=== PATIENT | male | born 1980 | race Caucasian/White ===

== ENCOUNTER 2018-05-24 16:10 | Outpatient (REF) | payer BC, SELFPAY ==
[2018-05-24 18:43] LABS: COMMENT (LAB VIEW ONLY) 47.69 mg/dL; Microalb ug/mg Crea 7.1 ug/mg Cr
== END 2018-05-24 16:30 ==
LOC: NCHCN 16:10
PROVIDERS: PCP Family Medicine; Visit Provider Family Medicine
DX: E11.9 Type 2 diabetes mellitus without complications (principal)
CPT/HCPCS: 82043; 82570

== ENCOUNTER 2018-08-13 08:01 | Outpatient (CLI) | payer BC, SELFPAY ==
--- NOTE | 2018-08-13 | PFT_ITS ---
PULMONARY FUNCTION TEST REPORT DATE OF DICTATION August 23, 2018 Patient identification - Sarabjit Valdez DATE OF - 80 DATE OF SERVICE - August 13, 2018 REQUESTING PROVIDER - Temo Narvaez M.D. INTERPRETATION OF STUDY Spirometry shows no evidence of obstructive airways disease, No bronchodilator response. LUNG VOLUMES - Lung volumes no evidence of restriction. DIFFUSION CAPACITY- Normal. AIRWAY RESISTANCE - Normal. IMPRESSION Overall normal pulmonary function study. Clinical correlation recommended. When this study was compared to previous once from 01/01/15, the patient had an overall 190 cc improvement in FVC. FEV1 has improved by 80 cc. Clinical correlation recommended. Bess Suazo M.D. ROSEMARY/karina T - 08/23/2018
[2018-08-13] MEDS: Albuterol HFA 18 GM 200 PUFF INH IH (08:54)
[2018-08-13] MEDS: Inhaler, Assist Device 1 EACH MC (08:54)
== END 2018-08-13 08:21 ==
PROVIDERS: PCP Family Medicine; Visit Provider Family Medicine
DX: J45.40 Moderate persistent asthma, uncomplicated (principal); F17.200 Nicotine dependence, unspecified, uncomplicated
CPT/HCPCS: 94060; 94150; 94726; 94729

== ENCOUNTER 2018-08-30 17:30 | Emergency (ER) | payer BC, SELFPAY ==
[2018-08-30 17:36] VITALS: BP 120/86; PULSE 103; RESP 18; O2SAT 99
--- NOTE | 2018-08-30 17:41 | W.ED.GENAD ---
Discharge Plan Disposition Patient Disposition: HOME Condition: Good Discharge Details Chief Complaint: Abd Prob Clinical Impression: Eosinophilia, Abdominal pain Primary Care Provider: Temo Narvaez ED Provider: Sherman Stapleton Home Meds and New Rx's Prescriptions: New acetaminophen [Mapap Extra Strength] 500 MG tablet 1,000 mg PO Q6H 5 Days Qty: 60 RF: 0 ibuprofen [Motrin IB] 200 MG tablet 600 mg PO Q6H 5 Days Qty: 60 RF: 0 ondansetron HCl [Zofran] 4 mg tablet 4 mg PO TID PRN (Reason: nausea and vomiting) Qty: 10 RF: 0 hydrocodone-acetaminophen [[place]] 7.5-325 mg tablet 1 tab PO Q6H Qty: 4 RF: 0 No Action metformin 500 MG tablet 1,000 mg PO DAILY RF: 0 chlorthalidone 25 MG tablet 12.5 mg PO DAILY RF: 0 azelastine 137 MCG/0.137 ML aerosol,spray 2 spry NS QID RF: 0 Nicotine [Nicoderm Cq] 1 EACH PATCH.TD24 1 ea Transdermal DAILY RF: 0 PROVENTIL HFA 18 GM HFA.AER.AD 2 puff Inhalation Q4H PRN RF: 0 lisinopril 20 MG tablet 20 mg PO DAILY RF: 0 mometasone [Nasonex] 17 GM spray,non-aerosol 2 spry NS DAILY RF: 0 Ponaris 30 ML solution 30 ml NS QID PRNRF: 0 Advair Diskus 1 EACH blister with device 1 ea Inhalation BID RF: 0 montelukast 10 MG tablet 10 mg PO DAILY RF: 0 Prilosec OTC 20 MG tablet,delayed release (DR/EC) 20 mg PO DAILY RF: 0 loratadine 10 MG tablet 1 tab PO DAILY RF: 0 ibuprofen 800 MG tablet 800 mg PO TID PRNQty: 20 RF: 0 Flovent HFA 120 PUFF HFA aerosol inhaler 1 puff Inhalation BID RF: 0 Discharge Instructions Instructions: Abdominal Pain (ED) Additional Instructions: Please stick with an easy diet for the next few days. As soon as you have a bowel movement please bring it in for further evaluation. Please avoid these following foods: Soy, wheat, egg, milk, peanut/tree nuts, and fish/shellfish . Please follow-up at your scheduled appointment with Dr. Williamson. The clinic will contact you when this is. If you do not hear back within 3-4 days please contact the hospital for this appointment. Please have a low threshold for return. If you notice any worsening of your symptoms, or any new symptoms such as vomiting, diarrhea, fever, chills, shortness of breath, chest pain, numbness, weakness, or fainting , please return immediately to the emergency department for reevaluation. Please follow up with your primary care provider as soon as possible for reassessment and reevaluation. As always, it was a pleasure participating in your medical care today. Referrals: Temo Narvaez [Primary Care Provider] - Medical Decision Making This is a 37-year-old male with a past medical history of diabetes, hypertension, high cholesterol and asthma who presents for abdominal pain with nausea and vomiting. Pain began last night and is gradually worsened. He describes it as a burning sensation. He has never had symptoms like this before. No evidence of testicular torsion clinically on exam. Differential is very concerning for appendicitis, colitis, or diverticulitis. We will get a CT scan to rule this out, control his pain, hydrate him, and assess for other laboratory abnormalities. 9:24 PM Patient's laboratory workup has returned and demonstrates an elevated WBC count at 21 as well as a left shift but surprisingly there is also notable eosinophilia which is certainly atypical of the patient's presentation. Electrolytes, renal function, lipase are all normal. Urinalysis is negative. The patient's CT scan was ordered and showed no evidence of significant acute process. No evidence of appendicitis, small foci of air in the subcutaneous tissues, however on exam there is no clinical findings of necrotizing fasciitis. Continued lack of testicular tenderness. Foci of air seem to be in conjunction with where he has been injecting himself with insulin. Patient's symptoms were notably improved with Tylenol Motrin and Dilaudid. He actually did not do well with the Dilaudid but improved more so with Tylenol and Motrin. Zofran also significantly helped his symptoms. In spite of the negative CT scan, because of the patient's elevated white count and abdominal pain I did contact the surgeon Dr. Williamson. He graciously came and reviewed the case, images, and the patient. We spent an extended period discussing the patient's case, as well as the atypical nature of the laboratory findings and CT. We thoroughly interrogated the patient regarding other potential sources of eosinophilia including foreign travel, recent steroid use, eating of atypical foods, other sick contacts, or occupation. No focal source could be identified. No recent foreign travel. Patient does eat a significant amount of medicine but this is all well cooked. He denies any other significant diet changes except for recently increasing Splenda and decreasing his sugar. At this point Dr. Williamson does not feel that there is any acute surgical abnormality. We are unsure as to the exact reasons for his symptoms. I had a long discussion with the patient, Dr. Williamson, and the patient's family discussing the next step. We did do a p.o. trial patient tolerated crackers and juice well. He had no subsequent vomiting. Pain is controlled. With the patient's current clinical picture, his ability to currently tolerate p.o., his nausea and pain being controlled, we did discuss admission versus discharge, after thorough discussion of the risks and benefits both ways the patient and family have elected to go home. I do feel it is reasonable to respect the patient's wishes at this time. I had an extremely long and thorough discussion with him regarding red flags which to return, the importance of a low threshold for return, as well as close follow-up with Dr. Williamson for surgery on an outpatient basis. We will order outpatient stool studies for ova and parasites as well as Giardia. I have extensively reviewed the treatment plan and discharge instructions with the patient and their family. I have addressed all patient concerns at this time. The patient and family was made aware of what symptoms to monitor for that would warrant a return to the emergency department. Discussed the plan with the patient and family, they demonstrate verbal understanding and agreement with our assessment and plan at this time. ABDOMEN: Liver: Mildly fatty liver. No hepatic masses. Gallbladder and bile ducts: No calcified stones. No ductal dilation. Pancreas: No ductal dilation. No masses. Spleen: No splenomegaly or focal lesions. Adrenals: 9 mm intermediate density, indeterminate left adrenal nodule. Statistically most likely an adenoma. Follow-up as per institutional protocol. Normal morphology the right adrenal gland. Kidneys and ureters: No hydronephrosis. No renal masses. Stomach and bowel: Descending and sigmoid diverticulosis. No focal pathology in the remainder of the colon. Appendix: Normal morphology of the appendix. PELVIS: Bladder: Unremarkable as visualized. Reproductive: Unremarkable as visualized. ABDOMEN and PELVIS: Intraperitoneal space: No free air. No significant fluid collection. Bones/joints: No acute fracture. No dislocation. Soft tissues: Very small foci of inflammatory changes in the subcutaneous fat, right lower quadrant into the pubic region, with minimal skin thickening. Vasculature: No abdominal aortic aneurysm. Lymph nodes: No significantly enlarged lymph nodes. IMPRESSION: 1. No acute findings within the abdomen or pelvis. No evidence of appendicitis. 2. Very small foci of inflammatory changes in the subcutaneous fat, right lower quadrant into the pubic region, with minimal skin thickening. Appear very minimal and benign, question cellulitis or contusion, however described given location of pain in right lower quadrant. 3. Incidental findings as described. Dictated and Authenticated by: Tootie Buenrostro MD. HPI General Date/Time Provider Initiated Documentation: 08/30/18 17:31. HPI Narrative: This is a 37-year-old male with past medical history of diabetes, hypertension, high cholesterol, and asthma who presents today for abdominal pain. Patient states that starting last night he had some mild infraumbilical abdominal pain, with decreased appetite. He ate a small amount of fluid last night but that was all. Since this morning he has had severe lower abdominal pain which she describes as burning. It is present on the left and the right but slightly worse on the right. Does have associated chills. He has regular soft bowels at all times and this is been unchanged. He does admit to nausea and some vomiting. He denies any hematemesis, melena, acholic stool. He denies any dysuria, hematuria or testicular pain. He denies any other modifying factors. He has been taking his diabetes medications as directed. No other complaints at this time. He denies any previous abdominal surgeries. Related Data Home Medications Medication Instructions Recorded Confirmed fluticasone-salmeterol [Advair 1 ea INHALATION BID 11/25/12 08/30/18 250-50 Diskus] montelukast 10 mg PO DAILY 11/25/12 08/30/18 omeprazole magnesium [PriLOSEC Otc] 20 mg PO DAILY 11/25/12 08/30/18 loratadine 1 tab PO DAILY 12/04/13 08/30/18 ibuprofen 800 mg PO TID PRN #20 tablet 07/17/14 08/30/18 fluticasone [Flovent 220MCG] 1 puff INHALATION BID 11/24/16 08/30/18 Nicotine [Nicoderm Cq] 1 ea TRANSDERMAL DAILY script 01/16/18 Proventil Hfa 2 puff INHALATION Q4H PRN inhaler 01/16/18 azelastine 2 spry NS QID spray 01/16/18 08/30/18 chlorthalidone 12.5 mg PO DAILY 01/16/18 08/30/18 metformin 1,000 mg PO DAILY tab-cap 01/16/18 08/30/18 eucalyptus-peppermint oil [Ponaris 30 ml NS QID PRN 01/30/18 08/30/18 Nasal Emollient] lisinopril 20 mg PO DAILY tab-cap 01/30/18 08/30/18 mometasone [Nasonex] 2 spry NS DAILY spray 01/30/18 08/30/18 acetaminophen [Mapap Extra 1,000 mg PO Q6H 5 Days #60 tab 08/30/18 Strength] hydrocodone-acetaminophen [[place]] 1 tab PO Q6H #4 tab 08/30/18 ibuprofen [Motrin Ib] 600 mg PO Q6H 5 Days #60 tab 08/30/18 ondansetron HCl [Zofran] 4 mg PO TID PRN #10 tab 08/30/18 Previous Rx's Medication Instructions Recorded ibuprofen 800 mg PO TID PRN #20 tablet 07/17/14 acetaminophen [Mapap Extra 1,000 mg PO Q6H 5 Days #60 tab 08/30/18 Strength] hydrocodone-acetaminophen [[place]] 1 tab PO Q6H #4 tab 08/30/18 ibuprofen [Motrin Ib] 600 mg PO Q6H 5 Days #60 tab 08/30/18 ondansetron HCl [Zofran] 4 mg PO TID PRN #10 tab 08/30/18 Allergies Allergy/AdvReac Type Severity Reaction Status Date / Time morphine AdvReac severe Unverified 08/30/18 17:39 vomiting General Stated Complaint: Abd Prob TERRI: 3 Review of Systems Review of Systems All systems reviewed & are unremarkable except as noted in HPI and below PFSH Medical History Leukocytosis (leucocytosis) (Acute) Eosinophilia (Acute) Abdominal pain (Acute) Allergic rhinitis Asthma, moderate persistent Cervical spine disease Diabetes mellitus type II, non insulin dependent Fatty liver disease, nonalcoholic Hyperlipidemia Hypertension Obstructive sleep apnea Tobacco abuse Surgical History Excision, Pilonidal Cyst Social History Smoking/Tobacco Use Status: Current every day Exam Narrative Exam Narrative: 1.Const: Well-nourished, Well-developed, appearing stated age 2.Eyes: PERRL, no conjunctival injection, and symmetrical lids. 3.ENT: Atraumatic external nose and ears. Moist MM. Neck: Symmetric, trachea midline, No thyromegaly. 4.CVS: +S1/S2, No murmurs or gallops. Peripheral pulses 2+ and equal in all extremities. Brisk capillary refill in all extremities. 5.RESP: Unlabored respiratory effort. Clear to auscultation bilaterally. No wheezes rales or rhonchi 6.GI: Soft, nondistended, patient does have notable tenderness in the right lower and left lower and infraumbilical region. Pain is made worse with palpation. Positive pain at McBurney's point, negative Lezama sign. Negative obturator and psoas sign. Notable right CVA tenderness with minimal left CVA tenderness. Positive Rovsing sign. Testicular exam was performed with nurse at bedside, bilaterally descended testicles, normal cremasteric reflex bilaterally. 7.MSK: Normocephalic/Atraumatic, Extremities w/o deformity or ttp No cyanosis or clubbing, Normal movement of all extremities 8.Skin: Warm, Dry. No rashes or lesions. 9.Neuro: telephone service adviser II-XII grossly intact. Sensation grossly intact, no focal neurologic deficits. 10.Psych: (AAO) x3. Appropriate mood and affect Course Vital Signs Pulse 103 H 08/30/18 17:36 Respiratory Rate 18 08/30/18 17:36 Blood Pressure 120/86 08/30/18 17:36 Pulse Oximetry 99 08/30/18 17:36 Pulse 103 H 08/30/18 17:36 Respiratory Rate 18 08/30/18 17:36 Blood Pressure 120/86 08/30/18 17:36 Blood Pressure Position Sitting 08/30/18 17:36 Pulse Oximetry 99 08/30/18 17:36 Oxygen Delivery Method Room Air 08/30/18 17:36 Oxygen Flow Rate 0 08/30/18 17:36 Pain Level 10 08/30/18 17:36
[2018-08-30] MEDS: HYDROmorphone 2 MG/ML VIAL 1 MG IVP (17:44)
[2018-08-30 17:51] VITALS: PULSE 91; RESP 10; O2SAT 92
[2018-08-30 17:55] VITALS: BP 133/79; PULSE 86; PULSE 90; O2SAT 96
[2018-08-30 17:55] LABS: Abs Immature Grans 0.06 k/cumm (0.0-0.09); Absolute Basophil Count 0.08 k/cumm (0.0-0.2); Absolute Neutrophil Count 14.69 k/cumm (1.2-6.7); Basophils % 0.4; Eosinophils % 11.1; Immature Grans % 0.3; Lymphocytes % 12.9; Mean Corpuscular Hemoglobin 28.9 pg (27.0-33.0); Mean Corpuscular Volume 84.8 fL (80-95); Mean Platelet Volume 10.1 fL (8.0-11.0); Monocytes % 5.9; Neutrophils % 69.4; Platelet Count 331 x1000/uL (130-400); RBC 5.54 m/cumm (4.50-6.00); RBC Distribution Width 13.6 % (11.8-14.1); White Blood Cell Count 21.17 k/cumm (4.4-10.8)
--- NOTE | 2018-08-30 17:55 | NUR.NOTE ---
Nursing Note: Pt. became very flushed and dizzy while this RN administered IVP dilaudid. About 0.5 mg pushed, pt. became light-headed, felt flushed and dizzy. VS remained stable, HOB lowered, pt. did state pain was much improved and above s/s improved as well. MD Stapleton aware.
[2018-08-30 17:56] LABS: Absolute Eosinophil Count 2.35 k/cumm (0.0-0.7); Absolute Lymphocyte Count 2.73 k/cumm (1.2-3.4); Absolute Monocyte Count 1.25 k/cumm (0.11-0.7)
[2018-08-30] MEDS: Lactated Ringers 1,000 ML 1000 ML IV (17:56)
[2018-08-30 18:00] VITALS: PULSE 91
[2018-08-30 18:07] LABS: ALT 29 U/L (12-78); AST 10 U/L (15-37); Alkaline Phosphatase 96 U/L (46-116); Anion Gap 7.4 mmol/L (3-11); BUN 13 mg/dL (7-18); Bilirubin, Total 0.3 mg/dL (0.2-1.0); CO2 30.6 mmol/L (21.0-32.0); CREATININE 0.97 mg/dL (0.70-1.30); Calcium 9.5 mg/dL (8.5-10.1); Chloride 101 mmol/L (98-107); Glucose 93 mg/dL (70-100); Lipase 182 U/L (73-393); Potassium 4.5 mmol/L (3.5-5.1); Sodium 139 mmol/L (136-145)
[2018-08-30 18:22] LABS: Diff Comment Agrees w/ Instrument; RBC Morphology Normal
[2018-08-30] MEDS: ACETAMINOPHEN 1,000 MG/100 ML BTL 400 MG IVPB (18:36)
[2018-08-30] MEDS: Ketorolac 30 MG/ML VIAL IVP (18:37)
--- NOTE | 2018-08-30 18:40 | DI.CT_ITS ---
SYMPTOM/DIAGNOSIS: SEVERE RLQ PAIN ABDOMEN AND PELVIC CT: Images were performed from the lung bases through the ischial tuberosities after IV and without oral contrast. The appendix appears normal. There is no bowel dilatation or inflammatory change. A few diverticula are seen in the sigmoid region. There is no free air, free fluid or adenopathy. The liver, gallbladder, spleen, pancreas, kidneys and adrenals are unremarkable. The aorta is normal in diameter. The bladder and prostate are unremarkable. No significant bony abnormalities are seen. There is minimal increased density in the subcutaneous fat of the right lower quadrant. The findings could be secondary to injections. Clinical correlation is recommended. There is no evidence of a drainable fluid collection or abscess. IMPRESSION: Areas of nodular increased density in the subcutaneous fat of the right lower anterior abdominal wall may be secondary to injections. Clinical correlation is recommended.
[2018-08-30] MEDS: Omnipaque 350 MG/ML 100 ML BTL IJ (18:46)
[2018-08-30] MEDS: Normal Saline Flush 10 ML SYR IVP (18:47)
--- NOTE | 2018-08-30 19:32 | DI.VRAD_ITS ---
EXAM: CT Abdomen and Pelvis With Contrast EXAM DATE/TIME: 08/30/2018 5:40 PM CLINICAL HISTORY: 37 years old, male; Pain; Abdominal pain; Localized; Right lower quadrant (rlq); Patient HX: Rlq pain, severe TECHNIQUE: Axial computed tomography images of the abdomen and pelvis with intravenous contrast. Coronal and sagittal reformatted images were created and reviewed. COMPARISON: CR PELVIS AP 03/24/2015 2:22 PM FINDINGS: Lower thorax: Minimal dependent subsegmental atelectasis. ABDOMEN: Liver: Mildly fatty liver. No hepatic masses. Gallbladder and bile ducts: No calcified stones. No ductal dilation. Pancreas: No ductal dilation. No masses. Spleen: No splenomegaly or focal lesions. Adrenals: 9 mm intermediate density, indeterminate left adrenal nodule. Statistically most likely an adenoma. Follow-up as per institutional protocol. Normal morphology the right adrenal gland. Kidneys and ureters: No hydronephrosis. No renal masses. Stomach and bowel: Descending and sigmoid diverticulosis. No focal pathology in the remainder of the colon. Appendix: Normal morphology of the appendix. PELVIS: Bladder: Unremarkable as visualized. Reproductive: Unremarkable as visualized. ABDOMEN and PELVIS: Intraperitoneal space: No free air. No significant fluid collection. Bones/joints: No acute fracture. No dislocation. Soft tissues: Very small foci of inflammatory changes in the subcutaneous fat, right lower quadrant into the pubic region, with minimal skin thickening. Vasculature: No abdominal aortic aneurysm. Lymph nodes: No significantly enlarged lymph nodes. IMPRESSION: 1. No acute findings within the abdomen or pelvis. No evidence of appendicitis. 2. Very small foci of inflammatory changes in the subcutaneous fat, right lower quadrant into the pubic region, with minimal skin thickening. Appear very minimal and benign, question cellulitis or contusion, however described given location of pain in right lower quadrant. 3. Incidental findings as described. Dictated and Authenticated by: Tootie Buenrostro MD. Ordering:FILIPE Whitaker MD
[2018-08-30 19:59] VITALS: BP 99/50; PULSE 89; RESP 24; TEMP 37.2; O2SAT 95
[2018-08-30 20:06] LABS: Bilirubin Negative (Negative); Blood Negative (Negative); Clarity Clear; Glucose Negative (Negative); Ketones Negative (Negative); Leukocyte Esterase Negative (Negative); Nitrite Negative (Negative); Urobilinogen 0.2 EU/dL (Up TO 0.2)
--- NOTE | 2018-08-30 20:21 | W.SURGCON ---
Date of service: 08/30/18 Time of Service: 20:21 Assessment and Plan (1) Abdominal pain: Start date: 08/30/18 Start time: 20:27 Current visit: Yes Status: Acute ct shows unremarkable scan there is a focal area of ileus pt having lower abd pain hes hungry and having his normal BM dont see a surgical reason for this finding and may be related to his newly diagnosed DM or the elevated eosinophils (2) Eosinophilia: Start date: 08/30/18 Start time: 20:27 Current visit: Yes Status: Acute unsure but extremely high- may need workup as cause (3) Leukocytosis (leucocytosis): Start date: 08/30/18 Start time: 20:27 Current visit: Yes Status: Acute poss related to the ileus poss new onset IBD History of Present Illness Chief Complaint: abddominal pain Review of Systems Constitutional Reports as per HPI Gastrointestinal Reports as per HPI and Reports abdominal pain (lower abdomen) PFSH Medical History Allergic rhinitis Asthma, moderate persistent Cervical spine disease Diabetes mellitus type II, non insulin dependent Fatty liver disease, nonalcoholic Hyperlipidemia Hypertension Obstructive sleep apnea Tobacco abuse Surgical History Excision, Pilonidal Cyst Social History Smoking/Tobacco Use Status: Current every day Exam Narrative Exam Narrative: pt has had odd BM for years Const General: cooperative Orientation: alert, awake and oriented x3 GI Inspection: normal to inspection Palpation: tender in the LLQ and in the RLQ Percussion: tympanic to percussion Auscultation: normal bowel sounds Other: focal ileus of small bowel, pain eosinophilia unknown cause Results Last Vital Signs Temp 37.2 C 08/30/18 19:59 Pulse 89 08/30/18 19:59 Resp 24 08/30/18 19:59 BP 99/50 L 08/30/18 19:59 Pulse Ox 95 08/30/18 19:59 Labs : 08/30/18 17:42 08/30/18 17:42 Laboratory Results - last 24 hr 08/30/18 08/30/18 08/30/18 17:42 17:42 17:42 WBC 21.17 H RBC 5.54 Hgb 16.0 Hct 47.0 MCV 84.8 MCH 28.9 MCHC 34.0 RDW 13.6 Plt Count 331 MPV 10.1 Immature Gran % 0.3 Neutrophils % 69.4 Lymphocytes % 12.9 Monocytes % 5.9 Eosinophils % 11.1 Basophils % 0.4 Absolute Neutrophils 14.69 H Absolute Lymphocytes 2.73 Absolute Monocytes 1.25 H Absolute Eosinophils 2.35 H Absolute Basophils 0.08 Differential Comment Agrees w/ instrument RBC Morphology Normal Sodium 139 Potassium 4.5 Chloride 101 Carbon Dioxide 30.6 Anion Gap 7.4 BUN 13 Creatinine 0.97 Estimated GFR/1.73 m2 >= 60.00 Glucose 93 Calcium 9.5 Total Bilirubin 0.3 AST 10 L ALT 29 Alkaline Phosphatase 96 Total Protein 8.0 Albumin 4.0 Lipase 182 Urine Color Urine Clarity Urine pH Ur Specific [place] Urine Protein Urine Ketones Urine Blood Urine Nitrite Urine Bilirubin Urine Urobilinogen Ur Leukocyte Esterase Urine Glucose Patient ABO/Rh O Positive Antibody Screen Negative 08/30/18 19:55 WBC RBC Hgb Hct MCV MCH MCHC RDW Plt Count MPV Immature Gran % Neutrophils % Lymphocytes % Monocytes % Eosinophils % Basophils % Absolute Neutrophils Absolute Lymphocytes Absolute Monocytes Absolute Eosinophils Absolute Basophils Differential Comment RBC Morphology Sodium Potassium Chloride Carbon Dioxide Anion Gap BUN Creatinine Estimated GFR/1.73 m2 Glucose Calcium Total Bilirubin AST ALT Alkaline Phosphatase Total Protein Albumin Lipase Urine Color Yellow Urine Clarity Clear Urine pH 7.0 Ur Specific [place] 1.010 Urine Protein Negative Urine Ketones Negative Urine Blood Negative Urine Nitrite Negative Urine Bilirubin Negative Urine Urobilinogen 0.2 Ur Leukocyte Esterase Negative Urine Glucose Negative Patient ABO/Rh Antibody Screen
[2018-08-30] MEDS: Ondansetron 4 MG/2 ML VIAL IVP (21:24)
[2018-08-30] MEDS: Ondansetron O.D.T. 4 MG TABEF (21:45)
[2018-08-30] MEDS: HYDROcodone 5/Acetaminophen 325 TAB (21:50)
[2018-08-30] MEDS: Prochlorperazine 10 MG TAB PO (22:00)
[2018-08-30 22:05] VITALS: BP 99/50; PULSE 89; RESP 24; TEMP 37.2; O2SAT 95
--- NOTE | 2018-08-31 08:30 | PDOC.ERCMPRO ---
Care Management Progress Note 08/30-Dr. Stapleton requested internet marketing assistant with a surgical f/u within one week for abdominal pain, eosinophilia. Referral faxed to [facility] this am.
--- NOTE | 2018-08-31 08:32 | CMPROGNOTE_ITS ---
Care Management Progress Note 08/30-Dr. Stapleton requested ophthalmic assistant with a surgical f/u within one week for abdominal pain, eosinophilia. Referral faxed to [facility] this am.
== END 2018-08-30 22:06 | disposition home or self-care (01) ==
PROVIDERS: Emergency Provider Student in an Organized Health Care Education/Training Program; PCP Family Medicine
DX: D72.1 Eosinophilia (principal); R10.9 Unspecified abdominal pain; I10 Essential (primary) hypertension; E11.9 Type 2 diabetes mellitus without complications
CPT/HCPCS: 80053; 83690; 86850; 86900; 86901; 96361; 96374; 96375; 99252; 99285; 74177; 81003; 85025; 87177; 99284; J0131; J1885; J2405; J3490

== ENCOUNTER 2018-08-31 08:21 | Emergency (ER) | payer BC, SELFPAY ==
[2018-08-31 08:37] VITALS: BP 138/91; PULSE 100; RESP 18; TEMP 36.7; O2SAT 97
--- NOTE | 2018-08-31 08:49 | W.ED.GENAD ---
Discharge Plan Disposition Patient Disposition: HOME Condition: Stable Discharge Details Chief Complaint: Abd Prob Clinical Impression: Abdominal pain, Eosinophilia, Leukocytosis (leucocytosis), Eosinophilic gastroenteritis Primary Care Provider: Temo Narvaez ED Provider: Kye Acharya Home Meds and New Rx's Prescriptions: New albendazole 200 mg tablet 400 mg PO BID 5 Days Qty: 20 RF: 0 prednisone 20 mg tablet 60 mg PO DAILY 5 Days Qty: 15 RF: 0 No Action metformin 500 MG tablet 1,000 mg PO DAILY RF: 0 lisinopril 20 MG tablet 20 mg PO DAILY RF: 0 mometasone [Nasonex] 17 GM spray,non-aerosol 2 spry NS DAILY RF: 0 montelukast 10 MG tablet 10 mg PO DAILY RF: 0 Prilosec OTC 20 MG tablet,delayed release (DR/EC) 20 mg PO DAILY RF: 0 loratadine 10 MG tablet 1 tab PO DAILY RF: 0 acetaminophen [Mapap Extra Strength] 500 MG tablet 1,000 mg PO Q6H 5 Days Qty: 60 RF: 0 ibuprofen [Motrin IB] 200 MG tablet 600 mg PO Q6H 5 Days Qty: 60 RF: 0 ondansetron HCl [Zofran] 4 mg tablet 4 mg PO TID PRN (Reason: nausea and vomiting) Qty: 10 RF: 0 Bydureon 2 mg/0.65 mL Pen Injector See Rx Instructions .ROUTE .COMPLEX RF: 0 Discharge Instructions Additional Instructions: You are being started on a parasite medicine while your stool studies are being done You are also being started on steroids for 5 days. When you follow up with your primary care provider you should discuss if you should continue on a longer course of steroids return to the emergency department for persistent vomit, severe pain not controlled with oral medications or high fevers Medical Decision Making 37 yo male comes in with abodminal pain and n/v since this morning. He was seen in the ED yesterday for similar complaints and had labs showing leukocytosis and eosinophilia and had a CT that did not show any acute abnormalities of significance, and had a surgical consult that felt he had a nonsurgical abdomen. He states he felt better last night but symptoms returned this morning. He has pain in the lower abomen without guarding or rebound. Denies chest pain or sob. Denies new meds or foods and no other person in the house has similar symptoms. No testicle pain or swelling to suggest torsion. Will give IVF, repeat labs and monitor at this time, unclear etiology of his pain, given it is similar to yesterday not sure if CT indicated. Has no weakness, skin color changes or other symptoms to suggest adrenal crisis. Will check stool studies for parasites as cause of his eosinophilia Pt remains stable, pain is much improved and is tolerating PO. Labs show continued leukocytosis and eosinophilia. He has no tenderness on abdominal exam so do not feel repeat imaging indicated. I suspect he has some gi parasitic infection vs eosinophilic gastroenteritis. Per uptodate recs steroids can be of benefit so will start this and have him f/u with pcp to see if taper should be started, and also would start on albendazole for 5 days while stool studies are pending. He feels well enough to be d/c'd and understands to return if anything worsens Differential Diagnosis appendicitis, diverticulitis, food related illness ECG Data Attestation: I personally reviewed and interpreted this ECG (s) as follows: Prior ECG tracings: not available for review Interpretation: sinus rhythm, rate of 89, pr 150, no acute st t wave ischemic changes HPI General Mode of arrival: ambulatory. Date/Time Provider Initiated Documentation: 08/31/18 08:40. Limitations to Documentation: no limitations. Information obtained by: patient. History of Present Illness 37 year old M presents to the emergency department with the chief complaint of abdominal pain, described as severe, with intensity rated at 10. Quality is described as stabbing, and is localized to the abdomen. Patient reports no radiation. Patient started experiencing this hour(s) (3) and it has been constant. No relieving factors improve symptom(s), No exacerbating factors reported . Patient notes nausea/vomiting. Patient did receive the following treatments prior to arrival, none Related Data Home Medications Medication Instructions Recorded Confirmed montelukast 10 mg PO DAILY 11/25/12 08/31/18 omeprazole magnesium [PriLOSEC Otc] 20 mg PO DAILY 11/25/12 08/31/18 loratadine 1 tab PO DAILY 12/04/13 08/31/18 metformin 1,000 mg PO DAILY tab-cap 01/16/18 08/31/18 lisinopril 20 mg PO DAILY tab-cap 01/30/18 08/31/18 mometasone [Nasonex] 2 spry NS DAILY spray 01/30/18 08/31/18 acetaminophen [Mapap Extra 1,000 mg PO Q6H 5 Days #60 tab 08/30/18 08/31/18 Strength] ibuprofen [Motrin Ib] 600 mg PO Q6H 5 Days #60 tab 08/30/18 08/31/18 ondansetron HCl [Zofran] 4 mg PO TID PRN #10 tab 08/30/18 08/31/18 albendazole 400 mg PO BID 5 Days #20 tab 08/31/18 exenatide microspheres [Bydureon] See Rx Instructions .ROUTE .COMPLEX 08/31/18 08/31/18 prednisone 60 mg PO DAILY 5 Days #15 tab 08/31/18 Previous Rx's Medication Instructions Recorded acetaminophen [Mapap Extra 1,000 mg PO Q6H 5 Days #60 tab 08/30/18 Strength] ibuprofen [Motrin Ib] 600 mg PO Q6H 5 Days #60 tab 08/30/18 ondansetron HCl [Zofran] 4 mg PO TID PRN #10 tab 08/30/18 albendazole 400 mg PO BID 5 Days #20 tab 08/31/18 prednisone 60 mg PO DAILY 5 Days #15 tab 08/31/18 Allergies Allergy/AdvReac Type Severity Reaction Status Date / Time hydromorphone [From Dilaudid] AdvReac Other (See Unverified 08/31/18 09:12 Comment) morphine AdvReac severe Unverified 08/30/18 17:39 vomiting General Stated Complaint: Abd Prob TERRI: 2 Review of Systems Review of Systems All systems reviewed & are unremarkable except as noted in HPI and below Constitutional Denies chills and Denies fever(s) Cardiovascular Denies chest pain and Denies dyspnea Respiratory Denies dyspnea Gastrointestinal Reports vomiting Genitourinary Denies dysuria Musculoskeletal Denies joint swelling Integumentary/Breasts Denies rash [facility] Medical History Leukocytosis (leucocytosis) (Acute) Eosinophilia (Acute) Abdominal pain (Acute) Allergic rhinitis Asthma, moderate persistent Cervical spine disease Diabetes mellitus type II, non insulin dependent Fatty liver disease, nonalcoholic Hyperlipidemia Hypertension Obstructive sleep apnea Tobacco abuse Surgical History Excision, Pilonidal Cyst Social History Smoking/Tobacco Use Status: Current every day Exam Const General: well developed Orientation: alert HENMT Head: normal to inspection Ears: external ears normal General nose exam: external nose normal Mouth: moist mucous membranes Eyes General: appearance normal, both eyes and all related structures Neck Neck: normal visual inspection Resp Effort & Inspection: normal respiratory effort and able to speak in complete sentences Cardio Rate: regular rate GI Inspection: normal to inspection and no abdominal wall ecchymosis Skin General skin exam: no rashes or lesions noted Neuro General: alert and oriented x3 Extrem General: normal to inspection Psych Mental Status: mental status grossly normal Course Vital Signs Temperature 36.7 C 08/31/18 08:37 Pulse 100 H 08/31/18 08:37 Respiratory Rate 18 08/31/18 08:37 Blood Pressure 138/91 H 08/31/18 08:37 Pulse Oximetry 97 08/31/18 08:37 Temperature 36.7 C 08/31/18 08:37 Temperature Source Temporal Artery Scan 08/31/18 08:37 Pulse 100 H 08/31/18 08:37 Respiratory Rate 18 08/31/18 08:37 Blood Pressure 138/91 H 08/31/18 08:37 Blood Pressure Position Supine 08/31/18 08:37 Pulse Oximetry 97 08/31/18 08:37 Oxygen Delivery Method Room Air 08/31/18 08:37 Oxygen Flow Rate 0 08/31/18 08:37 Pain Level 10 08/31/18 08:37
[2018-08-31] MEDS: Normal Saline Flush 10 ML SYR IVP (09:01)
[2018-08-31] MEDS: Normal Saline 1,000 ML 1000 ML IV (09:05)
[2018-08-31 09:06] LABS: Abs Immature Grans 0.09 k/cumm (0.0-0.09); Basophils % 0.2; HCT 47.2 % (40.0-50.0); HGB 16.2 g/dL (13.5-17.5); Immature Grans % 0.4; Lymphocytes % 9.5; Mean Corp. HGB Concentration 34.3 g/dL (32.0-36.0); Mean Corpuscular Hemoglobin 29.2 pg (27.0-33.0); Mean Platelet Volume 10.2 fL (8.0-11.0); Monocytes % 6.2; Neutrophils % 75.7; Platelet Count 307 x1000/uL (130-400); RBC 5.55 m/cumm (4.50-6.00); RBC Distribution Width 13.6 % (11.8-14.1); White Blood Cell Count 22.53 k/cumm (4.4-10.8)
[2018-08-31] MEDS: Ketorolac 15 MG/ML VIAL IVP (09:06)
[2018-08-31] MEDS: Ondansetron 4 MG/2 ML VIAL IVP (09:06)
[2018-08-31 09:22] LABS: ALT 26 U/L (12-78); AST 10 U/L (15-37); Albumin 3.7 g/dL (3.4-5.0); Alkaline Phosphatase 103 U/L (46-116); Bilirubin, Direct 0.09 mg/dL (0.00-0.20); Bilirubin, Total 0.4 mg/dL (0.2-1.0); Total Protein 7.6 g/dL (6.4-8.2)
[2018-08-31 09:25] LABS: Absolute Basophil Count 0.05 k/cumm (0.0-0.2); Absolute Lymphocyte Count 2.14 k/cumm (1.2-3.4); Absolute Neutrophil Count 17.06 k/cumm (1.2-6.7)
[2018-08-31 09:26] LABS: ALT 27 U/L (12-78); AST 9 U/L (15-37); Albumin 3.7 g/dL (3.4-5.0); Alkaline Phosphatase 101 U/L (46-116); Anion Gap 12.1 mmol/L (3-11); BUN 17 mg/dL (7-18); Bilirubin, Total 0.4 mg/dL (0.2-1.0); CO2 26.9 mmol/L (21.0-32.0); CREATININE 0.99 mg/dL (0.70-1.30); Calcium 9.3 mg/dL (8.5-10.1); Chloride 102 mmol/L (98-107); Glucose 100 mg/dL (70-100); Lipase 135 U/L (73-393); Magnesium 1.7 mg/dL (1.8-2.4); Potassium 4.2 mmol/L (3.5-5.1); Sodium 141 mmol/L (136-145); Total Protein 7.6 g/dL (6.4-8.2)
[2018-08-31 09:28] LABS: Troponin I < 0.02 ng/mL (0.00-0.06)
[2018-08-31 09:29] LABS: Diff Comment Manual Differential; RBC Morphology Normal
[2018-08-31 09:31] LABS: INR 1.1 (0.9-1.1); PTT Activated 22.6 sec (21.0-31.4); Prothrombin Time 10.6 sec (9.3-11.0)
[2018-08-31 09:45] LABS: Bilirubin Negative (Negative); Blood Negative (Negative); Clarity Clear; Glucose Negative (Negative); Ketones Trace mg/dL (Negative); Leukocyte Esterase Negative (Negative); Nitrite Negative (Negative); Urobilinogen 0.2 EU/dL (Up TO 0.2)
[2018-08-31 09:55] VITALS: BP 104/62; PULSE 88; RESP 14; TEMP 37.1; O2SAT 95
[2018-08-31] MEDS: fentaNYL 100 MCG/2 ML VIAL IVP (09:56)
[2018-08-31 10:21] VITALS: BP 114/56; PULSE 94; O2SAT 96
[2018-08-31] MEDS: predniSONE 20 MG TAB 60 MG PO (10:22)
--- NOTE | 2018-08-31 10:32 | NUR.NOTE ---
patient eating crackers, drinking water Nursing Note:
--- NOTE | 2018-08-31 10:37 | NUR.NOTE ---
Nursing Note: Yani Sneed [facility] stated medication needs prior authorization. Called [facility], spoke with Ya to have them do prior authorization on albendazole. They are aware that the patient is being discharged and will need this medication. Appointment made for patient September 03Thursday at 10am with Dr. Narvaez. Vanesa Huertas.
[2018-08-31] MEDS: fentaNYL 100 MCG/2 ML VIAL 25 MCG IVP (13:35)
--- NOTE | 2018-09-01 06:44 | PDOC.ERCMPRO ---
Care Management Progress Note 08/31-Met with Sarabjit and his . He has been given a PCP appt for Thursday. Sarabjit and his had some questions about what the f/u would look like. Sarabjit states, I just want to work. Sarabjit and his had the opportunity to ask this CM questions. Sarabjit has this CM's contact information if further assistance is needed.
[2018-09-02 11:55] LABS: Campylobacter PCR SEE COMMENTS; Salmonella PCR SEE COMMENTS; Shiga Toxin PCR SEE COMMENTS; Shigella/Enteroinvasive Ecoli SEE COMMENTS
== END 2018-08-31 10:59 | disposition home or self-care (01) ==
PROVIDERS: Internal Medicine; Emergency Provider Emergency Medicine; PCP Family Medicine
DX: R10.9 Unspecified abdominal pain (principal); D72.1 Eosinophilia; D72.829 Elevated white blood cell count, unspecified; K52.81 Eosinophilic gastritis or gastroenteritis
CPT/HCPCS: 36415; 80053; 80076; 83690; 87329; 87505; 93005; 96361; 96374; 96375; 96376; 99284; 81003; 83735; 84484; 85025; 85610; 85730; 87177; 87324; 93010; J1885; J2405; J3010; J3490; J7512

== ENCOUNTER 2018-09-01 02:37 | Inpatient (IN) | payer BC, SELFPAY ==
[2018-09-01 02:41] VITALS: BP 157/105; PULSE 120; RESP 24; TEMP 36.8; O2SAT 96
--- NOTE | 2018-09-01 03:01 | W.ED.GENAD ---
Discharge Plan Disposition Patient Disposition: [facility] INPATIENT Condition: Fair Discharge Details Chief Complaint: Abd Prob Clinical Impression: Abdominal pain, Eosinophilia, Leukocytosis (leucocytosis) Primary Care Provider: Temo Narvaez ED Provider: Brent Schreiber [facility] and New Rx's Prescriptions: No Action metformin 500 MG tablet 1,000 mg PO DAILY RF: 0 lisinopril 20 MG tablet 20 mg PO DAILY RF: 0 mometasone [Nasonex] 17 GM spray,non-aerosol 2 spry NS DAILY RF: 0 montelukast 10 MG tablet 10 mg PO DAILY RF: 0 Prilosec OTC 20 MG tablet,delayed release (DR/EC) 20 mg PO DAILY RF: 0 loratadine 10 MG tablet 1 tab PO DAILY RF: 0 acetaminophen [Mapap Extra Strength] 500 MG tablet 1,000 mg PO Q6H 5 Days Qty: 60 RF: 0 ibuprofen [Motrin IB] 200 MG tablet 600 mg PO Q6H 5 Days Qty: 60 RF: 0 ondansetron HCl [Zofran] 4 mg tablet 4 mg PO TID PRN (Reason: nausea and vomiting) Qty: 10 RF: 0 Bydureon 2 mg/0.65 mL Pen Injector See Rx Instructions .ROUTE .COMPLEX RF: 0 albendazole 200 mg tablet 400 mg PO BID 5 Days Qty: 20 RF: 0 prednisone 20 mg tablet 60 mg PO DAILY 5 Days Qty: 15 RF: 0 Medical Decision Making Patient presents for the third time with severe abdominal pain. Pain appears to be out of proportion to his exam which shows essentially a soft abdomen with some mild tenderness. However he is diaphoretic, tachycardic and extremely uncomfortable. Previous workup has essentially been negative other than for leukocytosis and eosinophilia. IV is established and fluids started. Medications for nausea as well as pain given. Repeat laboratory studies ordered. CTA of the abdomen pelvis to evaluate for possible mesenteric ischemia ordered. Laboratory studies continue to show an elevated white count with eosinophilia. White count continues to go up. Other laboratory studies remain unremarkable including a lactic acid. CT pelvis negative. There is no pathology noted. Case discussed with surgery, Dr. Mixon. No surgical issue identified. Suggested speaking to GI at [facility]. Sent CT scans to [facility] for review. Spoke to GI fellow. Discussed laboratory findings. He did not think endoscopy or GI workup was necessarily going to find the issue. He thinks it is more related to the eosinophils and some systemic type reaction. Patient still uncomfortable and states that this episode was the worst it had been. Is not comfortable going home at this point because of recurrent pain and vomiting. Will discuss with hospitalist for observation admission for fluids and pain control as needed. They could consult infectious disease and hematology oncology at [facility] for further discussion. Dr. Mckeon here to see patient. Medical Records Medical records reviewed: Yes I reviewed the patient's medical records. Lab Data Lab results reviewed: Yes I reviewed the patient's lab results. HPI General Mode of arrival: ambulatory. Date/Time Provider Initiated Documentation: 09/01/18 02:46. Limitations to Documentation: no limitations. Information obtained by: patient. HPI Narrative: Patient presents for the third time since the for severe lower abdominal pain. Pain is described as sharp and cramping. He has associated watery diarrhea as well as nausea and vomiting. In between bouts he is relatively okay and able to take some p.o. He has been evaluated with laboratory studies, CT scan, surgical consultation. Stool studies are pending. C. difficile is negative. He has been noted to have a leukocytosis as well as eosinophilia. No definite etiology has been identified. Presents again tonight with severe pain that has him doubled over. Related Data Home Medications Medication Instructions Recorded Confirmed montelukast 10 mg PO DAILY 11/25/12 09/01/18 omeprazole magnesium [PriLOSEC Otc] 20 mg PO DAILY 11/25/12 09/01/18 loratadine 1 tab PO DAILY 12/04/13 09/01/18 metformin 1,000 mg PO DAILY tab-cap 01/16/18 09/01/18 lisinopril 20 mg PO DAILY tab-cap 01/30/18 09/01/18 mometasone [Nasonex] 2 spry NS DAILY spray 01/30/18 09/01/18 acetaminophen [Mapap Extra 1,000 mg PO Q6H 5 Days #60 tab 08/30/18 09/01/18 Strength] ibuprofen [Motrin Ib] 600 mg PO Q6H 5 Days #60 tab 08/30/18 09/01/18 ondansetron HCl [Zofran] 4 mg PO TID PRN #10 tab 08/30/18 09/01/18 albendazole 400 mg PO BID 5 Days #20 tab 08/31/18 09/01/18 exenatide microspheres [Bydureon] See Rx Instructions .ROUTE .COMPLEX 08/31/18 09/01/18 prednisone 60 mg PO DAILY 5 Days #15 tab 08/31/18 09/01/18 Previous Rx's Medication Instructions Recorded acetaminophen [Mapap Extra 1,000 mg PO Q6H 5 Days #60 tab 08/30/18 Strength] ibuprofen [Motrin Ib] 600 mg PO Q6H 5 Days #60 tab 08/30/18 ondansetron HCl [Zofran] 4 mg PO TID PRN #10 tab 08/30/18 albendazole 400 mg PO BID 5 Days #20 tab 08/31/18 prednisone 60 mg PO DAILY 5 Days #15 tab 08/31/18 Allergies Allergy/AdvReac Type Severity Reaction Status Date / Time hydromorphone [From Dilaudid] AdvReac Other (See Unverified 08/31/18 09:12 Comment) morphine AdvReac severe Unverified 08/30/18 17:39 vomiting General Stated Complaint: Abd Prob TERRI: 3 Review of Systems Constitutional Denies chills, Reports fatigue, Denies fever(s), Denies headache(s) and Denies weakness Eyes Denies change in vision and Denies eye pain ENT Denies otalgia, Denies facial pain, Denies headache(s), Denies neck pain and Denies sinus pain Cardiovascular Denies chest pain, Denies syncope, Denies pedal edema, Denies irregular heart rhythm and Denies dyspnea Respiratory Denies chest congestion, Denies cough and Denies dyspnea Gastrointestinal Reports abdominal pain, Denies hematochezia, Reports cramping, Reports diarrhea, Reports nausea, Reports vomiting and Denies hematemesis Genitourinary Denies hematuria, Denies difficulty urinating, Denies genital pain, Denies dysuria, Denies flank pain, Denies scrotal swelling and Denies testicular pain Musculoskeletal Denies back pain, Denies neck pain and Denies numbness Integumentary/Breasts Denies rash Neurologic Denies syncope, Denies headache(s), Denies numbness and Denies weakness Endocrine Reports fatigue PFSH Medical History Leukocytosis (leucocytosis) (Acute) Eosinophilia (Acute) Abdominal pain (Acute) Allergic rhinitis Asthma, moderate persistent Cervical spine disease Diabetes mellitus type II, non insulin dependent Fatty liver disease, nonalcoholic Hyperlipidemia Hypertension Obstructive sleep apnea Tobacco abuse Surgical History Excision, Pilonidal Cyst Social History Smoking/Tobacco Use Status: Current every day Exam Const General: acute distress and diaphoretic Orientation: alert and oriented x3 HENNC Head: normocephalic and atraumatic Mouth: moist mucous membranes Eyes Sclera: sclerae normal Neck Neck: normal visual inspection, trachea midline and supple Resp Effort & Inspection: normal respiratory effort Auscultation: clear to auscultation bilaterally Cardio Rate: tachycardic Rhythm: regular rhythm Heart Sounds: S1 normal and S2 normal GI Inspection: normal to inspection and non-distended Palpation: soft, not firm, no guarding and tender (mildly tender in the lower abdomen) Male General Exam: Yes normal external exam and No hernia Skin General skin exam: no rashes or lesions noted Neuro General: alert, oriented x3, no focal motor deficits and CN's II-XI intact bilaterally Extrem General: normal to inspection and no clubbing, cyanosis or edema Course Vital Signs Temperature 98.2 F 09/01/18 02:41 Pulse 120 H 09/01/18 02:41 Respiratory Rate 24 09/01/18 02:41 Blood Pressure 157/105 H 09/01/18 02:41 Pulse Oximetry 96 09/01/18 02:41 Temperature 98.2 F 09/01/18 02:41 Temperature Source Temporal Artery Scan 09/01/18 02:41 Pulse 120 H 09/01/18 02:41 Respiratory Rate 24 09/01/18 02:41 Respiratory Effort 09/01/18 02:41 Blood Pressure 157/105 H 09/01/18 02:41 Blood Pressure Position Sitting 09/01/18 02:41 Pulse Oximetry 96 09/01/18 02:41 Oxygen Delivery Method Room Air 09/01/18 02:41 Oxygen Flow Rate 0 09/01/18 02:41 Pain Level 10 09/01/18 02:58
[2018-09-01] MEDS: Normal Saline Flush 10 ML SYR IVP ×5 (03:05→23:38)
[2018-09-01] MEDS: fentaNYL 100 MCG/2 ML VIAL 50 MCG IVP ×8 (03:05→23:37)
[2018-09-01] MEDS: Ondansetron 4 MG/2 ML VIAL IVP ×4 (03:05→23:37)
[2018-09-01 03:06] LABS: Lactate 1.2 mmol/L (0.6-1.4)
[2018-09-01] MEDS: Lactated Ringers 1,000 ML 125 ML IV (03:06)
[2018-09-01 03:16] LABS: Abs Immature Grans 0.14 k/cumm (0.0-0.09); Absolute Basophil Count 0.03 k/cumm (0.0-0.2); Absolute Lymphocyte Count 2.71 k/cumm (1.2-3.4); Absolute Monocyte Count 1.68 k/cumm (0.11-0.7); Absolute Neutrophil Count 21.31 k/cumm (1.2-6.7); Basophils % 0.1; Eosinophils % 7.5; HCT 45.9 % (40.0-50.0); HGB 15.8 g/dL (13.5-17.5); Immature Grans % 0.5; Lymphocytes % 9.7; Mean Corp. HGB Concentration 34.4 g/dL (32.0-36.0); Mean Corpuscular Hemoglobin 29.2 pg (27.0-33.0); Mean Corpuscular Volume 84.7 fL (80-95); Mean Platelet Volume 10.3 fL (8.0-11.0); Neutrophils % 76.2; Platelet Count 359 x1000/uL (130-400); RBC 5.42 m/cumm (4.50-6.00); RBC Distribution Width 13.2 % (11.8-14.1)
[2018-09-01 03:18] LABS: White Blood Cell Count 27.96 k/cumm (4.4-10.8)
[2018-09-01 03:21] LABS: Lipase 110 U/L (73-393)
[2018-09-01 03:24] LABS: ALT 23 U/L (12-78); AST 6 U/L (15-37); Albumin 3.6 g/dL (3.4-5.0); Alkaline Phosphatase 101 U/L (46-116); Anion Gap 10.5 mmol/L (3-11); BUN 10 mg/dL (7-18); Bilirubin, Total 0.3 mg/dL (0.2-1.0); CO2 26.5 mmol/L (21.0-32.0); CREATININE 0.81 mg/dL (0.70-1.30); Calcium 9.2 mg/dL (8.5-10.1); Chloride 104 mmol/L (98-107); Glucose 127 mg/dL (70-100); Magnesium 1.8 mg/dL (1.8-2.4); Potassium 4.3 mmol/L (3.5-5.1); Sodium 141 mmol/L (136-145); Total Protein 7.6 g/dL (6.4-8.2)
[2018-09-01 03:29] LABS: RBC Morphology Normal
[2018-09-01] MEDS: Dicyclomine 20 MG TAB PO (03:31)
--- NOTE | 2018-09-01 04:00 | DI.CT_ITS ---
SYMPTOM/DIAGNOSIS: ABD PAIN, DIARRHEA ABDOMEN AND PELVIC CTA: CT angiography was performed with multi slice acquisition and multi planar and 3D reconstruction. Comparison is made with 08/30/18. The aorta and branch vessels appear intact. There is no evidence of significant atherosclerotic change. No ischemic findings are seen in the bowel. Numerous small mesenteric lymph nodes are again noted. The liver, gallbladder, spleen, pancreas, kidneys and adrenals are unremarkable. No free air or free fluid is seen. Increased density is again noted in the anterior abdominal wall, presumably related to injections. IMPRESSION: No acute abnormality. No evidence of vascular disease.
[2018-09-01] MEDS: Omnipaque 350 MG/ML 100 ML BTL IJ (04:04)
--- NOTE | 2018-09-01 04:29 | DI.VRAD_ITS ---
EXAM: CT Angiography Abdomen and Pelvis With Contrast EXAM DATE/TIME: 09/01/2018 3:01 AM CLINICAL HISTORY: 37 years old, male; Pain; Abdominal pain; Generalized; Patient HX: Severe abdominal pain out of proportion exam with neg CT 08/30. Mesenteric ischemia protocol requested by ; Additional info: Severe abdominal pain for days, liquid stools TECHNIQUE: Axial computed tomographic angiography images of the abdomen and pelvis with intravenous contrast material, including non-contrast images if performed. MIP and/or 3D reconstructed images were created and reviewed. All CT scans at this facility use at least one of these dose optimization techniques: automated exposure control; mA and/or kV adjustment per patient size (includes targeted exams where dose is matched to clinical indication); or iterative reconstruction. MIP reconstructed images were created and reviewed. CONTRAST: 76 ml of Omnipaque 350 administered intravenously. COMPARISON: CT Private^ROUTINE ABDOMEN PELVIS WITH CONTRAST (Adult) 08/30/2018 6:29 PM FINDINGS: VASCULATURE: Aorta: No aortic aneurysm. No aortic dissection. Celiac trunk and mesenteric arteries: No occlusion or significant stenosis. Renal arteries: No occlusion or significant stenosis. Right iliac arteries: No occlusion or significant stenosis. Right femoral/popliteal arteries: No occlusion or significant stenosis of the imaged proximal femoral artery. The popliteal artery was not imaged. Left iliac arteries: No occlusion or significant stenosis. Left femoral/popliteal arteries: No occlusion or significant stenosis of the imaged proximal femoral artery. The popliteal artery was not imaged. ABDOMEN: Liver: Hepatic steatosis. Gallbladder and bile ducts: Unremarkable. No calcified stones. No ductal dilation. Pancreas: Unremarkable. No mass. No ductal dilation. Spleen: Unremarkable. No splenomegaly. Adrenals: Unremarkable. No mass. Kidneys and ureters: Unremarkable. No solid mass. No hydronephrosis. Stomach and bowel: Unremarkable. No obstruction. No mucosal thickening. Appendix: No evidence of appendicitis. PELVIS: Bladder: Unremarkable. No mass. Reproductive: Unremarkable as visualized. ABDOMEN and PELVIS: Intraperitoneal space: Unremarkable. No free air. No significant fluid collection. Bones/joints: No acute fracture. No dislocation. Soft tissues: Unremarkable. Lymph nodes: Unremarkable. No enlarged lymph nodes. IMPRESSION: No acute finding. Dictated and Authenticated by: Kye Darby MD. Ordering:STAN Kennedy MD
--- NOTE | 2018-09-01 06:13 | W.PM.HP.N ---
Date of service: 09/01/18 Time of Service: 06:13 Assessment and Plan (1) Enterocolitis: Current visit: Yes Status: Acute Acute enterocolitis with substantial leukocytosis and mild eosinophilia. Main differential is infectious versus inflammatory. Pending results of stool studies will provide general supportive measures, IV fluids and prn analgesics and antiemetics. If diagnosis remains unclear will probably need colonoscopy. History of Present Illness Chief Complaint: diarrhea Narrative: Patient is a 37-year-old male with diabetes who is here with 3 days of voluminous watery diarrhea associated with crampy lower abdominal pain. There has also been some nausea and vomiting but this seems to have abated. He was seen 1 day prior to admission evaluation at that time of note for leukocytosis and negative CT scan. C. difficile screen is negative, remainder of stool studies are pending. Patient was prescribed empiric dose of albendazole but has not taken. There have been no new medications recently, no travel and no change in water source, which in any case is from a drilled well. Patient was also started on Prednisone, again without effect. Review of Systems Review of Systems All systems reviewed & are unremarkable except as noted in HPI and below PFSH Medical History Leukocytosis (leucocytosis) (Acute) Eosinophilia (Acute) Abdominal pain (Acute) Allergic rhinitis Asthma, moderate persistent Cervical spine disease Diabetes mellitus type II, non insulin dependent Fatty liver disease, nonalcoholic Hyperlipidemia Hypertension Obstructive sleep apnea Tobacco abuse Surgical History Excision, Pilonidal Cyst Social History Smoking/Tobacco Use Status: Current every day Meds Home Medications Medication Instructions Recorded Confirmed Type montelukast 10 mg PO DAILY 11/25/12 09/01/18 History omeprazole magnesium [PriLOSEC Otc] 20 mg PO DAILY 11/25/12 09/01/18 History loratadine 1 tab PO DAILY 12/04/13 09/01/18 History metformin 1,000 mg PO DAILY tab-cap 01/16/18 09/01/18 History lisinopril 20 mg PO DAILY tab-cap 01/30/18 09/01/18 History mometasone [Nasonex] 2 spry NS DAILY spray 01/30/18 09/01/18 History acetaminophen [Mapap Extra 1,000 mg PO Q6H 5 Days #60 tab 08/30/18 09/01/18 Rx Strength] ibuprofen [Motrin Ib] 600 mg PO Q6H 5 Days #60 tab 08/30/18 09/01/18 Rx ondansetron HCl [Zofran] 4 mg PO TID PRN #10 tab 08/30/18 09/01/18 Rx albendazole 400 mg PO BID 5 Days #20 tab 08/31/18 09/01/18 Rx exenatide microspheres [Bydureon] See Rx Instructions .ROUTE .COMPLEX 08/31/18 09/01/18 History prednisone 60 mg PO DAILY 5 Days #15 tab 08/31/18 09/01/18 Rx Allergies Allergy/AdvReac Type Severity Reaction Status Date / Time hydromorphone [From Dilaudid] AdvReac Other (See Unverified 08/31/18 09:12 Comment) morphine AdvReac severe Unverified 08/30/18 17:39 vomiting Exam Narrative Exam Narrative: Blood pressure 157/105 pulse 120 respirations 24 O2 sat 96% temp 36.8. HEENT unremarkable, neck supple, lungs clear heart tachycardic and regular, abdomen positive bowel sounds soft mild bilateral lower quadrant tenderness with, without rebound. and rectal exams deferred. Extremities without edema. Neurological patient alert and oriented exam is nonfocal Results Labs : 09/01/18 02:55 09/01/18 02:55 Laboratory Results - last 24 hr 09/01/18 09/01/18 09/01/18 02:55 02:55 02:55 WBC 27.96 H* RBC 5.42 Hgb 15.8 Hct 45.9 MCV 84.7 MCH 29.2 MCHC 34.4 RDW 13.2 Plt Count 359 MPV 10.3 Immature Gran % 0.5 Neutrophils % 76.2 Lymphocytes % 9.7 Monocytes % 6.0 Eosinophils % 7.5 Basophils % 0.1 Absolute Neutrophils 21.31 H Absolute Lymphocytes 2.71 Absolute Monocytes 1.68 H Absolute Eosinophils 2.10 H Absolute Basophils 0.03 Differential Comment RBC Morphology Normal Sodium 141 Potassium 4.3 Chloride 104 Carbon Dioxide 26.5 Anion Gap 10.5 BUN 10 D Creatinine 0.81 Estimated GFR/1.73 m2 >= 60.00 Glucose 127 H Lactate 1.2 Calcium 9.2 Magnesium 1.8 Total Bilirubin 0.3 AST 6 L ALT 23 Alkaline Phosphatase 101 Total Protein 7.6 Albumin 3.6 Lipase 110 Last Vital Signs Temp 36.8 C 09/01/18 02:41 Pulse 120 H 09/01/18 02:41 Resp 24 09/01/18 02:41 BP 157/105 H 09/01/18 02:41 Pulse Ox 96 09/01/18 02:41
[2018-09-01] MEDS: Lisinopril 20 MG TAB PO (07:52)
[2018-09-01] MEDS: Loratidine 10 MG TAB PO (07:52)
[2018-09-01] MEDS: Montelukast 10 MG TAB PO (07:52)
[2018-09-01] MEDS: Lactated Ringers 1,000 ML 150 ML IV ×3 (07:54→23:36)
[2018-09-01 12:00] VITALS: BP 115/65; PULSE 86; RESP 18; TEMP 36.8; O2SAT 96
--- NOTE | 2018-09-01 14:12 | DSU.FORM ---
Sarabjit was in bed when I visited. He was still feeling uncomfortable. He was in the ED three times in the past few days and said he is wiped out from being nauseated, having diarrhea and feeling uncomfortable all over. His was with him, but left to help get kids to school and get some rest herself. I'll check in with Sarabjit again.
--- NOTE | 2018-09-01 14:37 | PDOC.CMIN ---
- If Service Date Differs Date of service: 09/01/18 Time of Service: 14:37 Care Management Initial Assess REASON FOR HOSPITALIZATION:: Abdominal pain PAST MEDICAL HISTORY/PAST SURGICAL HISTORY:: Allergic rhinitis, asthma, cervical spine disease, type 2 diabetes, fatty liver disease, hyperlipidemia, hypertension, leukocytosis, obstructive sleep apnea, tobacco abuse PREVIOUS FUNCTIONAL STATUS/SOCIAL/FAMILY SUPPORTS:: Sarabjit lives in [facility] with his and 2 children. 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 He is independent with ADLs and transportation he identifies his Carolyn as his main support. CURRENT FUNCTIONAL STATUS:: Sarabjit is lying in bed he is complaining of intense nausea and abdominal pain. He has a follow-up scheduled with surgical on Thursday anticipate he will have a surgical consult while inpatient. Sarabjit reports that he is been having abdominal pain and nausea since Thursday. Sarabjit has had 3 ED visits this week all related to severe abdominal pain and nausea. ADVANCE DIRECTIVES:: None on file declines to complete at this time. Has patient been provided with information about the portal?: Yes Did the patient sign up for the portal?: Yes CODE STATUS:: Full Code INSURANCE COVERAGE / FINANCIAL ISSUES:: [facility] CURRENT HOME/COMMUNITY SERVICES/EQUIPMENT:: None at this time. PRIMARY CARE PHYSICIAN:: POTENTIAL DISCHARGE NEEDS:: Follow-up appointment with primary care provider scheduled prior to discharge. PATIENT/FAMILY EDUCATION NEEDS:: Discharge education, limitations, follow-up plan of care, medications and ask me 3. ANTICIPATED BARRIERS TO DISCHARGE:: None identified at this time TRANSPORTATION:: Via private car with spouse at time of discharge. PLAN:: Sarabjit is currently receiving IV fluids, IV pain control, and antiemetics. He continues to have abdominal pain and nausea, he has been unable to tolerate solid food per his report. Anticipate no services at time of discharge. CM to continue to provide support discharge planning.
--- NOTE | 2018-09-01 14:48 | INITIAL_ITS ---
- If Service Date Differs Date of service: 09/01/18 Time of Service: 14:37 Care Management Initial Assess REASON FOR HOSPITALIZATION:: Abdominal pain PAST MEDICAL HISTORY/PAST SURGICAL HISTORY:: Allergic rhinitis, asthma, cervical spine disease, type 2 diabetes, fatty liver disease, hyperlipidemia, hypertension, leukocytosis, obstructive sleep apnea, tobacco abuse PREVIOUS FUNCTIONAL STATUS/SOCIAL/FAMILY SUPPORTS:: Sarabjit lives in [facility] with his and 2 children. 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 He is independent with ADLs and transportation he identifies his Carolyn as his main support. CURRENT FUNCTIONAL STATUS:: Sarabjit is lying in bed he is complaining of intense nausea and abdominal pain. He has a follow-up scheduled with surgical on Thursday anticipate he will have a surgical consult while inpatient. Sarabjit reports that he is been having abdominal pain and nausea since Thursday. Sarabjit has had 3 ED visits this week all related to severe abdominal pain and nausea. ADVANCE DIRECTIVES:: None on file declines to complete at this time. Has patient been provided with information about the portal?: Yes Did the patient sign up for the portal?: Yes CODE STATUS:: Full Code INSURANCE COVERAGE / FINANCIAL ISSUES:: [facility] CURRENT HOME/COMMUNITY SERVICES/EQUIPMENT:: None at this time. PRIMARY CARE PHYSICIAN:: POTENTIAL DISCHARGE NEEDS:: Follow-up appointment with primary care provider scheduled prior to discharge. PATIENT/FAMILY EDUCATION NEEDS:: Discharge education, limitations, follow-up plan of care, medications and ask me 3. ANTICIPATED BARRIERS TO DISCHARGE:: None identified at this time TRANSPORTATION:: Via private car with spouse at time of discharge. PLAN:: Sarabjit is currently receiving IV fluids, IV pain control, and antiemetics. He continues to have abdominal pain and nausea, he has been unable to tolerate solid food per his report. Anticipate no services at time of discharge. CM to continue to provide support discharge planning.
[2018-09-01 21:17] VITALS: BP 115/68; PULSE 82; RESP 18; TEMP 36.3; O2SAT 95
[2018-09-02 00:43] VITALS: BP 104/61; PULSE 75; RESP 16; TEMP 36.4; O2SAT 96
[2018-09-02] MEDS: fentaNYL 100 MCG/2 ML VIAL 50 MCG IVP ×8 (01:43→23:54)
[2018-09-02] MEDS: Normal Saline Flush 10 ML SYR IVP ×6 (01:44→19:44)
[2018-09-02] MEDS: Ondansetron 4 MG/2 ML VIAL IVP ×2 (05:32→21:36)
[2018-09-02] MEDS: Lactated Ringers 1,000 ML 150 ML IV ×3 (06:08→19:47)
[2018-09-02 07:01] LABS: Abs Immature Grans 0.07 k/cumm (0.0-0.09); Absolute Basophil Count 0.03 k/cumm (0.0-0.2); Absolute Eosinophil Count 1.83 k/cumm (0.0-0.7); Absolute Lymphocyte Count 2.77 k/cumm (1.2-3.4); Absolute Monocyte Count 1.13 k/cumm (0.11-0.7); Absolute Neutrophil Count 7.64 k/cumm (1.2-6.7); Basophils % 0.2; Eosinophils % 13.6; HCT 42.1 % (40.0-50.0); HGB 14.2 g/dL (13.5-17.5); Immature Grans % 0.5; Lymphocytes % 20.6; Mean Corp. HGB Concentration 33.7 g/dL (32.0-36.0); Mean Corpuscular Hemoglobin 29.3 pg (27.0-33.0); Mean Corpuscular Volume 86.8 fL (80-95); Monocytes % 8.4; Neutrophils % 56.7; Platelet Count 265 x1000/uL (130-400); RBC 4.85 m/cumm (4.50-6.00); RBC Distribution Width 13.7 % (11.8-14.1); White Blood Cell Count 13.47 k/cumm (4.4-10.8)
[2018-09-02 07:14] LABS: Magnesium 1.7 mg/dL (1.8-2.4)
[2018-09-02 07:18] LABS: ALT 22 U/L (12-78); AST 7 U/L (15-37); Alkaline Phosphatase 81 U/L (46-116); Anion Gap 9.1 mmol/L (3-11); BUN 11 mg/dL (7-18); Bilirubin, Total 0.3 mg/dL (0.2-1.0); CO2 25.9 mmol/L (21.0-32.0); CREATININE 1.03 mg/dL (0.70-1.30); Calcium 8.6 mg/dL (8.5-10.1); Chloride 106 mmol/L (98-107); Glucose 86 mg/dL (70-100); Potassium 3.7 mmol/L (3.5-5.1); Sodium 141 mmol/L (136-145); Total Protein 6.2 g/dL (6.4-8.2)
[2018-09-02 07:58] VITALS: BP 123/69; PULSE 70; RESP 20; TEMP 37.1; O2SAT 97
[2018-09-02] MEDS: Loratidine 10 MG TAB PO (08:34)
[2018-09-02] MEDS: Lisinopril 20 MG TAB PO (08:34)
[2018-09-02] MEDS: Montelukast 10 MG TAB PO (08:34)
[2018-09-02 09:00] VITALS: O2SAT 97
--- NOTE | 2018-09-02 10:30 | PHARADMIT ---
Admission Pharmacy Clinical Review DIARRHEA Code Status Full Code Current Weight Wgt-90.2 kg Renally Cleared and Narrow Therapeutic Index Meds CrCl~ 91 mL/min Meds-OK QTc Value / Action Taken QTc-414 NA BP Control, Fever BP-123/69 Tmax- 37.1C Electrolytes reviewed Na- 141 K+3.7 Mag-1.7 DVT Prophylaxis Lovenox Opiate Usage / Scheduled Bowel Regimen Ordered Yes No Plt/SCr for Heparin / Enoxaparin Plts-265 SCr-1.03 INR for Warfarin na H/H stable, WBC/Bands H&H- 14.2/42.1 WBC- 13.47 Antibiotic appropriateness none Cultures and Sensitivities Lactoferin, Surgical ABX d/c within 24 hr NA DM control / Insulin Dosing BG- 86, Aspart Heart Failure (Check EF%) (DONNY's, B-Block, Diuretics) Lisinopril, IV to PO Switch No Home Meds Reviewed Yes Home Meds Not Ordered Bydureon, Ibuprofen, Metformin, Nasonex, Prednisone, Comments
[2018-09-02] MEDS: Magnesium Oxide 400 MG TAB 800 MG PO (10:32)
[2018-09-02] MEDS: POTASSIUM CHLORIDE 20 MEQ, POTASSIUM CHLORIDE 10 MEQ 30 MEQ PO (10:32)
--- NOTE | 2018-09-02 13:40 | PDOC.CMPRO ---
- If Service Date Differs Date of service: 09/02/18 Time of Service: 13:40 Care Management Progress Note S/O: Sarabjit continues to receive supportive care including pain management and IV fluids. His WBC is trending down. His spouse is here and supportive. Sarabjit remains observation at this time anticipate no change in status. A: Sarabjit is a 37 year old male admitted with abdominal pain and elevated WBC P:Sarabjit is currently receiving IV fluids, IV pain control, and antiemetic's for abdominal pain and nausea. Anticipate no services at time of discharge. CM to continue to provide support discharge planning.
[2018-09-02] MEDS: Enoxaparin 40 MG/0.4 ML SYR SC (14:00)
--- NOTE | 2018-09-02 16:18 | PGE_ITS ---
Date of Service Date of service: 09/02/18 Time of Service: 16:12 Assessment and Plan (1) Diarrhea: Current visit: Yes Status: Acute Evidence of profuse watery diarrhea, with concurrent nausea and vomiting - unremitting and persistent. Patient with normal imaging via CT and benign exam. He is also hungry and requesting food. Currently with C.Diff and stool cultures negative. Fecal Leukocytes are still pending. Also with mildly elevated eosinophils. Initially held Metformin, Exanatide, and PPI, while providing supportive care with IVFs, anti-emetics, and pain control. Leukocytosis vastly improved this morning, but with continued symptoms. Will await results of fecal WBCs prior to contacting GI - consider IBD, Celiac as part of the differential, along with potential Rheumatologic process, neoplastic, endocrinologic, or fungal infectious process. Fecal O&P also ordered and pending at this time. Maintain on Gluten Free Diet. (2) Eosinophilia: Current visit: No Status: Acute As above. (3) GERD (gastroesophageal reflux disease): Current visit: Yes Status: Chronic Holding PPI. Initiate Ranitidine. (4) Hypertension: Current visit: Yes Status: Chronic Continue DONNY-I (5) Diabetes mellitus: Current visit: Yes Status: Chronic Holding metformin and Exanatide. Maintain on ISS. (6) PREM (obstructive sleep apnea): Current visit: Yes Status: Chronic (7) Dyslipidemia: Current visit: Yes Status: Chronic (8) Fatty liver: Current visit: Yes Status: Chronic (9) DVT prophylaxis: Current visit: Yes Status: Acute SC Lovenox. Subjective Interval history since last seen: 37 year old man with prior history of DM admi tted from [facility] Emergency Department on 09/01 with Abdominal Pain, diarrhea, leukocytosis with Eosinophilia. Mr. Valdez has a prior history of DM, on Metformin and Exanatide. He also suffers from obesity, fatty liver, HTN, Dyslipidemia, and PREM. Mr. Mccullough presented to the ED with a 3 day history of profuse watery diarrhea, abdominal cramping, nausea, and vomiting. He was seen for 3 consecutive days in the emergency department, noted to have a benign abdominal exam but with worsening leukocytosis, negative C.Diff, and stool cultures that came back today negative for Shiga, Salmonella, and Campylobacter. He has been tried on Prednisone without effect. A repeat CT was obtained showing no acute abnormality. Blood work was significant for a WBC that had risen from 21 to 27.96, with 2.1 Absolut e Eosinophils (normal 0-0.7). The patient was referred for admission. This morning the patient reports no improvement in his symptoms. His white count has improved significantly to 13.47, with 1.83 absolute Eos. No overnight events reported. He remains afebrile. Exam Narrative Exam Narrative: General: Patient appears comfortable, AAOX3, NAD Neck: Supple CV: Regular, nontachycardic, S1S2, No rubs, murmurs, or gallops. Pulmonary: Clear to auscultation bilaterally, no crackles, wheezing, or rhonchi Abdomen: + Bowel Sounds, soft, Minimally diffusely tender, nondistended Vascular: No lower extremity edema Psych: Normal mood and affect. Objective Objective Clinical Data: Abnormal lab results 09/02/18 09/02/18 09/02/18 Range/Units 06:37 06:37 06:37 WBC 13.47 H D (4.4-10.8) k/cumm Absolute Neutrophils 7.64 H (1.2-6.7) k/cumm Absolute Monocytes 1.13 H (0.11-0.7) k/cumm Absolute Eosinophils 1.83 H (0.0-0.7) k/cumm Magnesium 1.7 L (1.8-2.4) mg/dL AST 7 L (15-37) U/L Total Protein 6.2 L (6.4-8.2) g/dL Albumin 3.0 L (3.4-5.0) g/dL Vital Signs Temperature 37.1 C 09/02/18 07:58 Temperature Source Tympanic 09/02/18 07:58 Pulse 70 09/02/18 07:58 Pulse Rhythm Regular 09/02/18 15:12 Respiratory Rate 20 09/02/18 07:58 Respiratory Effort Non-Labored 09/02/18 15:12 Respiratory Depth Normal 09/02/18 15:12 Respiratory Pattern Normal 09/02/18 15:12 Blood Pressure 123/69 09/02/18 07:58 Blood Pressure Position Sitting 09/01/18 02:41 Pulse Oximetry 97 09/02/18 09:00 Oxygen Delivery Method Room Air 09/02/18 09:00 Oxygen Flow Rate 0 09/02/18 09:00 Pain Level 7 09/02/18 12:14 Intake & Output 09/01/18 09/02/18 09/02/18 23:59 11:59 23:59 Intake Total 4571 / 4621.5 1031 / 2532 1501 / 2532 Output Total 500 / 500 2200 / 2200 Balance 4071 / 4121.5 -1169 / 332 1501 / 332 Weight 90.265 kg Intake: IV 3011 / 3061.5 1031 / 2082 1051 / 2082 Oral 1560 / 1560 450 / 450 Output: Urine 400 / 400 Stool 500 / 500 1200 / 1200 Emesis 600 / 600 Other: Urine Color Yellow Urine Appearance Clear Urine Odor Normal Comment pt voiding independently in the bathroom Stool Size Large Large Stool Characteristics Soft Liquid Liquid Brown Black Emesis Description Retching Undigested Food Voiding Methods Toilet Toilet Laboratory Results WBC 13.47 k/cumm (4.4-10.8) H D 09/02/18 06:37 RBC 4.85 m/cumm (4.50-6.00) 09/02/18 06:37 Hgb 14.2 g/dL (13.5-17.5) 09/02/18 06:37 Hct 42.1 % (40.0-50.0) 09/02/18 06:37 MCV 86.8 fL (80-95) 09/02/18 06:37 MCH 29.3 pg (27.0-33.0) 09/02/18 06:37 MCHC 33.7 g/dL (32.0-36.0) 09/02/18 06:37 RDW 13.7 % (11.8-14.1) 09/02/18 06:37 Plt Count 265 x1000/uL (130-400) 09/02/18 06:37 MPV 10.0 fL (8.0-11.0) 09/02/18 06:37 Immature Gran % 0.5 09/02/18 06:37 Neutrophils % 56.7 09/02/18 06:37 Lymphocytes % 20.6 09/02/18 06:37 Monocytes % 8.4 09/02/18 06:37 Eosinophils % 13.6 09/02/18 06:37 Basophils % 0.2 09/02/18 06:37 Absolute Neutrophils 7.64 k/cumm (1.2-6.7) H 09/02/18 06:37 Absolute Lymphocytes 2.77 k/cumm (1.2-3.4) 09/02/18 06:37 Absolute Monocytes 1.13 k/cumm (0.11-0.7) H 09/02/18 06:37 Absolute Eosinophils 1.83 k/cumm (0.0-0.7) H 09/02/18 06:37 Absolute Basophils 0.03 k/cumm (0.0-0.2) 09/02/18 06:37 Differential Comment 09/01/18 02:55 RBC Morphology Normal 09/01/18 02:55 Sodium 141 mmol/L (136-145) 09/02/18 06:37 Potassium 3.7 mmol/L (3.5-5.1) 09/02/18 06:37 Chloride 106 mmol/L (98-107) 09/02/18 06:37 Carbon Dioxide 25.9 mmol/L (21.0-32.0) 09/02/18 06:37 Anion Gap 9.1 mmol/L (3-11) 09/02/18 06:37 BUN 11 mg/dL (7-18) 09/02/18 06:37 Creatinine 1.03 mg/dL (0.70-1.30) 09/02/18 06:37 Estimated GFR/1.73 m2 >= 60.00 (mL/min/1.73m2) 09/02/18 06:37 Glucose 86 mg/dL (70-100) 09/02/18 06:37 Lactate 1.2 mmol/L (0.6-1.4) 09/01/18 02:55 Calcium 8.6 mg/dL (8.5-10.1) 09/02/18 06:37 Magnesium 1.7 mg/dL (1.8-2.4) L 09/02/18 06:37 Total Bilirubin 0.3 mg/dL (0.2-1.0) 09/02/18 06:37 AST 7 U/L (15-37) L 09/02/18 06:37 ALT 22 U/L (12-78) 09/02/18 06:37 Alkaline Phosphatase 81 U/L (46-116) 09/02/18 06:37 Total Protein 6.2 g/dL (6.4-8.2) L 09/02/18 06:37 Albumin 3.0 g/dL (3.4-5.0) L 09/02/18 06:37 Lipase 110 U/L (73-393) 09/01/18 02:55
[2018-09-02 17:03] VITALS: BP 117/77; PULSE 86; RESP 19; TEMP 36.6; O2SAT 92
[2018-09-02 23:57] VITALS: BP 127/86; PULSE 80; RESP 20; TEMP 36.7; O2SAT 98
[2018-09-03] MEDS: Acetaminophen 325 MG TAB 650 MG PO ×3 (01:10→15:15)
[2018-09-03] MEDS: ACETAMINOPHEN 1,000 MG/100 ML BTL 400 MG IVPB (01:10)
--- NOTE | 2018-09-03 02:14 | PGE_ITS ---
Date of Service Date of service: 09/03/18 Time of Service: 02:10 Assessment and Plan (1) Abdominal pain: Current visit: No Status: Acute Exacerbation of abdominal pain?reassuring exam with absence of tachycardia, change in blood pressure, fever and minimal tenderness in the lower quadrants. I do not think this represents perforation or an acute surgical abdomen and I do not think imaging studies are necessary at this time. Etiology of his pain exacerbation this evening suspected to be related to food intake given the timing of exacerbation of pain and now improvement after bowel movements and parenteral analgesics/opiates. Etiology for his diarrhea has yet to be identified. Infectious etiology is becoming less likely as the test results are returning negative. At this point I am not initiating any additional diagnostic studies. He has CBC and CMP ordered for the morning. Therapeutically can continue fentanyl at current dose and frequency and I am adding oral acetaminophen given that he is not vomiting. 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 I am putting his diet back to full liquids. Subjective Interval history since last seen: Called to see patient because of 10/10 crampy to burning mainly lower abdominal pain. Inpatient and outpatient medical records reviewed. Patient reports that throughout the day, on full liquid diet, pain control adequate with episodic dosing of fentanyl (MAR review indicates getting 50 mcg doses of fentanyl about every 4 hours to the daytime). Had a regular meal for dinner and about 3 hours later began having increasing abdominal gurgling and sense of distention which over the past 3 days has been prelude to nausea and vomiting. He did not develop nausea and vomiting but did have increasing lower abdominal pain not responsive to fentanyl IV. At that point I was called, ordered thousand milligrams of acetaminophen IV pending my arrival for evaluation. In the interval from when he had acetaminophen he had another bowel movement?watery, green, heme-negative. Since then his pain has been decreasing and at the time of my evaluation he reported at 7/10. Again denies nausea. No chest pain, no trouble breathing. Exam Narrative Exam Narrative: He remains afebrile, is not tachycardic and there is been no increase or decrease in his blood pressure. Blood sugars have been consistently in the 80s. He does not appear to be in any distress at the present time lying in bed. Sclera nonicteric. Regular heart rhythm with no murmur S3 or S4. Abdomen with increased bowel sounds diffusely. He has no tenderness in the upper quadrants, some mild tenderness to firm palpation in the right lower quadrant without rebound, minimal tenderness left lower quadrant without guarding or rebound. Extremities well perfused normal pulses. Objective Objective Clinical Data: Abnormal lab results 09/02/18 09/02/18 09/02/18 Range/Units 06:37 06:37 06:37 WBC 13.47 H D (4.4-10.8) k/cumm Absolute Neutrophils 7.64 H (1.2-6.7) k/cumm Absolute Monocytes 1.13 H (0.11-0.7) k/cumm Absolute Eosinophils 1.83 H (0.0-0.7) k/cumm Magnesium 1.7 L (1.8-2.4) mg/dL AST 7 L (15-37) U/L Total Protein 6.2 L (6.4-8.2) g/dL Albumin 3.0 L (3.4-5.0) g/dL Vital Signs Temperature 36.7 C 09/02/18 23:57 Temperature Source Tympanic 09/02/18 23:57 Pulse 80 09/02/18 23:57 Pulse Rhythm Regular 09/02/18 19:50 Respiratory Rate 20 09/02/18 23:57 Respiratory Effort Non-Labored 09/02/18 19:50 Respiratory Depth Normal 09/02/18 19:50 Respiratory Pattern Normal 09/02/18 19:50 Blood Pressure 127/86 09/02/18 23:57 Blood Pressure Position Sitting 09/01/18 02:41 Pulse Oximetry 98 09/02/18 23:57 Oxygen Delivery Method Room Air 09/02/18 23:57 Oxygen Flow Rate 0 09/02/18 23:57 Pain Level 10 09/03/18 00:54 Intake & Output 09/02/18 09/02/18 09/03/18 11:59 23:59 11:59 Intake Total 1031 / 4262 3231 / 4262 Output Total 220 / 2200 Balance -1168 / 2061 Intake: IV 1031 / 3122 1 / 3122 Oral 1140 / 1140 Output: Urine 400 / 400 Stool 1200 / 1200 Emesis 600 / 600 Other: Urine Color Yellow Yellow Urine Appearance Clear Clear Urine Odor Normal Normal Comment No hat. Pt voiding independently. Denies sx. Stool Size Large Small Stool Characteristics Liquid Liquid Brown Brown Black Emesis Description Retching Undigested Food Voiding Methods Toilet Toilet Laboratory Results WBC 13.47 k/cumm (4.4-10.8) H D 09/02/18 06:37 RBC 4.85 m/cumm (4.50-6.00) 09/02/18 06:37 Hgb 14.2 g/dL (13.5-17.5) 09/02/18 06:37 Hct 42.1 % (40.0-50.0) 09/02/18 06:37 MCV 86.8 fL (80-95) 09/02/18 06:37 MCH 29.3 pg (27.0-33.0) 09/02/18 06:37 MCHC 33.7 g/dL (32.0-36.0) 09/02/18 06:37 RDW 13.7 % (11.8-14.1) 09/02/18 06:37 Plt Count 265 x1000/uL (130-400) 09/02/18 06:37 MPV 10.0 fL (8.0-11.0) 09/02/18 06:37 Immature Gran % 0.5 09/02/18 06:37 Neutrophils % 56.7 09/02/18 06:37 Lymphocytes % 20.6 09/02/18 06:37 Monocytes % 8.4 09/02/18 06:37 Eosinophils % 13.6 09/02/18 06:37 Basophils % 0.2 09/02/18 06:37 Absolute Neutrophils 7.64 k/cumm (1.2-6.7) H 09/02/18 06:37 Absolute Lymphocytes 2.77 k/cumm (1.2-3.4) 09/02/18 06:37 Absolute Monocytes 1.13 k/cumm (0.11-0.7) H 09/02/18 06:37 Absolute Eosinophils 1.83 k/cumm (0.0-0.7) H 09/02/18 06:37 Absolute Basophils 0.03 k/cumm (0.0-0.2) 09/02/18 06:37 Differential Comment 09/01/18 02:55 RBC Morphology Normal 09/01/18 02:55 Sodium 141 mmol/L (136-145) 09/02/18 06:37 Potassium 3.7 mmol/L (3.5-5.1) 09/02/18 06:37 Chloride 106 mmol/L (98-107) 09/02/18 06:37 Carbon Dioxide 25.9 mmol/L (21.0-32.0) 09/02/18 06:37 Anion Gap 9.1 mmol/L (3-11) 09/02/18 06:37 BUN 11 mg/dL (7-18) 09/02/18 06:37 Creatinine 1.03 mg/dL (0.70-1.30) 09/02/18 06:37 Estimated GFR/1.73 m2 >= 60.00 (mL/min/1.73m2) 09/02/18 06:37 Glucose 86 mg/dL (70-100) 09/02/18 06:37 Lactate 1.2 mmol/L (0.6-1.4) 09/01/18 02:55 Calcium 8.6 mg/dL (8.5-10.1) 09/02/18 06:37 Magnesium 1.7 mg/dL (1.8-2.4) L 09/02/18 06:37 Total Bilirubin 0.3 mg/dL (0.2-1.0) 09/02/18 06:37 AST 7 U/L (15-37) L 09/02/18 06:37 ALT 22 U/L (12-78) 09/02/18 06:37 Alkaline Phosphatase 81 U/L (46-116) 09/02/18 06:37 Total Protein 6.2 g/dL (6.4-8.2) L 09/02/18 06:37 Albumin 3.0 g/dL (3.4-5.0) L 09/02/18 06:37 Lipase 110 U/L (73-393) 09/01/18 02:55 Reports from the imaging studies from ER visits (CT scans) reviewed
[2018-09-03] MEDS: fentaNYL 100 MCG/2 ML VIAL 50 MCG IVP ×5 (02:51→19:42)
[2018-09-03] MEDS: Lactated Ringers 1,000 ML 150 ML IV ×3 (02:52→18:49)
[2018-09-03] MEDS: Ondansetron 4 MG/2 ML VIAL IVP ×4 (04:53→22:58)
--- NOTE | 2018-09-03 05:00 | NUR.NOTE ---
Nursing Note: Pt called to alert staff that he has had an accident in the bathroom and reports that he does not feel right and something is really wrong. I found brown waterlike diarrhea covering half of his bathroom floor, and diarrhea in toilet. I can audibly hear pt's bowel sounds constantly standing next to him. He states the same pain is still in lower abdomen but now he has a severe unmanageable burning pain in his entire abdomen. He is nauseous and dry heaving sitting at side of his bed. He does not feel comfortable in any position. I administered another dose of Zofran, see mar for meds this shift. BG checked and 73. Housekeeping called to clean bathroom. Pt's pajama bottoms soaked in diarrhea have been put in trashbag in room, pt made aware. Charge nurse notified.
--- NOTE | 2018-09-03 07:03 | NUR.NOTE ---
Nursing Note: pt received IV tylenol (T.O. administered before order put into computer) at 0110 as per order and charting. There is an erroneously charted po tylenol administration for the same time that was not given; wrong order chosen to chart after orders were put in when MD arrived. Unable to undo po administration in OCT.
[2018-09-03 07:30] LABS: Abs Immature Grans 0.17 k/cumm (0.0-0.09); Absolute Basophil Count 0.03 k/cumm (0.0-0.2); Absolute Lymphocyte Count 2.82 k/cumm (1.2-3.4); Absolute Monocyte Count 1.11 k/cumm (0.11-0.7); Basophils % 0.2; Eosinophils % 13.8; HCT 43.1 % (40.0-50.0); HGB 14.5 g/dL (13.5-17.5); Lymphocytes % 16.8; Mean Corp. HGB Concentration 33.6 g/dL (32.0-36.0); Mean Corpuscular Hemoglobin 28.8 pg (27.0-33.0); Mean Corpuscular Volume 85.7 fL (80-95); Mean Platelet Volume 10.3 fL (8.0-11.0); Monocytes % 6.6; Neutrophils % 61.6; Platelet Count 263 x1000/uL (130-400); RBC 5.03 m/cumm (4.50-6.00); RBC Distribution Width 13.4 % (11.8-14.1)
[2018-09-03 07:35] VITALS: BP 114/75; PULSE 85; RESP 18; TEMP 37.1; O2SAT 97
[2018-09-03 07:38] LABS: Absolute Eosinophil Count 2.32 k/cumm (0.0-0.7); Absolute Neutrophil Count 10.35 k/cumm (1.2-6.7)
[2018-09-03 07:46] LABS: ALT 23 U/L (12-78); AST 9 U/L (15-37); Alkaline Phosphatase 81 U/L (46-116); Anion Gap 7.5 mmol/L (3-11); BUN 9 mg/dL (7-18); Bilirubin, Total 0.3 mg/dL (0.2-1.0); CO2 29.5 mmol/L (21.0-32.0); CREATININE 0.96 mg/dL (0.70-1.30); Calcium 8.9 mg/dL (8.5-10.1); Chloride 104 mmol/L (98-107); Glucose 82 mg/dL (70-100); Potassium 3.5 mmol/L (3.5-5.1); Sodium 141 mmol/L (136-145); Total Protein 6.2 g/dL (6.4-8.2)
[2018-09-03 07:56] LABS: Magnesium 1.8 mg/dL (1.8-2.4)
[2018-09-03 08:21] LABS: ESR 9 MM/HR (0-15)
[2018-09-03] MEDS: Normal Saline Flush 10 ML SYR IVP ×6 (08:54→19:42)
[2018-09-03] MEDS: Lisinopril 20 MG TAB PO (08:57)
[2018-09-03] MEDS: Montelukast 10 MG TAB PO (08:57)
[2018-09-03] MEDS: Loratidine 10 MG TAB PO (08:57)
[2018-09-03] MEDS: Magnesium Oxide 400 MG TAB PO (10:14)
[2018-09-03] MEDS: CIPROFLOXACIN 400 MG/200 ML BAG 200 MG IVPB ×2 (10:14→21:20)
[2018-09-03] MEDS: Pantoprazole 40 MG VIAL IVP (10:15)
[2018-09-03] MEDS: Potassium Chloride 20 MEQ TABCR 40 MEQ PO (10:15)
--- NOTE | 2018-09-03 11:18 | PDOC.CMPRO ---
- If Service Date Differs Date of service: 09/03/18 Time of Service: 11:18 Care Management Progress Note S/O: Sarabjit continues to receive supportive care, pain management and fluids. He will be started on IV antibiotics today his WBC is trending up. Sarabjit and his spouse are present during assessment. Sarabjit and his spouse describe concerns about patient having medication on his list that he has an allergy to. CM listen to patient and spouse concerns and validated their feelings. CM followed up with CCRN and she will follow up with pharmacy and provider to resolve discrepancy. A: Sarabjit is a 37 year old male admitted with abdominal pain and elevated WBC P:Sarabjit is currently receiving IV fluids, IV pain control, and antiemetic's for abdominal pain and nausea. He is now on IV antibiotics. Anticipate no services at time of discharge. CM to continue to provide support discharge planning.
[2018-09-03] MEDS: MetroNIDAZOLE 500 MG/100 ML BAG 100 MG IVPB ×2 (11:52→19:44)
[2018-09-03 12:00] VITALS: BP 109/67; PULSE 75; RESP 16; TEMP 36.5; O2SAT 95
--- NOTE | 2018-09-03 14:12 | PGE_ITS ---
Date of Service Date of service: 09/03/18 Time of Service: 14:09 Assessment and Plan (1) Diarrhea: Current visit: Yes Status: Acute Evidence of profuse watery diarrhea, with concurrent nausea and vomiting - unremitting and persistent. Patient with normal imaging via CT and benign exam. He is also hungry and requesting food. Currently with C.Diff and stool cultures negative. Fecal Leukocytes are positive. Also with mildly elevated eosinophils. Initially held Metformin, Exanatide, and PPI, while providing supportive care with IVFs, anti-emetics, and pain control. Consider IBD, but CT without any significant abnormality and no blood in stool. Celiac is also part of the differential, albeit symptoms were very acute in onset, atypical, and without significant anemia to represent any lengthy course of malabsorption. Also with potential Rheumatologic process, neoplastic, endocrinologic, and fungal infectious process still in the differential. Fecal O&P also ordered and pending at this time. Being maintained on Gluten Free Diet with Tissue Transglutaminase panel pending. Discussed with GI who still favors potential infectious process. No EGD/Colonoscopy recommended at this time - rather continued supportive care. Will give attempt to antibiotic therapy and monitor symptoms. (2) Eosinophilia: Current visit: No Status: Acute As above. (3) GERD (gastroesophageal reflux disease): Current visit: Yes Status: Chronic IV PPI. (4) Hypertension: Current visit: Yes Status: Chronic Continue DONNY-I (5) Diabetes mellitus: Current visit: Yes Status: Chronic Holding metformin and Exanatide. Maintain on ISS. (6) PREM (obstructive sleep apnea): Current visit: Yes Status: Chronic Prior history, but with significant recent purposeful weight loss. May need eventual outpatient sleep study. (7) Dyslipidemia: Current visit: Yes Status: Chronic (8) Fatty liver: Current visit: Yes Status: Chronic Noted. (9) DVT prophylaxis: Current visit: Yes Status: Acute SC Lovenox. Subjective Interval history since last seen: 37 year old man with prior history of DM admitted from [facility] Emergency Department on 09/01 with Abdominal Pain, diarrhea, leukocytosis with Eosinophilia. Mr. Valdez has a prior history of DM, on Metformin and Exanatide. He also suffers from obesity, fatty liver, HTN, Dyslipidemia, and PREM. Mr. Mcclulough presented to the ED with a 3 day history of profuse watery diarrhea, abdominal cramping, nausea, and vomiting. He was seen for 3 consecutive days in the emergency department, noted to have a benign abdominal exam but with worsening leukocytosis, negative C.Diff, and stool cultures that returned negative for Shiga, Salmonella, and Campylobacter. He has been tried on Prednisone without effect as an outpatient. A repeat CT was obtained showing no acute abnormality. Blood work was significant for a WBC that had risen from 21 to 27.96, with 2.1 Absolute Eosinophils (normal 0-0.7). The patient was referred for admission. This morning the patient reports no improvement in his symptoms. His white count remains elevated with continued eosinophilia. Attempt at advancing diet per patient's wishes unsuccessful due to worsening pain. No overnight events reported. He remains afebrile. Exam Narrative Exam Narrative: General: Patient appears comfortable, AAOX3, NAD Neck: Supple CV: Regular, nontachycardic, S1S2, No rubs, murmurs, or gallops. Pulmonary: Clear to auscultation bilaterally, no crackles, wheezing, or rhonchi Abdomen: + Bowel Sounds, soft, Minimally diffusely tender, nondistended Vascular: No lower extremity edema Psych: Normal mood and affect. Objective Objective Clinical Data: Abnormal lab results 09/03/18 09/03/18 Range/Units 06:35 06:35 WBC 16.80 H (4.4-10.8) k/cumm Absolute Neutrophils 10.35 H (1.2-6.7) k/cumm Absolute Monocytes 1.11 H (0.11-0.7) k/cumm Absolute Eosinophils 2.32 H (0.0-0.7) k/cumm AST 9 L (15-37) U/L Total Protein 6.2 L (6.4-8.2) g/dL Albumin 3.0 L (3.4-5.0) g/dL Vital Signs Temperature 36.5 C 09/03/18 12:00 Temperature Source Tympanic 09/03/18 12:00 Pulse 75 09/03/18 12:00 Pulse Rhythm Regular 09/02/18 19:50 Respiratory Rate 16 09/03/18 12:00 Respiratory Effort Non-Labored 09/02/18 19:50 Respiratory Depth Normal 09/02/18 19:50 Respiratory Pattern Normal 09/02/18 19:50 Blood Pressure 109/67 09/03/18 12:00 Blood Pressure Position Sitting 09/01/18 02:41 Pulse Oximetry 95 09/03/18 12:00 Oxygen Delivery Method Room Air 09/03/18 12:00 Oxygen Flow Rate 0 09/03/18 12:00 Pain Level 7 09/03/18 11:50 Intake & Output 09/02/18 09/03/18 09/03/18 23:59 11:59 23:59 Intake Total 3231 / 4262 2118.5 / 2848.5 730 / 2848.5 Balance 3231 / 2062 2118.5 / 2848.5 730 / 2848.5 Intake: IV 2091 / 3122 2118.5 / 2118.5 Oral 1140 / 1140 730 / 730 Other: Urine Color Yellow Urine Appearance Clear Urine Odor Normal Comment No hat. Pt voiding independently. Denies sx. Stool Occult Blood Negative Stool Size Small Stool Characteristics Liquid Brown Voiding Methods Toilet Laboratory Results WBC 16.80 k/cumm (4.4-10.8) H 09/03/18 06:35 RBC 5.03 m/cumm (4.50-6.00) 09/03/18 06:35 Hgb 14.5 g/dL (13.5-17.5) 09/03/18 06:35 Hct 43.1 % (40.0-50.0) 09/03/18 06:35 MCV 85.7 fL (80-95) 09/03/18 06:35 MCH 28.8 pg (27.0-33.0) 09/03/18 06:35 MCHC 33.6 g/dL (32.0-36.0) 09/03/18 06:35 RDW 13.4 % (11.8-14.1) 09/03/18 06:35 Plt Count 263 x1000/uL (130-400) 09/03/18 06:35 MPV 10.3 fL (8.0-11.0) 09/03/18 06:35 Immature Gran % 1.0 09/03/18 06:35 Neutrophils % 61.6 09/03/18 06:35 Lymphocytes % 16.8 09/03/18 06:35 Monocytes % 6.6 09/03/18 06:35 Eosinophils % 13.8 09/03/18 06:35 Basophils % 0.2 09/03/18 06:35 Absolute Neutrophils 10.35 k/cumm (1.2-6.7) H 09/03/18 06:35 Absolute Lymphocytes 2.82 k/cumm (1.2-3.4) 09/03/18 06:35 Absolute Monocytes 1.11 k/cumm (0.11-0.7) H 09/03/18 06:35 Absolute Eosinophils 2.32 k/cumm (0.0-0.7) H 09/03/18 06:35 Absolute Basophils 0.03 k/cumm (0.0-0.2) 09/03/18 06:35 Differential Comment 09/01/18 02:55 RBC Morphology Normal 09/01/18 02:55 ESR 9 MM/HR (0-15) 09/03/18 06:35 Sodium 141 mmol/L (136-145) 09/03/18 06:35 Potassium 3.5 mmol/L (3.5-5.1) 09/03/18 06:35 Chloride 104 mmol/L (98-107) 09/03/18 06:35 Carbon Dioxide 29.5 mmol/L (21.0-32.0) 09/03/18 06:35 Anion Gap 7.5 mmol/L (3-11) 09/03/18 06:35 BUN 9 mg/dL (7-18) 09/03/18 06:35 Creatinine 0.96 mg/dL (0.70-1.30) 09/03/18 06:35 Estimated GFR/1.73 m2 >= 60.00 (mL/min/1.73m2) 09/03/18 06:35 Glucose 82 mg/dL (70-100) 09/03/18 06:35 Lactate 1.2 mmol/L (0.6-1.4) 09/01/18 02:55 Calcium 8.9 mg/dL (8.5-10.1) 09/03/18 06:35 Magnesium 1.8 mg/dL (1.8-2.4) 09/03/18 06:35 Total Bilirubin 0.3 mg/dL (0.2-1.0) 09/03/18 06:35 AST 9 U/L (15-37) L 09/03/18 06:35 ALT 23 U/L (12-78) 09/03/18 06:35 Alkaline Phosphatase 81 U/L (46-116) 09/03/18 06:35 Total Protein 6.2 g/dL (6.4-8.2) L 09/03/18 06:35 Albumin 3.0 g/dL (3.4-5.0) L 09/03/18 06:35 Lipase 110 U/L (73-393) 09/01/18 02:55 Stool O & P Source (see note) 09/01/18 12:00 Stool O & P Status (see note) 09/01/18 12:00 Ova & Parasite (see note) 09/01/18 12:00
[2018-09-03] MEDS: Enoxaparin 40 MG/0.4 ML SYR SC (15:13)
[2018-09-03 16:48] LABS: CRP, High Sensitivity 5.99 mg/L
[2018-09-03 16:53] VITALS: BP 125/65; PULSE 79; RESP 20; TEMP 36; O2SAT 99
[2018-09-04 00:26] VITALS: BP 136/75; PULSE 67; RESP 16; TEMP 36.2; O2SAT 99
[2018-09-04] MEDS: fentaNYL 100 MCG/2 ML VIAL 50 MCG IVP ×6 (02:53→23:02)
[2018-09-04] MEDS: Lactated Ringers 1,000 ML 150 ML IV ×3 (02:56→20:03)
[2018-09-04] MEDS: MetroNIDAZOLE 500 MG/100 ML BAG 100 MG IVPB ×3 (04:08→20:05)
[2018-09-04 07:35] LABS: Abs Immature Grans 0.19 k/cumm (0.0-0.09); Absolute Eosinophil Count 3.48 k/cumm (0.0-0.7); Absolute Monocyte Count 1.05 k/cumm (0.11-0.7); Basophils % 0.2; Eosinophils % 19.5; HCT 41.1 % (40.0-50.0); HGB 13.8 g/dL (13.5-17.5); Immature Grans % 1.1; Lymphocytes % 15.7; Mean Corp. HGB Concentration 33.6 g/dL (32.0-36.0); Mean Corpuscular Hemoglobin 28.7 pg (27.0-33.0); Mean Corpuscular Volume 85.4 fL (80-95); Monocytes % 5.9; Neutrophils % 57.6; Platelet Count 242 x1000/uL (130-400); RBC 4.81 m/cumm (4.50-6.00); RBC Distribution Width 13.3 % (11.8-14.1); White Blood Cell Count 17.85 k/cumm (4.4-10.8)
[2018-09-04 07:39] LABS: Absolute Basophil Count 0.04 k/cumm (0.0-0.2); Absolute Neutrophil Count 10.28 k/cumm (1.2-6.7)
[2018-09-04 07:51] LABS: Magnesium 1.9 mg/dL (1.8-2.4)
[2018-09-04 07:54] LABS: ALT 21 U/L (12-78); AST 12 U/L (15-37); Albumin 2.8 g/dL (3.4-5.0); Alkaline Phosphatase 74 U/L (46-116); Anion Gap 6.9 mmol/L (3-11); BUN 7 mg/dL (7-18); Bilirubin, Total 0.3 mg/dL (0.2-1.0); CO2 29.1 mmol/L (21.0-32.0); CREATININE 1.04 mg/dL (0.70-1.30); Calcium 8.8 mg/dL (8.5-10.1); Chloride 106 mmol/L (98-107); Glucose 91 mg/dL (70-100); Potassium 3.8 mmol/L (3.5-5.1); Sodium 142 mmol/L (136-145); Total Protein 5.8 g/dL (6.4-8.2)
[2018-09-04 08:06] LABS: Diff Comment Agrees w/ Instrument; RBC Morphology Normal
[2018-09-04] MEDS: Lisinopril 20 MG TAB PO (09:03)
[2018-09-04] MEDS: Loratidine 10 MG TAB PO (09:03)
[2018-09-04] MEDS: Montelukast 10 MG TAB PO (09:03)
[2018-09-04] MEDS: CIPROFLOXACIN 400 MG/200 ML BAG 200 MG IVPB ×2 (09:04→22:06)
[2018-09-04] MEDS: Normal Saline Flush 10 ML SYR IVP ×6 (09:04→20:02)
[2018-09-04 09:29] VITALS: BP 128/82; PULSE 73; RESP 16; TEMP 36.5; O2SAT 97
[2018-09-04] MEDS: Pantoprazole 40 MG VIAL IVP (10:07)
--- NOTE | 2018-09-04 11:02 | PGE_ITS ---
Documented by User: Rolanda Liao NP 09/04/18 11:20 Date of Service Date of service: 09/04/18 Time of Service: 11:10 Assessment and Plan (1) Abdominal pain: Start date: 09/04/18 Start time: 10:53 Current visit: No Status: Acute Still c/o cramping to lower abdomen, with Diarrhea, will start on bland diet no vomiting but having nausea, promethizine ordered if patient needs for nausea. (2) Diarrhea: Start date: 09/04/18 Start time: 10:55 Current visit: Yes Status: Acute Having 4-5 liquid stools today. Will continue with antibiotics while r/o infectious vs autoimmune vs neoplastic, endocrinological or fungal process. Afebrile last 24 hours. WBC has increased despite starting antbx, will continue to monitor (3) Hypertension: Start date: 09/04/18 Start time: 10:58 Current visit: Yes Status: Chronic Continue with DONNY (4) GERD (gastroesophageal reflux disease): Start date: 09/04/18 Start time: 10:58 Current visit: Yes Status: Chronic Continue with PPI and zantac (5) Diabetes mellitus: Start date: 09/04/18 Start time: 10:58 Current visit: Yes Status: Chronic Continue to monitor bgl. with holding metformin and exanatide, bgl has been in 80's (6) Leukocytosis (leucocytosis): Start date: 09/04/18 Start time: 10:59 Current visit: No Status: Acute Increased WBC from 16 yesterday to 17.85 today despite being on Cipro and flagyl, will continue to monitor WBC and will change antibiotics if WBC does not seem to improve. (7) Eosinophilia: Start date: 09/04/18 Start time: 11:00 Current visit: No Status: Acute Increased WBC with eosinophilia level higher today at 3.48 up from 2.32 yesterday, will continue to monitor. and r/o possible causes (8) DVT prophylaxis: Start date: 09/04/18 Start time: 11:10 Current visit: Yes Status: Acute Pt on enoxaprin Subjective Patient reports: no new complaints, still having pain and afebrile Interval history since last seen: 37 year old man with prior history of DM admitted from [facility] Emergency Department on 09/01 with Abdominal Pain, diarrhea, leukocytosis with Eosinophilia. Mr. Valdez has a prior history of DM, on Metformin and Exanatide. He also suffers from obesity in which he has had a recent intentional weight loss of 40 lbs., fatty liver, HTN, Dyslipidemia, and PREM. Mr. Mccullough presented to the ED with a 3 day history of profuse watery diarrhea, abdominal cramping, nausea, and vomiting. He was seen for 3 consecutive days in the emergency department, noted to have a benign abdominal exam but with worsening leukocytosis, negative C.Diff, and stool cultures that returned negative for Shiga, Salmonella, and Campylobacter. He has been tried on Prednisone without effect as an outpatient. A repeat CT was obtained showing no acute abnormality. Blood work was significant for a WBC that had risen from 21 to 27.96, with 2.1 Absolute Eosinophils (normal 0-0.7). The patient was referred for admission. Today he states feeling slightly better, still having diarrhea with approx 5 liquid stools since this am. Continues to have abdominal cramping to lower quads bilaterally. No vomiting, but c/o nausea with eating. Asking for food, I explained we will start on a bland GF diet but if pain worsens or he starts to vomit we will have to change it back to clears liquids, pt was clear and on plan and agreed. Explained about white count going up despite antibiotics and we wanted to continue to monitor, pt agreed with plan. Afebrile at this time. Exam Const General: cooperative, healthy appearing and no acute distress Nutritional Appearance: overweight Orientation: alert, awake and oriented x3 HENMT Head: normal to inspection Face and sinus: normal facial exam Eyes General: appearance normal, both eyes and all related structures Eyelids: eyelids normal Sclera: sclerae normal Cornea: corneas normal Pupils: PERRL Neck Neck: normal visual inspection and trachea midline Lymphatic: no lymphadenopathy noted and no lymphedema noted Chest Chest: normal inspection of the chest Resp Effort & Inspection: normal respiratory effort and able to speak in complete sentences Auscultation: clear to auscultation bilaterally Percussion: percussion normal Cardio Jugular venous pressure: no JVD Palpation: normal PMI Rate: regular rate Rhythm: regular rhythm Heart Sounds: S1 normal and S2 normal GI Inspection: normal to inspection Palpation: soft Auscultation: normoactive bowel sounds Other: pain with palapation Back/Spine/Pelvis Back: no CVA tenderness Skin General skin exam: no rashes or lesions noted Wounds: no wounds Neuro General: alert, awake and oriented x3 Extrem General: normal to inspection Right lower extremity: normal to inspection Left lower extremity: normal to inspection Psych Appearance: grossly normal Objective Objective Clinical Data: Abnormal lab results 09/04/18 09/04/18 Range/Units 07:00 07:00 WBC 17.85 H (4.4-10.8) k/cumm Absolute Neutrophils 10.28 H (1.2-6.7) k/cumm Absolute Monocytes 1.05 H (0.11-0.7) k/cumm Absolute Eosinophils 3.48 H (0.0-0.7) k/cumm AST 12 L (15-37) U/L Total Protein 5.8 L (6.4-8.2) g/dL Albumin 2.8 L (3.4-5.0) g/dL Vital Signs Temperature 36.5 C 09/04/18 09:29 Temperature Source Tympanic 09/04/18 09:29 Pulse 73 09/04/18 09:29 Pulse Rhythm Regular 09/03/18 23:16 Respiratory Rate 16 09/04/18 09:29 Respiratory Effort Non-Labored 09/03/18 23:16 Respiratory Depth Normal 09/03/18 23:16 Respiratory Pattern Normal 09/03/18 23:16 Blood Pressure 128/82 09/04/18 09:29 Blood Pressure Position Sitting 09/01/18 02:41 Pulse Oximetry 97 09/04/18 09:29 Oxygen Delivery Method Room Air 09/04/18 09:29 Oxygen Flow Rate 0 09/04/18 09:29 Pain Level 8 09/04/18 09:03 Intake & Output 09/03/18 09/03/18 09/04/18 11:59 23:59 11:59 Intake Total 2318.5 / 4628.5 2310 / 4628.5 1251 / 1251 Balance 2318.5 / 4628.5 2310 / 4628.5 1251 / 1251 Intake: IV 2318.5 / 3418.5 1100 / 3418.5 1251 / 1251 Oral 1210 / 1210 Other: Comment Ind w UOP Stool Occult Blood Negative Stool Size Moderate Voiding Methods Toilet Laboratory Results WBC 17.85 k/cumm (4.4-10.8) H 09/04/18 07:00 RBC 4.81 m/cumm (4.50-6.00) 09/04/18 07:00 Hgb 13.8 g/dL (13.5-17.5) 09/04/18 07:00 Hct 41.1 % (40.0-50.0) 09/04/18 07:00 MCV 85.4 fL (80-95) 09/04/18 07:00 MCH 28.7 pg (27.0-33.0) 09/04/18 07:00 MCHC 33.6 g/dL (32.0-36.0) 09/04/18 07:00 RDW 13.3 % (11.8-14.1) 09/04/18 07:00 Plt Count 242 x1000/uL (130-400) 09/04/18 07:00 MPV 10.0 fL (8.0-11.0) 09/04/18 07:00 Immature Gran % 1.1 09/04/18 07:00 Neutrophils % 57.6 09/04/18 07:00 Lymphocytes % 15.7 09/04/18 07:00 Monocytes % 5.9 09/04/18 07:00 Eosinophils % 19.5 09/04/18 07:00 Basophils % 0.2 09/04/18 07:00 Absolute Neutrophils 10.28 k/cumm (1.2-6.7) H 09/04/18 07:00 Absolute Lymphocytes 2.80 k/cumm (1.2-3.4) 09/04/18 07:00 Absolute Monocytes 1.05 k/cumm (0.11-0.7) H 09/04/18 07:00 Absolute Eosinophils 3.48 k/cumm (0.0-0.7) H 09/04/18 07:00 Absolute Basophils 0.04 k/cumm (0.0-0.2) 09/04/18 07:00 Differential Comment Agrees w/ instrument 09/04/18 07:00 RBC Morphology Normal 09/04/18 07:00 ESR 9 MM/HR (0-15) 09/03/18 06:35 Sodium 142 mmol/L (136-145) 09/04/18 07:00 Potassium 3.8 mmol/L (3.5-5.1) 09/04/18 07:00 Chloride 106 mmol/L (98-107) 09/04/18 07:00 Carbon Dioxide 29.1 mmol/L (21.0-32.0) 09/04/18 07:00 Anion Gap 6.9 mmol/L (3-11) 09/04/18 07:00 BUN 7 mg/dL (7-18) 09/04/18 07:00 Creatinine 1.04 mg/dL (0.70-1.30) 09/04/18 07:00 Estimated GFR/1.73 m2 >= 60.00 (mL/min/1.73m2) 09/04/18 07:00 Glucose 91 mg/dL (70-100) 09/04/18 07:00 Lactate 1.2 mmol/L (0.6-1.4) 09/01/18 02:55 Calcium 8.8 mg/dL (8.5-10.1) 09/04/18 07:00 Magnesium 1.9 mg/dL (1.8-2.4) 09/04/18 07:00 Total Bilirubin 0.3 mg/dL (0.2-1.0) 09/04/18 07:00 AST 12 U/L (15-37) L 09/04/18 07:00 ALT 21 U/L (12-78) 09/04/18 07:00 Alkaline Phosphatase 74 U/L (46-116) 09/04/18 07:00 Total Protein 5.8 g/dL (6.4-8.2) L 09/04/18 07:00 Albumin 2.8 g/dL (3.4-5.0) L 09/04/18 07:00 Lipase 110 U/L (73-393) 09/01/18 02:55 Stool O & P Source (see note) 09/01/18 12:00 Stool O & P Status (see note) 09/01/18 12:00 Ova & Parasite (see note) 09/01/18 12:00 Documented by User: Raven Leone MD 09/04/18 18:55
[2018-09-04] MEDS: Enoxaparin 40 MG/0.4 ML SYR SC (13:48)
--- NOTE | 2018-09-04 14:27 | PDOC.CMPRO ---
Care Management Progress Note S/O: Sitting up in bed stated he would like to have more food. A: 37 yo male admitted for diarrhea. P: Return home with no services needed when medically cleared for discharge.
[2018-09-04 16:18] VITALS: BP 143/84; PULSE 79; RESP 18; TEMP 37.1; O2SAT 98
[2018-09-04 19:01] LABS: Tissue Transglutaminase Ab IgA <1.2 U/mL; Tissue Transglutaminase Ab IgG <1.2 U/mL
[2018-09-04] MEDS: Ondansetron 4 MG/2 ML VIAL IVP (20:02)
[2018-09-04 23:58] VITALS: BP 143/82; PULSE 74; RESP 19; TEMP 37.1; O2SAT 96
[2018-09-05] MEDS: MetroNIDAZOLE 500 MG/100 ML BAG 100 MG IVPB ×3 (04:00→19:19)
[2018-09-05 07:19] LABS: HCT 41.2 % (40.0-50.0); HGB 14.1 g/dL (13.5-17.5); Mean Corp. HGB Concentration 34.2 g/dL (32.0-36.0); Mean Corpuscular Hemoglobin 28.8 pg (27.0-33.0); Mean Corpuscular Volume 84.3 fL (80-95); Mean Platelet Volume 9.9 fL (8.0-11.0); Platelet Count 236 x1000/uL (130-400); RBC 4.89 m/cumm (4.50-6.00)
[2018-09-05] MEDS: Ondansetron 4 MG/2 ML VIAL IVP ×3 (07:40→19:19)
[2018-09-05 07:42] LABS: ALT 21 U/L (12-78); AST 9 U/L (15-37); Alkaline Phosphatase 83 U/L (46-116); BUN 8 mg/dL (7-18); Bilirubin, Total 0.3 mg/dL (0.2-1.0); CREATININE 0.99 mg/dL (0.70-1.30); Calcium 8.7 mg/dL (8.5-10.1); Chloride 105 mmol/L (98-107); Glucose 97 mg/dL (70-100); Magnesium 1.8 mg/dL (1.8-2.4); Potassium 3.8 mmol/L (3.5-5.1); Sodium 142 mmol/L (136-145); Total Protein 6.2 g/dL (6.4-8.2)
[2018-09-05] MEDS: Lisinopril 20 MG TAB PO (07:45)
[2018-09-05] MEDS: Loratidine 10 MG TAB PO (07:45)
[2018-09-05] MEDS: CIPROFLOXACIN 400 MG/200 ML BAG 200 MG IVPB ×2 (07:45→20:37)
[2018-09-05] MEDS: fentaNYL 100 MCG/2 ML VIAL 50 MCG IVP ×6 (07:46→23:29)
[2018-09-05] MEDS: Montelukast 10 MG TAB PO (07:46)
[2018-09-05] MEDS: Normal Saline Flush 10 ML SYR IVP ×5 (07:46→17:04)
[2018-09-05 08:10] VITALS: BP 134/87; PULSE 79; RESP 20; TEMP 37.6; O2SAT 96
[2018-09-05] MEDS: Lactated Ringers 1,000 ML 150 ML IV ×2 (10:00→17:20)
[2018-09-05] MEDS: Pantoprazole 40 MG VIAL IVP (10:06)
[2018-09-05 11:39] LABS: Abs Immature Grans 0.27 k/cumm (0.0-0.09)
[2018-09-05 12:12] LABS: Absolute Eosinophil Count 3.51 k/cumm (0.0-0.7); Absolute Lymphocyte Count 3.17 k/cumm (1.2-3.4); Absolute Monocyte Count 0.84 k/cumm (0.11-0.7); Absolute Neutrophil Count 8.68 k/cumm (1.2-6.7); Atypical Lymphocytes % 3
[2018-09-05 12:14] LABS: Diff Comment Manual Differential; RBC Morphology Normal
[2018-09-05] MEDS: Preparation H 28 GM TUBE PR (12:39)
[2018-09-05] MEDS: Breeza Beverage 473 ML BTL PO ×2 (13:34→13:35)
[2018-09-05] MEDS: Omnipaque 350 MG/ML 50 ML BTL PO (13:35)
[2018-09-05] MEDS: Omnipaque 350 MG/ML 100 ML BTL IJ (14:33)
--- NOTE | 2018-09-05 14:35 | DI.COMBO_ITS ---
SYMPTOM/DIAGNOSIS: HYPEREOSINOPHILIA, SWETA, PERSISTENT DIARRHEA PA AND LATERAL CHEST: Comparison is made with 03/24/15. The heart is normal in size. The lungs are clear. The mediastinal structures and pleura appear intact. CONCLUSION: Normal chest. ABDOMEN AND PELVIC CT: CT scan of the abdomen and pelvis was performed following the uneventful administration of intravenous and oral contrast material. Comparison is made with 09/01/18. Dependent atelectatic changes are seen in the lung bases. The liver is unremarkable. The portal and superior mesenteric veins and splenic veins are all patent. The gallbladder is negative. No biliary ductal dilatation is seen. The pancreas, spleen and adrenal glands are unremarkable. The kidneys show normal and symmetric enhancement. No evidence of a solid renal mass or obstruction. The urinary bladder is intact. The reproductive organs are unremarkable. The abdominal aorta is of normal caliber. No aneurysmal dilatation is seen. No significant abdominal or pelvic adenopathy, ascites or pneumoperitoneum is present. The bowel shows no evidence of obstruction or inflammation. There is fluid seen throughout the colon. There is a normal appendix present. The bones are intact. IMPRESSION: Fluid seen throughout the colon which may be seen in a diarrheal illness.
--- NOTE | 2018-09-05 15:00 | DI.VRAD_ITS ---
EXAM: XR Chest, 2 Views EXAM DATE/TIME: 09/05/2018 2:38 PM CLINICAL HISTORY: 37 years old, male; Signs and symptoms; Other: Hypereosinophilia TECHNIQUE: XR of the chest, 2 views. COMPARISON: CR CHEST 2 VIEWS PA,LAT 03/24/2015 1:32 PM FINDINGS: No airspace consolidation, pleural effusion or pneumothorax. The cardiomediastinal silhouette is unremarkable. IMPRESSION: No acute findings. Dictated and Authenticated by: Krystian Ruffin MD. Ordering:YARELI Carbajal MD
--- NOTE | 2018-09-05 15:03 | DI.VRAD_ITS ---
EXAM: CT Abdomen and Pelvis With Contrast EXAM DATE/TIME: 09/05/2018 1:21 PM CLINICAL HISTORY: 37 years old, male; Signs and symptoms; Other: Sirs, diarrhea TECHNIQUE: Axial computed tomography images of the abdomen and pelvis with intravenous contrast. Coronal and sagittal reformatted images were created and reviewed. CONTRAST: 100 ml of [id number] administered intravenously. COMPARISON: CT Private^ROUTINE ABDOMEN PELVIS WITH CONTRAST (Adult) 08/30/2018 6:29 PM FINDINGS: Lower thorax: Bibasilar dependent atelectasis/infiltrates. ABDOMEN: Liver: Normal. No mass. Gallbladder and bile ducts: Normal. No calcified stones. No ductal dilation. Pancreas: Normal. No ductal dilation. Spleen: Normal. No splenomegaly. Adrenals: Normal. No mass. Kidneys and ureters: Normal. No hydronephrosis. Stomach and bowel: No evidence of bowel obstruction. There is fluid throughout the colon. No mucosal thickening. There are scattered colonic diverticula without diverticulitis. Appendix: Normal appendix. PELVIS: Bladder: Unremarkable as visualized. Reproductive: Unremarkable as visualized. ABDOMEN and PELVIS: Intraperitoneal space: Normal. No free air. No significant fluid collection. Bones/joints: Dysplastic right hip. No acute fracture. No dislocation. Soft tissues: Unremarkable. Vasculature: Normal. No abdominal aortic aneurysm. Lymph nodes: Normal. No enlarged lymph nodes. IMPRESSION: Fluid throughout the colon which reflect a diarrheal illness. No mucosal thickening. Dictated and Authenticated by: Krystian Ruffin MD. Ordering:YARELI Carbajal MD
[2018-09-05 16:00] VITALS: BP 146/78; PULSE 76; RESP 18; TEMP 37.1; O2SAT 97
--- NOTE | 2018-09-05 18:49 | PDOC.CMPRO ---
Care Management Progress Note S/O: Sitting up in bed and said he really did not feel well today. Continues to have loose stool, abdominal pain and bloating. Pending results of diagnostic testing he may transfer to [facility] to receive services from gastroenterology. A: 37 yo male admitted for diarrhea. P: Transfer to [facility] for further care or return home with no services needed when medically cleared for discharge.
--- NOTE | 2018-09-05 18:59 | CMPROGNOTE_ITS ---
Care Management Progress Note S/O: Sitting up in bed and said he really did not feel well today. Continues to have loose stool, abdominal pain and bloating. Pending results of diagnostic testing he may transfer to [facility] to receive services from gastroenterology. A: 37 yo male admitted for diarrhea. P: Transfer to [facility] for further care or return home with no services needed when medically cleared for discharge.
--- NOTE | 2018-09-05 19:56 | PGE_ITS ---
Date of Service Date of service: 09/05/18 Time of Service: 12:00 Assessment and Plan (1) SIRS (systemic inflammatory response syndrome): Current visit: Yes Status: Acute With eosinophilic predominance in association with diarrhea. As above, case discussed with ID. Continue IVF, empiric antibiotics, await parasite serologies, O&P's. Continue to monitor WBC. (2) Enterocolitis: Current visit: Yes Status: Acute Read discussion above (3) Eosinophilia: Current visit: No Status: Acute Likely related to diarrhea, but will obtain flow cytometry and ASCA antibodies to r/o Crohn's. (4) GERD (gastroesophageal reflux disease): Current visit: Yes Status: Chronic Continue ranitidine (5) Diabetes mellitus: Current visit: Yes Status: Chronic (6) PREM (obstructive sleep apnea): Current visit: Yes Status: Chronic will bring in CPAP tomorrow (7) Dyslipidemia: Current visit: Yes Status: Chronic F/u as outpatient (8) Fatty liver: Current visit: Yes Status: Chronic F/u as outpatient (9) Hypertension: Current visit: Yes Status: Chronic Holding lisinopril as patient got a CT with contrast today (10) Discharge planning issues: Current visit: Yes Status: Acute Full code May require a transfer to a tertiary care facility (11) DVT prophylaxis: Current visit: Yes Status: Acute Not indicated in an ambulatory 37 year old male Subjective Interval history since last seen: The patient states his stools are maybe starting to thicken up. He is having more abdominal pain (BLQ). No nausea. Denies dizziness, chest pain, shortness of breath. I spoke with [facility] ID (Dr Alva) x 2 as well as with [facility] GI (Dr Fisher). Per ID, we were recommended to order the following serologies: strongyloides, toxocara, Trichenella, and Filaria. We were saked to do more O&P testing, flow cytometry. It was mentioned that rare cases of Crohn's disease can present with eosinophilia. We were recommended to obtain a CXR (in w/u of eosinophilia syndromes). Per GI, This is not a situation which would warrant an inpatient colonoscopy at this time, but per ID, there may still be a role for transfer of the patient to a facility with inpatient GI consultation available if the patient does not improve. Exam Narrative Exam Narrative: General: male, very pleasant, comfortable in bed HEENT: EOMI, MMM Heart: RRR, no m/r/g Lungs: CTAB GI: abdomen soft, no rebound tenderness, but is mildly tender in BLQ Extremities: no e/c/c BLE's Objective Objective Clinical Data: Abnormal lab results 09/05/18 09/05/18 Range/Units 06:55 06:55 WBC 16.70 H (4.4-10.8) k/cumm Absolute Neutrophils 8.68 H (1.2-6.7) k/cumm Absolute Monocytes 0.84 H (0.11-0.7) k/cumm Absolute Eosinophils 3.51 H (0.0-0.7) k/cumm AST 9 L (15-37) U/L Total Protein 6.2 L (6.4-8.2) g/dL Albumin 3.0 L (3.4-5.0) g/dL Vital Signs Temperature 37.1 C 09/05/18 16:00 Temperature Source Tympanic 09/05/18 16:00 Pulse 76 09/05/18 16:00 Pulse Rhythm Regular 09/05/18 19:21 Respiratory Rate 18 09/05/18 16:00 Respiratory Effort 09/05/18 19:21 Respiratory Depth Normal 09/05/18 19:21 Respiratory Pattern Normal 09/05/18 19:21 Blood Pressure 146/78 H 09/05/18 16:00 Blood Pressure Position Sitting 09/01/18 02:41 Pulse Oximetry 97 09/05/18 16:00 Oxygen Delivery Method Room Air 09/05/18 16:00 Oxygen Flow Rate 0 09/05/18 16:00 Pain Level 7 09/05/18 19:19 Intake & Output 09/04/18 09/05/18 09/05/18 23:59 11:59 23:59 Intake Total 2232 / 5313 2038.5 / 4059.5 2021.0 / 4059.5 Balance 2232 / 5313 2038.5 / 4059.5 2021.0 / 4059.5 Intake: IV 1512 / 4113 1558.5 / 2619.5 1061.0 / 2619.5 Oral 720 / 1200 480 / 1440 960 / 1440 Other: Urine Appearance Clear Clear Comment patient up ad jennyfer to the toilet Voiding ad jennyfer. Denies sx. Stool Size Moderate Small Stool Characteristics Liquid Liquid Brown Brown Voiding Methods Toilet Toilet Laboratory Results WBC 16.70 k/cumm (4.4-10.8) H 09/05/18 06:55 RBC 4.89 m/cumm (4.50-6.00) 09/05/18 06:55 Hgb 14.1 g/dL (13.5-17.5) 09/05/18 06:55 Hct 41.2 % (40.0-50.0) 09/05/18 06:55 MCV 84.3 fL (80-95) 09/05/18 06:55 MCH 28.8 pg (27.0-33.0) 09/05/18 06:55 MCHC 34.2 g/dL (32.0-36.0) 09/05/18 06:55 RDW 13.0 % (11.8-14.1) 09/05/18 06:55 Plt Count 236 x1000/uL (130-400) 09/05/18 06:55 MPV 9.9 fL (8.0-11.0) 09/05/18 06:55 Immature Gran % See Differential 09/05/18 06:55 Neutrophils % 48.0 09/05/18 06:55 Band Neutrophils % 4.0 % 09/05/18 06:55 Lymphocytes % 16.0 09/05/18 06:55 Atypical Lymphs % 3 09/05/18 06:55 Monocytes % 5.0 09/05/18 06:55 Eosinophils % 21.0 09/05/18 06:55 Basophils % 0.0 09/05/18 06:55 Absolute Neutrophils 8.68 k/cumm (1.2-6.7) H 09/05/18 06:55 Absolute Lymphocytes 3.17 k/cumm (1.2-3.4) 09/05/18 06:55 Absolute Monocytes 0.84 k/cumm (0.11-0.7) H 09/05/18 06:55 Absolute Eosinophils 3.51 k/cumm (0.0-0.7) H 09/05/18 06:55 Absolute Basophils 0.00 k/cumm (0.0-0.2) 09/05/18 06:55 Myelocytes 3.0 % 09/05/18 06:55 Differential Comment Manual differential 09/05/18 06:55 RBC Morphology Normal 09/05/18 06:55 ESR 9 MM/HR (0-15) 09/03/18 06:35 Sodium 142 mmol/L (136-145) 09/05/18 06:55 Potassium 3.8 mmol/L (3.5-5.1) 09/05/18 06:55 Chloride 105 mmol/L (98-107) 09/05/18 06:55 Carbon Dioxide 29.0 mmol/L (21.0-32.0) 09/05/18 06:55 Anion Gap 8.0 mmol/L (3-11) 09/05/18 06:55 BUN 8 mg/dL (7-18) 09/05/18 06:55 Creatinine 0.99 mg/dL (0.70-1.30) 09/05/18 06:55 Estimated GFR/1.73 m2 >= 60.00 (mL/min/1.73m2) 09/05/18 06:55 Glucose 97 mg/dL (70-100) 09/05/18 06:55 Lactate 1.2 mmol/L (0.6-1.4) 09/01/18 02:55 Calcium 8.7 mg/dL (8.5-10.1) 09/05/18 06:55 Magnesium 1.8 mg/dL (1.8-2.4) 09/05/18 06:55 Total Bilirubin 0.3 mg/dL (0.2-1.0) 09/05/18 06:55 AST 9 U/L (15-37) L 09/05/18 06:55 ALT 21 U/L (12-78) 09/05/18 06:55 Alkaline Phosphatase 83 U/L (46-116) 09/05/18 06:55 Total Protein 6.2 g/dL (6.4-8.2) L 09/05/18 06:55 Albumin 3.0 g/dL (3.4-5.0) L 09/05/18 06:55 Lipase 110 U/L (73-393) 09/01/18 02:55 Stool O & P Source (see note) 09/01/18 12:00 Stool O & P Status (see note) 09/01/18 12:00 Ova & Parasite (see note) 09/01/18 12:00
[2018-09-05 23:29] VITALS: BP 142/80; PULSE 66; RESP 18; TEMP 37; O2SAT 96
[2018-09-06] MEDS: MetroNIDAZOLE 500 MG/100 ML BAG 100 MG IVPB ×4 (00:23→18:06)
[2018-09-06] MEDS: Normal Saline Flush 10 ML SYR IVP ×6 (02:06→18:19)
[2018-09-06] MEDS: Ondansetron 4 MG/2 ML VIAL IVP ×4 (02:06→15:23)
[2018-09-06] MEDS: fentaNYL 100 MCG/2 ML VIAL 50 MCG IVP ×8 (02:06→22:54)
[2018-09-06] MEDS: Lactated Ringers 1,000 ML 150 ML IV ×3 (02:08→23:02)
[2018-09-06 07:28] LABS: Abs Immature Grans 0.22 k/cumm (0.0-0.09); Absolute Eosinophil Count 3.73 k/cumm (0.0-0.7); Basophils % 0.3; Eosinophils % 21.6; HCT 41.3 % (40.0-50.0); HGB 14.2 g/dL (13.5-17.5); Immature Grans % 1.3; Lymphocytes % 15.8; Mean Corp. HGB Concentration 34.4 g/dL (32.0-36.0); Mean Corpuscular Hemoglobin 29.1 pg (27.0-33.0); Mean Corpuscular Volume 84.6 fL (80-95); Mean Platelet Volume 10.1 fL (8.0-11.0); Monocytes % 6.4; Neutrophils % 54.6; Platelet Count 230 x1000/uL (130-400); RBC 4.88 m/cumm (4.50-6.00); RBC Distribution Width 13.1 % (11.8-14.1); White Blood Cell Count 17.25 k/cumm (4.4-10.8)
[2018-09-06] MEDS: Loratidine 10 MG TAB PO (07:37)
[2018-09-06] MEDS: Montelukast 10 MG TAB PO (07:37)
[2018-09-06] MEDS: CIPROFLOXACIN 400 MG/200 ML BAG 200 MG IVPB ×2 (07:37→21:10)
[2018-09-06 07:43] LABS: Absolute Basophil Count 0.05 k/cumm (0.0-0.2); Absolute Lymphocyte Count 2.73 k/cumm (1.2-3.4); Absolute Neutrophil Count 9.42 k/cumm (1.2-6.7)
[2018-09-06 08:07] LABS: ALT 30 U/L (12-78); AST 20 U/L (15-37); Albumin 2.9 g/dL (3.4-5.0); Alkaline Phosphatase 84 U/L (46-116); Anion Gap 6.6 mmol/L (3-11); BUN 7 mg/dL (7-18); Bilirubin, Total 0.3 mg/dL (0.2-1.0); CO2 30.4 mmol/L (21.0-32.0); CREATININE 1.11 mg/dL (0.70-1.30); Chloride 105 mmol/L (98-107); Glucose 97 mg/dL (70-100); Potassium 4.1 mmol/L (3.5-5.1); Sodium 142 mmol/L (136-145); Total Protein 6.4 g/dL (6.4-8.2)
[2018-09-06 08:48] VITALS: BP 132/80; PULSE 74; RESP 20; TEMP 36.5; O2SAT 95
[2018-09-06 12:00] VITALS: TEMP 36.6
--- NOTE | 2018-09-06 13:29 | W.PM.PROGNOT ---
Documented by User: Rolanda Liao NP 09/06/18 16:10 Date of Service Date of service: 09/06/18 Time of Service: 13:29 Assessment and Plan (1) SIRS (systemic inflammatory response syndrome): Start date: 09/06/18 Start time: 13:30 Current visit: Yes Status: Acute With eosinophilic predominance in association with diarrhea., discussed with ID CRP 5.99, Giardia/Crypto negative, TTP IgA, IgG negative. Continue IVF, empiric antibiotics, await parasite serologies, O&P's. Continue to monitor WBC. At this point feel it would be best to transfer patient to tertiary facility with ID. (2) Enterocolitis: Start date: 09/06/18 Start time: 13:32 Current visit: Yes Status: Acute Read discussion above (3) Eosinophilia: Start date: 09/06/18 Start time: 13:32 Current visit: No Status: Acute Likely related to diarrhea, but will obtain flow cytometry and ASCA antibodies to r/o Crohn's. (4) GERD (gastroesophageal reflux disease): Start date: 09/06/18 Start time: 13:33 Current visit: Yes Status: Chronic Continue ranitidine (5) Diabetes mellitus: Start date: 09/06/18 Start time: 13:33 Current visit: Yes Status: Chronic Continue to monitor bgl. with holding metformin and exanatide, bgl has been in 80's (6) PREM (obstructive sleep apnea): Start date: 09/06/18 Start time: 13:33 Current visit: Yes Status: Chronic on CPAP at (7) Dyslipidemia: Start date: 09/06/18 Start time: 13:33 Current visit: Yes Status: Chronic F/u as outpatient (8) Fatty liver: Start date: 09/06/18 Start time: 13:34 Current visit: Yes Status: Chronic F/u as outpatient (9) Hypertension: Start date: 09/06/18 Start time: 13:34 Current visit: Yes Status: Chronic Holding lisinopril as patient got a CT with contrast yesterday (10) Discharge planning issues: Current visit: Yes Status: Acute Full code transfer to a tertiary care facility (11) DVT prophylaxis: Current visit: Yes Status: Acute Not indicated in an ambulatory 37 year old male Subjective Patient reports: no new complaints, still having pain and afebrile Interval history since last seen: 37 year old man with prior history of DM admitted from [facility] Emergency Department on 09/01 with Abdominal Pain, diarrhea, leukocytosis with Eosinophilia. Mr. Valdez has a prior history of DM, on Metformin and Exanatide. He also suffers from obesity in which he has had a recent intentional weight loss of 40 lbs., fatty liver, HTN, Dyslipidemia, and PREM. Mr. Mccullough presented to the ED with a 3 day history of profuse watery diarrhea, abdominal cramping, nausea, and vomiting. He was seen for 3 consecutive days in the emergency department, noted to have a benign abdominal exam but with worsening leukocytosis, negative C.Diff, and stool cultures that returned negative for Shiga, Salmonella, and Campylobacter. He has been tried on Prednisone without effect as an outpatient. A repeat CT was obtained showing no acute abnormality. Blood work was significant for a WBC that had risen from 21 to 27.96, with 2.1 Absolute Eosinophils (normal 0-0.7). The patient was referred for admission. Today not feeling any better, has not had any liquid stool since last night, appears flushed and pale. Continues to have abdominal cramping to lower quads bilaterally. No vomiting, but c/o nausea with eating.I explained about a transfer to another facility with ID and GI, patient was agreeable to transfer. Explained about white count going up despite antibiotics and we wanted to continue to monitor, pt agreed with plan. Afebrile at this time. Patient has been accepted to [facility], for transfer tomorrow. Exam Const General: cooperative, no acute distress and ill appearing Nutritional Appearance: overweight Orientation: alert, awake and oriented x3 HENMT Head: normal to inspection Face and sinus: normal facial exam Eyes General: appearance normal, both eyes and all related structures Eyelids: eyelids normal Sclera: sclerae normal Cornea: corneas normal Pupils: PERRL Neck Neck: normal visual inspection and trachea midline Lymphatic: no lymphadenopathy noted and no lymphedema noted Chest Chest: normal inspection of the chest Resp Effort & Inspection: normal respiratory effort and able to speak in complete sentences Auscultation: clear to auscultation bilaterally Percussion: percussion normal Cardio Jugular venous pressure: no JVD Palpation: normal PMI Rate: regular rate Rhythm: regular rhythm Heart Sounds: S1 normal and S2 normal GI Inspection: normal to inspection Palpation: soft Auscultation: normoactive bowel sounds Other: severe pain to lower quads bilaterally upon palpitation Back/Spine/Pelvis Back: no CVA tenderness Skin General skin exam: no rashes or lesions noted Wounds: no wounds Neuro General: alert, awake and oriented x3 Extrem General: normal to inspection Right lower extremity: normal to inspection Left lower extremity: normal to inspection Psych Appearance: grossly normal Objective Objective Clinical Data: Abnormal lab results 09/06/18 09/06/18 Range/Units 07:00 07:00 WBC 17.25 H (4.4-10.8) k/cumm Absolute Neutrophils 9.42 H (1.2-6.7) k/cumm Absolute Monocytes 1.10 H (0.11-0.7) k/cumm Absolute Eosinophils 3.73 H (0.0-0.7) k/cumm Albumin 2.9 L (3.4-5.0) g/dL Vital Signs Temperature 36.6 C 09/06/18 12:00 Temperature Source Tympanic 09/06/18 12:00 Pulse 74 09/06/18 08:48 Pulse Rhythm Regular 09/06/18 07:33 Respiratory Rate 20 09/06/18 08:48 Respiratory Effort 09/06/18 07:33 Respiratory Depth Normal 09/06/18 07:33 Respiratory Pattern Normal 09/06/18 07:33 Blood Pressure 132/80 09/06/18 08:48 Blood Pressure Position Sitting 09/01/18 02:41 Pulse Oximetry 95 09/06/18 08:48 Oxygen Delivery Method Room Air 09/06/18 08:48 Oxygen Flow Rate 0 09/06/18 08:48 Pain Level 7 09/06/18 12:27 Intake & Output 09/05/18 09/06/18 09/06/18 23:59 11:59 23:59 Intake Total 2111.0 / 4957.0 3049.5 / 3049.5 Balance 2111.0 / 4957.0 3049.5 / 3049.5 Intake: IV 1061.0 / 3427.0 2509.5 / 2509.5 Oral 1050 / 1530 540 / 540 Other: Urine Appearance Clear Clear Comment UOP toilet x 1 Laboratory Results WBC 17.25 k/cumm (4.4-10.8) H 09/06/18 07:00 RBC 4.88 m/cumm (4.50-6.00) 09/06/18 07:00 Hgb 14.2 g/dL (13.5-17.5) 09/06/18 07:00 Hct 41.3 % (40.0-50.0) 09/06/18 07:00 MCV 84.6 fL (80-95) 09/06/18 07:00 MCH 29.1 pg (27.0-33.0) 09/06/18 07:00 MCHC 34.4 g/dL (32.0-36.0) 09/06/18 07:00 RDW 13.1 % (11.8-14.1) 09/06/18 07:00 Plt Count 230 x1000/uL (130-400) 09/06/18 07:00 MPV 10.1 fL (8.0-11.0) 09/06/18 07:00 Immature Gran % 1.3 09/06/18 07:00 Neutrophils % 54.6 09/06/18 07:00 Band Neutrophils % 4.0 % 09/05/18 06:55 Lymphocytes % 15.8 09/06/18 07:00 Atypical Lymphs % 3 09/05/18 06:55 Monocytes % 6.4 09/06/18 07:00 Eosinophils % 21.6 09/06/18 07:00 Basophils % 0.3 09/06/18 07:00 Absolute Neutrophils 9.42 k/cumm (1.2-6.7) H 09/06/18 07:00 Absolute Lymphocytes 2.73 k/cumm (1.2-3.4) 09/06/18 07:00 Absolute Monocytes 1.10 k/cumm (0.11-0.7) H 09/06/18 07:00 Absolute Eosinophils 3.73 k/cumm (0.0-0.7) H 09/06/18 07:00 Absolute Basophils 0.05 k/cumm (0.0-0.2) 09/06/18 07:00 Myelocytes 3.0 % 09/05/18 06:55 Differential Comment Manual differential 09/05/18 06:55 RBC Morphology Normal 09/05/18 06:55 ESR 9 MM/HR (0-15) 09/03/18 06:35 Sodium 142 mmol/L (136-145) 09/06/18 07:00 Potassium 4.1 mmol/L (3.5-5.1) 09/06/18 07:00 Chloride 105 mmol/L (98-107) 09/06/18 07:00 Carbon Dioxide 30.4 mmol/L (21.0-32.0) 09/06/18 07:00 Anion Gap 6.6 mmol/L (3-11) 09/06/18 07:00 BUN 7 mg/dL (7-18) 09/06/18 07:00 Creatinine 1.11 mg/dL (0.70-1.30) 09/06/18 07:00 Estimated GFR/1.73 m2 >= 60.00 (mL/min/1.73m2) 09/06/18 07:00 Glucose 97 mg/dL (70-100) 09/06/18 07:00 Lactate 1.2 mmol/L (0.6-1.4) 09/01/18 02:55 Calcium 9.0 mg/dL (8.5-10.1) 09/06/18 07:00 Magnesium 1.8 mg/dL (1.8-2.4) 09/05/18 06:55 Total Bilirubin 0.3 mg/dL (0.2-1.0) 09/06/18 07:00 AST 20 U/L (15-37) 09/06/18 07:00 ALT 30 U/L (12-78) 09/06/18 07:00 Alkaline Phosphatase 84 U/L (46-116) 09/06/18 07:00 C-React Prot High Sens 5.99 mg/L 09/03/18 06:35 Total Protein 6.4 g/dL (6.4-8.2) 09/06/18 07:00 Albumin 2.9 g/dL (3.4-5.0) L 09/06/18 07:00 Lipase 110 U/L (73-393) 09/01/18 02:55 Stool O & P Source (see note) 09/01/18 12:00 Stool O & P Status (see note) 09/01/18 12:00 Tiss Transglutamin IgG <1.2 U/mL 09/03/18 06:35 Tiss Transglutamin IgA <1.2 U/mL 09/03/18 06:35 Ova & Parasite (see note) 09/01/18 12:00 Path Cons Comment See comment 09/05/18 06:55 Documented by User: Raven Leone MD 09/06/18 19:50
--- NOTE | 2018-09-06 14:30 | CHAPLAIN ---
Sarabjit was resting in bed when I visited. He said he feels better at the moment, but did not feel well at all yesterday. He expects to be transferred as early as today. His and son will be in later to visit. Sarabjit is hopes to be able to figure what is making him feel so ill.
--- NOTE | 2018-09-06 15:53 | PDOC.CMPRO ---
Care Management Progress Note S/O: Julio Cesar remains inpatient at this time; he reports his pain is better managed and shared that if transferred, he would require anti-nausea medication prior to transport. He shared no other concerns at this time. A: 37 yo male admitted for diarrhea. P: [place] [facility] [place] home with no services needed when medically cleared for discharge.
[2018-09-06 16:10] VITALS: BP 126/78; PULSE 74; RESP 18; TEMP 37.1; O2SAT 94
--- NOTE | 2018-09-06 16:28 | CMPROGNOTE_ITS ---
Care Management Progress Note S/O: Julio Cesar remains inpatient at this time; he reports his pain is better managed and shared that if transferred, he would require anti-nausea medication prior to transport. He shared no other concerns at this time. A: 37 yo male admitted for diarrhea. P: [place] [facility] [place] home with no services needed when medically cleared for discharge.
[2018-09-06 23:50] VITALS: BP 124/82; PULSE 80; RESP 16; TEMP 36.6; O2SAT 96
[2018-09-07] MEDS: MetroNIDAZOLE 500 MG/100 ML BAG 100 MG IVPB ×4 (00:15→17:08)
[2018-09-07] MEDS: fentaNYL 100 MCG/2 ML VIAL 50 MCG IVP ×6 (01:12→22:30)
[2018-09-07] MEDS: Normal Saline Flush 10 ML SYR IVP ×5 (05:05→17:07)
[2018-09-07] MEDS: Lactated Ringers 1,000 ML 150 ML IV ×2 (05:09→16:11)
[2018-09-07 07:17] LABS: Abs Immature Grans 0.25 k/cumm (0.0-0.09); Absolute Monocyte Count 0.99 k/cumm (0.11-0.7); HGB 14.7 g/dL (13.5-17.5); Mean Corp. HGB Concentration 34.2 g/dL (32.0-36.0); Mean Corpuscular Hemoglobin 29.1 pg (27.0-33.0); Mean Platelet Volume 9.8 fL (8.0-11.0); Platelet Count 220 x1000/uL (130-400); RBC 5.06 m/cumm (4.50-6.00); RBC Distribution Width 13.1 % (11.8-14.1); White Blood Cell Count 14.11 k/cumm (4.4-10.8)
[2018-09-07 07:29] LABS: ALT 34 U/L (12-78); AST 16 U/L (15-37); Albumin 2.9 g/dL (3.4-5.0); Alkaline Phosphatase 83 U/L (46-116); Anion Gap 6.4 mmol/L (3-11); BUN 8 mg/dL (7-18); Bilirubin, Total 0.4 mg/dL (0.2-1.0); CO2 28.6 mmol/L (21.0-32.0); Calcium 8.7 mg/dL (8.5-10.1); Chloride 105 mmol/L (98-107); Glucose 99 mg/dL (70-100); Magnesium 1.9 mg/dL (1.8-2.4); Potassium 4.1 mmol/L (3.5-5.1); Sodium 140 mmol/L (136-145); Total Protein 6.4 g/dL (6.4-8.2)
[2018-09-07 07:40] VITALS: BP 144/86; PULSE 79; RESP 18; TEMP 36.6; O2SAT 93
[2018-09-07 07:47] LABS: Absolute Basophil Count 0.14 k/cumm (0.0-0.2); Absolute Eosinophil Count 1.83 k/cumm (0.0-0.7); Absolute Lymphocyte Count 2.82 k/cumm (1.2-3.4); Absolute Neutrophil Count 8.18 k/cumm (1.2-6.7); Atypical Lymphocytes % 4; Diff Comment Manual Differential; RBC Morphology Normal
[2018-09-07] MEDS: CIPROFLOXACIN 400 MG/200 ML BAG 200 MG IVPB ×2 (08:16→19:35)
[2018-09-07] MEDS: Montelukast 10 MG TAB PO (08:16)
[2018-09-07] MEDS: Loratidine 10 MG TAB PO (08:16)
[2018-09-07] MEDS: Acetaminophen 325 MG TAB 650 MG PO ×2 (08:16→15:14)
[2018-09-07 09:10] VITALS: O2SAT 94
[2018-09-07 11:56] LABS: Campylobacter PCR SEE COMMENTS; Salmonella PCR SEE COMMENTS; Shiga Toxin PCR SEE COMMENTS; Shigella/Enteroinvasive Ecoli SEE COMMENTS
--- NOTE | 2018-09-07 14:47 | PDOC.CMPRO ---
- If Service Date Differs Date of service: 09/07/18 Time of Service: 14:47 Care Management Progress Note S/O: Julio Cesar remains inpatient at this time; he reports his pain is more manageable. He states the pain does come and go and appears to be less in frequency. Julio Cesar does feel that he is improving and states I am so hungry I want to eat a pizza. Provider to follow up with [facility] to determine if patient needs to be transferred if his symptoms continue to improve. If Julio Cesar is to transfer he would require anti-nausea medication prior to transport due to motion sickness. A: 37 yo male admitted for diarrhea, and elevated WBC P: Transfer to [facility] for further care or return home with no services needed when medically cleared for discharge. Remains on IV antibiotics.
--- NOTE | 2018-09-07 14:52 | CMPROGNOTE_ITS ---
- If Service Date Differs Date of service: 09/07/18 Time of Service: 14:47 Care Management Progress Note S/O: Julio Cesar remains inpatient at this time; he reports his pain is more manageable. He states the pain does come and go and appears to be less in frequency. Julio Cesar does feel that he is improving and states I am so hungry I want to eat a pizza. Provider to follow up with [facility] to determine if patient needs to be transferred if his symptoms continue to improve. If Julio Cesar is to transfer he would require anti-nausea medication prior to transport due to motion sickness. A: 37 yo male admitted for diarrhea, and elevated WBC P: Transfer to [facility] for further care or return home with no services needed when medically cleared for discharge. Remains on IV antibiotics.
--- NOTE | 2018-09-07 16:14 | CHAPLAIN ---
When I visited with Sarabjit this morning, he believed the was being transferred to [facility] sometime today, but he remains here at 4:45 p.m. This morning I gave him a prayer shawl to take with him to [facility]. He said he was feeling a bit better at the time we spoke.
[2018-09-07 16:55] VITALS: BP 117/72; PULSE 82; RESP 20; TEMP 37; O2SAT 95
[2018-09-07] MEDS: Ondansetron 4 MG/2 ML VIAL IVP ×2 (17:07→21:52)
--- NOTE | 2018-09-07 18:24 | W.PM.PROGNOT ---
Date of Service Date of service: 09/07/18 Time of Service: 14:20 Assessment and Plan (1) Enterocolitis: Current visit: Yes Status: Acute Improving. Continue IVF, cipro/flagyl, monitoring CBC. Will need outpatient GI f/u. (2) Eosinophilia: Current visit: No Status: Acute Improved. Parasitic studies and flow cytometry pending. Continue to monitor. (3) Diabetes mellitus: Current visit: Yes Status: Chronic Controlled - no change in tx (4) Hypertension: Current visit: Yes Status: Chronic Stable. No change in tx (5) PREM (obstructive sleep apnea): Current visit: Yes Status: Chronic on CPAP at night (6) DVT prophylaxis: Current visit: Yes Status: Acute Not required in a 37 year old ambulatory patient. (7) Discharge planning issues: Current visit: Yes Status: Acute Full code Possible discharge tomorrow Subjective Interval history since last seen: Feels better, requests a white pizza for dinner. Still having diarrhea, but cramping and nausea are better. Denies dizziness, chest pain, shortness of breath. [facility] transfer is on hold since he is improving. Exam Narrative Exam Narrative: General: male, very pleasant, comfortable in bed HEENT: EOMI, MMM Heart: RRR, no m/r/g Lungs: CTAB GI: abdomen soft, no rebound tenderness, mildly tender in BLQ Extremities: no e/c/c BLE's Objective Objective Clinical Data: Abnormal lab results 09/07/18 09/07/18 Range/Units 06:35 06:35 WBC 14.11 H (4.4-10.8) k/cumm Absolute Neutrophils 8.18 H (1.2-6.7) k/cumm Absolute Monocytes 0.99 H (0.11-0.7) k/cumm Absolute Eosinophils 1.83 H (0.0-0.7) k/cumm Albumin 2.9 L (3.4-5.0) g/dL Vital Signs Temperature 37.0 C 09/07/18 16:55 Temperature Source Tympanic 09/07/18 16:55 Pulse 82 09/07/18 16:55 Pulse Rhythm Regular 09/07/18 07:32 Respiratory Rate 20 09/07/18 16:55 Respiratory Effort Non-Labored 09/07/18 07:32 Respiratory Depth Normal 09/07/18 07:32 Respiratory Pattern Normal 09/07/18 07:32 Blood Pressure 117/72 09/07/18 16:55 Blood Pressure Position Sitting 09/01/18 02:41 Pulse Oximetry 95 09/07/18 16:55 Oxygen Delivery Method Room Air 09/07/18 16:55 Oxygen Flow Rate 0 09/07/18 16:55 Pain Level 4 09/07/18 16:55 Intake & Output 09/06/18 09/07/18 09/07/18 23:59 11:59 23:59 Intake Total 2152.0 / 5201.5 3165.0 / 4128.0 963.0 / 4128.0 Balance 2152.0 / 5201.5 3165.0 / 4128.0 963.0 / 4128.0 Intake: IV 1552.0 / 4061.5 2135.0 / 2618.0 483.0 / 2618.0 Oral 600 / 1140 1030 / 1510 480 / 1510 Other: Urine Color Yellow Yellow Urine Appearance Clear Clear Clear Urine Odor None None Comment Pt voiding independently in toilet. Denies sx. Void x1 in the toilet. Void x1 in the toilet. Stool Size Moderate Moderate Moderate Stool Characteristics Soft Soft Soft Liquid Liquid Liquid Brown Brown Voiding Methods Toilet Toilet Toilet Laboratory Results WBC 14.11 k/cumm (4.4-10.8) H 09/07/18 06:35 RBC 5.06 m/cumm (4.50-6.00) 09/07/18 06:35 Hgb 14.7 g/dL (13.5-17.5) 09/07/18 06:35 Hct 43.0 % (40.0-50.0) 09/07/18 06:35 MCV 85.0 fL (80-95) 09/07/18 06:35 MCH 29.1 pg (27.0-33.0) 09/07/18 06:35 MCHC 34.2 g/dL (32.0-36.0) 09/07/18 06:35 RDW 13.1 % (11.8-14.1) 09/07/18 06:35 Plt Count 220 x1000/uL (130-400) 09/07/18 06:35 MPV 9.8 fL (8.0-11.0) 09/07/18 06:35 Immature Gran % See Differential 09/07/18 06:35 Neutrophils % 58.0 09/07/18 06:35 Band Neutrophils % 4.0 % 09/05/18 06:55 Lymphocytes % 16.0 09/07/18 06:35 Atypical Lymphs % 4 09/07/18 06:35 Monocytes % 7.0 09/07/18 06:35 Eosinophils % 13.0 09/07/18 06:35 Basophils % 1.0 09/07/18 06:35 Absolute Neutrophils 8.18 k/cumm (1.2-6.7) H 09/07/18 06:35 Absolute Lymphocytes 2.82 k/cumm (1.2-3.4) 09/07/18 06:35 Absolute Monocytes 0.99 k/cumm (0.11-0.7) H 09/07/18 06:35 Absolute Eosinophils 1.83 k/cumm (0.0-0.7) H 09/07/18 06:35 Absolute Basophils 0.14 k/cumm (0.0-0.2) 09/07/18 06:35 Metamyelocytes 1.0 % 09/07/18 06:35 Myelocytes 3.0 % 09/05/18 06:55 Differential Comment Manual differential 09/07/18 06:35 RBC Morphology Normal 09/07/18 06:35 ESR 9 MM/HR (0-15) 09/03/18 06:35 Sodium 140 mmol/L (136-145) 09/07/18 06:35 Potassium 4.1 mmol/L (3.5-5.1) 09/07/18 06:35 Chloride 105 mmol/L (98-107) 09/07/18 06:35 Carbon Dioxide 28.6 mmol/L (21.0-32.0) 09/07/18 06:35 Anion Gap 6.4 mmol/L (3-11) 09/07/18 06:35 BUN 8 mg/dL (7-18) 09/07/18 06:35 Creatinine 1.00 mg/dL (0.70-1.30) 09/07/18 06:35 Estimated GFR/1.73 m2 >= 60.00 (mL/min/1.73m2) 09/07/18 06:35 Glucose 99 mg/dL (70-100) 09/07/18 06:35 Lactate 1.2 mmol/L (0.6-1.4) 09/01/18 02:55 Calcium 8.7 mg/dL (8.5-10.1) 09/07/18 06:35 Magnesium 1.9 mg/dL (1.8-2.4) 09/07/18 06:35 Total Bilirubin 0.4 mg/dL (0.2-1.0) 09/07/18 06:35 AST 16 U/L (15-37) 09/07/18 06:35 ALT 34 U/L (12-78) 09/07/18 06:35 Alkaline Phosphatase 83 U/L (46-116) 09/07/18 06:35 C-React Prot High Sens 5.99 mg/L 09/03/18 06:35 Total Protein 6.4 g/dL (6.4-8.2) 09/07/18 06:35 Albumin 2.9 g/dL (3.4-5.0) L 09/07/18 06:35 Lipase 110 U/L (73-393) 09/01/18 02:55 Stool Source (see note) 09/04/18 22:00 Stool Campylobacter PCR See comments 09/05/18 16:16 Stool Salmonella PCR See comments 09/05/18 16:16 Stool Shigella PCR See comments 09/05/18 16:16 Stool O & P Source (see note) 09/05/18 13:00 Stool O & P Status (see note) 09/05/18 13:00 Tiss Transglutamin IgG <1.2 U/mL 09/03/18 06:35 Tiss Transglutamin IgA <1.2 U/mL 09/03/18 06:35 Cryptosporidium/Giardia (see note) 09/04/18 22:00 Shiga Toxin (PCR) See comments 09/05/18 16:16 Ova & Parasite (see note) 09/05/18 13:00 Parasite Rprt Status (see note) 09/04/18 22:00 Path Cons Comment See comment 09/05/18 06:55
[2018-09-07 19:56] VITALS: BP 146/79; PULSE 81; RESP 16; TEMP 36.2; O2SAT 95
[2018-09-07 22:13] LABS: CRP, High Sensitivity 7.99 mg/L
[2018-09-07 22:47] LABS: Saccharomyces cerevisiae IgA <10.0 U
[2018-09-08] MEDS: MetroNIDAZOLE 500 MG/100 ML BAG 100 MG IVPB ×3 (00:19→12:03)
[2018-09-08] MEDS: fentaNYL 100 MCG/2 ML VIAL 50 MCG IVP ×2 (01:32→09:33)
[2018-09-08] MEDS: Lactated Ringers 1,000 ML 150 ML IV (02:05)
[2018-09-08 07:26] LABS: Abs Immature Grans 0.16 k/cumm (0.0-0.09); Absolute Basophil Count 0.06 k/cumm (0.0-0.2); Absolute Eosinophil Count 1.34 k/cumm (0.0-0.7); Absolute Lymphocyte Count 2.49 k/cumm (1.2-3.4); Absolute Monocyte Count 1.04 k/cumm (0.11-0.7); Absolute Neutrophil Count 6.55 k/cumm (1.2-6.7); Basophils % 0.5; Eosinophils % 11.5; HGB 14.4 g/dL (13.5-17.5); Immature Grans % 1.4; Lymphocytes % 21.4; Mean Corp. HGB Concentration 33.5 g/dL (32.0-36.0); Mean Corpuscular Hemoglobin 28.5 pg (27.0-33.0); Mean Platelet Volume 10.3 fL (8.0-11.0); Monocytes % 8.9; Neutrophils % 56.3; Platelet Count 217 x1000/uL (130-400); RBC 5.06 m/cumm (4.50-6.00); RBC Distribution Width 13.2 % (11.8-14.1); White Blood Cell Count 11.63 k/cumm (4.4-10.8)
[2018-09-08 07:35] LABS: ALT 30 U/L (12-78); AST 11 U/L (15-37); Albumin 2.9 g/dL (3.4-5.0); Alkaline Phosphatase 83 U/L (46-116); Anion Gap 6.5 mmol/L (3-11); BUN 10 mg/dL (7-18); Bilirubin, Total 0.3 mg/dL (0.2-1.0); CO2 27.5 mmol/L (21.0-32.0); CREATININE 0.94 mg/dL (0.70-1.30); Calcium 8.7 mg/dL (8.5-10.1); Chloride 106 mmol/L (98-107); Glucose 111 mg/dL (70-100); Magnesium 1.9 mg/dL (1.8-2.4); Potassium 4.1 mmol/L (3.5-5.1); Sodium 140 mmol/L (136-145); Total Protein 6.3 g/dL (6.4-8.2)
[2018-09-08 07:50] VITALS: BP 136/79; PULSE 75; RESP 18; TEMP 36.4; O2SAT 97
[2018-09-08] MEDS: Loratidine 10 MG TAB PO (09:16)
[2018-09-08] MEDS: CIPROFLOXACIN 400 MG/200 ML BAG 200 MG IVPB (09:16)
[2018-09-08] MEDS: Montelukast 10 MG TAB PO (09:16)
[2018-09-08] MEDS: Normal Saline Flush 10 ML SYR IVP ×2 (09:17→09:34)
[2018-09-08] MEDS: Ondansetron 4 MG/2 ML VIAL IVP (09:32)
[2018-09-08] MEDS: traMADol 50 MG TAB PO (13:13)
--- NOTE | 2018-09-08 13:41 | DSE_ITS ---
Date of service: 09/08/18 Time of Service: 13:40 DS: Diagnosis Discharge Diagnosis (1) Enterocolitis: Status: Acute (2) Eosinophilia: Status: Acute (3) Diabetes mellitus: Status: Chronic (4) Hypertension: Status: Chronic (5) PREM (obstructive sleep apnea): Status: Chronic Discharge Plan Disposition Patient Disposition: HOME Condition: Improving Discharge Details Reason For Visit: DIARRHEA Admit Date/Time: 09/03/18 15:25 Admit Provider: Kimani Mckeon Attending Provider: Jesus Santos Primary Care Provider: Temo Narvaez [facility] Course Hospital Course: Mr Valdez is a 37 year old male with PMHx of IDDM2, HTN, Hyperlipidemia, PREM, GERD, admitted to [facility] on 09/01/18 for intractable diarrhea, abdominal pain, and nausea/vomiting, which were unmanageable at home. His imaging did not reveal any acute process. His bloodwork did demonstrate impressive eosinophilia, which seemed to correspond to his clinical course. He was empirically treated with ciprofloxacin and flagyl, and he was intravenously hydrated. His workup is partially still pending and was guided by the telephone consult with ID at [facility] (Dr Alva). The patient had negative PCR for salmonella, Shigella, and Campylobacter. His Ova and parasite tests were negative x3; Transglutamin IgG and IgA were negative. C. Diff testing was negative. Testing for ASCA (to r/o atypical Crohn's disease) was negative. At this time, Filaria, Toxocara, and trichinella serologies are pending. GI at [facility] bad been contacted twice and twice felt that the patient would not benefit from a colonoscopy at the time of the acute episode since there was no hemodynamic instability and no blood in stool. Since the patient was so slow to improve and had rising eosinophil counts, we also ordered flow cytometry, which is pending at this time, and did attempt to transfer him to [facility], where he was actually accepted pending bed availability. However, before the transfer could take place, the patient started to improve, with less pain and nausea, decreasing volume of diarrhea, and improved ability to tolerate PO. He is being discharged today with follow up with GI as outpatient and is instructed to complete a 10 day course of ciprofloxacin and flagyl. Additionally, until patient's gastrointestinal status completely normalizes, we are asking him to hold his metformin, bydureon and lantus. His blood sugars while in the hospital have tended to be <110 - it is felt that, perhaps, his diabetes regimen no longer requires insulin. Metformin could be resumed as outpatient once he is better. He is instructed to contact his PCP if he notices his sugars >200 on his BID accuchecks. Home Meds and New Rx's Prescriptions: New metronidazole [Flagyl] 500 mg tablet 500 mg PO QID Qty: 20 RF: 0 ciprofloxacin HCl [Cipro] 250 mg tablet 250 mg PO BID Qty: 10 RF: 0 tramadol 50 mg tablet 50 mg PO Q6H PRN PRN (Reason: prn severe abdominal pain) Qty: 20 RF: 0 promethazine 25 mg tablet 25 mg PO Q6H PRN (Reason: nausea/vomiting) Qty: 10 RF: 0 Continued lisinopril 20 MG tablet 20 mg PO DAILY RF: 0 mometasone [Nasonex] 17 GM spray,non-aerosol 2 spry NS DAILY RF: 0 montelukast 10 MG tablet 10 mg PO DAILY RF: 0 Prilosec OTC 20 MG tablet,delayed release (DR/EC) 20 mg PO DAILY RF: 0 loratadine 10 MG tablet 1 tab PO DAILY RF: 0 Discontinued metformin 500 MG tablet 1,000 mg PO DAILY RF: 0 Bydureon 2 mg/0.65 mL Pen Injector See Rx Instructions .ROUTE .COMPLEX RF: 0 Discharge Instructions Instructions: Dehydration (DC), Gastroenteritis (DC) Additional Instructions: Finish your antibiotics as prescribed. Do not drink alcohol while taking flagyl (metronidazole). You must stop smoking! Bloodwork in 1 week. Return to the hospital with any fever, bleeding, chest pain, or shortness of breath. Follow up with your PCP as scheduled. You would benefit from a visit with gastroenterology as outpatient. Stand Alone Forms: Nursing Discharge Form Referrals: GASTROENTEROLOGY,[facility] [OTHER] - (1-2 weeks) Temo Narvaez [Primary Care Provider] - 09/15/18 10:40 am Activity:: Activity as Tolerated Equipment/Supplies:: No Equipment Needed Diet:: [place] gluten free diabetic diet Discharge Orders Discharge Orders: Discharge Order (Routine); Ordered 09/08/18 Ordered By: Raven Leone Other Ambulatory Orders: Basic Metabolic Panel (Routine) Timeframe: 1 Week Location: Determined by Patient Ordered By: Raven Leone Complete Blood Count w/Diff (Routine) Timeframe: 1 Week Location: Determined by Patient Ordered By: Raven Leone Exam Narrative Exam Narrative: General: male, very pleasant, comfortable in bed, looks better HEENT: EOMI, MMM Heart: RRR, no m/r/g Lungs: CTAB GI: abdomen soft, no rebound tenderness, mildly tender in BLQ Extremities: no e/c/c BLE's DS: Data Vitals/I&O Vitals and I&O: Vital Signs Temperature 36.4 C L 09/08/18 07:50 Temperature Source Tympanic 09/08/18 07:50 Pulse 75 09/08/18 07:50 Pulse Rhythm Regular 09/08/18 09:30 Respiratory Rate 18 09/08/18 07:50 Respiratory Effort Non-Labored 09/08/18 09:30 Respiratory Depth Normal 09/08/18 09:30 Respiratory Pattern Normal 09/08/18 09:30 Blood Pressure 136/79 09/08/18 07:50 Blood Pressure Position Sitting 09/01/18 02:41 Pulse Oximetry 97 09/08/18 07:50 Oxygen Delivery Method Room Air 09/08/18 07:50 Oxygen Flow Rate 0 09/08/18 07:50 Pain Level 3 09/08/18 13:13 Intake & Output 09/07/18 09/08/18 09/08/18 23:59 11:59 23:59 Intake Total 1720.5 / 4885.5 2090.0 / 2210.0 120 / 2210.0 Balance 1720.5 / 4885.5 2090.0 / 2210.0 120 / 2210.0 Intake: IV 1000.5 / 3135.5 2090.0 / 2090.0 Oral 720 / 1750 0 / 120 120 / 120 Other: Urine Color Yellow Yellow Urine Appearance Clear Clear Urine Odor None Normal Comment Void x1 in the toilet. Pt voids ind in bathroom. Stool Size Moderate Stool Characteristics Soft Liquid Brown Voiding Methods Toilet Toilet Completed studies during hospitalization [Text1]: CT abdomen/pelvis: Fluid seen throughout the colon which may be seen in a diarrheal illness. CXR: Normal chest. Pending studies at discharge: Flow cytometry Trichenella, filaria, and toxocara serologies Labs on day of discharge: Labs from last 24 hours 09/08/18 09/08/18 09/07/18 06:40 06:40 06:35 WBC 11.63 H RBC 5.06 Hgb 14.4 Hct 43.0 MCV 85.0 MCH 28.5 MCHC 33.5 RDW 13.2 Plt Count 217 MPV 10.3 Immature Gran % 1.4 Neutrophils % 56.3 Lymphocytes % 21.4 Monocytes % 8.9 Eosinophils % 11.5 Basophils % 0.5 Absolute Neutrophils 6.55 Absolute Lymphocytes 2.49 Absolute Monocytes 1.04 H Absolute Eosinophils 1.34 H Absolute Basophils 0.06 Sodium 140 Potassium 4.1 Chloride 106 Carbon Dioxide 27.5 Anion Gap 6.5 BUN 10 Creatinine 0.94 Estimated GFR/1.73 m2 >= 60.00 Glucose 111 H Calcium 8.7 Magnesium 1.9 Total Bilirubin 0.3 AST 11 L ALT 30 Alkaline Phosphatase 83 C-React Prot High Sens 7.99 Total Protein 6.3 L Albumin 2.9 L S.cerevisiae IgG Ab S.cerevisiae IgA Ab 09/06/18 07:00 WBC RBC Hgb Hct MCV MCH MCHC RDW Plt Count MPV Immature Gran % Neutrophils % Lymphocytes % Monocytes % Eosinophils % Basophils % Absolute Neutrophils Absolute Lymphocytes Absolute Monocytes Absolute Eosinophils Absolute Basophils Sodium Potassium Chloride Carbon Dioxide Anion Gap BUN Creatinine Estimated GFR/1.73 m2 Glucose Calcium Magnesium Total Bilirubin AST ALT Alkaline Phosphatase C-React Prot High Sens Total Protein Albumin S.cerevisiae IgG Ab <10.0 S.cerevisiae IgA Ab <10.0 [facility] Medical History Fatty liver (Chronic) PREM (obstructive sleep apnea) (Chronic) Diabetes mellitus (Chronic) Hypertension (Chronic) GERD (gastroesophageal reflux disease) (Chronic) Leukocytosis (leucocytosis) (Acute) Eosinophilia (Acute) Abdominal pain (Acute) Allergic rhinitis Asthma, moderate persistent Cervical spine disease Diabetes mellitus type II, non insulin dependent Fatty liver disease, nonalcoholic Hyperlipidemia Hypertension Obstructive sleep apnea Tobacco abuse Surgical History Excision, Pilonidal Cyst Social History Smoking/Tobacco Use Status: Current every day
--- NOTE | 2018-09-08 16:05 | PDOC.CMDIS ---
- If Service Date Differs Date of service: 09/08/18 Time of Service: 16:05 LACE Index Scoring Tool - Questions: Length of Stay (in days): 4 - 6 Acuity (Admit via E.D.?): Yes Comorbidities: Diabetes w/o Complication E.D. Visits: 4 - Answers: Total Score: 12 Risk of Readmission: High Risk Care Management Discharge Reason for Hospitalization: Abdominal pain Discharge Plan: Sarabjit is being dicharged home today with a plan to follow up with GI at [facility]. He will complete course of antibiotics and was provided a plan to manage abdominal pain and intermintant nausea. He feels he is ready to be discharged and will transport home with his spouse via private car. Patient/Family Education Needs: Discharged education, limitations and follow up plan of care including self management and ask me three education.
--- NOTE | 2018-09-08 16:10 | CMDISCH_ITS ---
- If Service Date Differs Date of service: 09/08/18 Time of Service: 16:05 LACE Index Scoring Tool - Questions: Length of Stay (in days): 4 - 6 Acuity (Admit via E.D.?): Yes Comorbidities: Diabetes w/o Complication E.D. Visits: 4 - Answers: Total Score: 12 Risk of Readmission: High Risk Care Management Discharge Reason for Hospitalization: Abdominal pain Discharge Plan: Sarabjit is being dicharged home today with a plan to follow up with GI at [facility]. He will complete course of antibiotics and was provided a plan to manage abdominal pain and intermintant nausea. He feels he is ready to be discharged and will transport home with his spouse via private car. Patient/Family Education Needs: Discharged education, limitations and follow up plan of care including self management and ask me three education.
[2018-09-08 16:12] VITALS: BP 136/79; PULSE 71; RESP 18; TEMP 36.7; O2SAT 97
--- NOTE | 2018-09-08 17:58 | NUR.NOTE ---
Nursing Note: Patient A&Ox4. Respirations WNL. Pain 2/10, manageable. Denies any needs at this time. Discharge information reviewed and patient verbalized understanding. arrived to transport home.
[2018-09-09 13:59] LABS: Trichinella Antibody IgG Negative
[2018-09-09 14:00] LABS: Toxocara Antibody, IgG Negative
== END 2018-09-08 16:45 | disposition home or self-care (01) | DRG 392 ==
LOC: ER 06:14 → MS 07:10
PROVIDERS: Internal Medicine; Nurse Practitioner Family; Admitting Provider General Practice; Emergency Provider Emergency Medicine; PCP Family Medicine; Visit Provider Internal Medicine
DX: K52.9 Noninfective gastroenteritis and colitis, unspecified (principal); R65.10 Systemic inflammatory response syndrome (SIRS) of non-infectious origin without acute organ dysfunction; R10.30 Lower abdominal pain, unspecified; D72.1 Eosinophilia; D72.829 Elevated white blood cell count, unspecified; E11.9 Type 2 diabetes mellitus without complications; Z79.4 Long term (current) use of insulin; I10 Essential (primary) hypertension; G47.33 Obstructive sleep apnea (adult) (pediatric); E78.5 Hyperlipidemia, unspecified; F17.210 Nicotine dependence, cigarettes, uncomplicated; K21.9 Gastro-esophageal reflux disease without esophagitis; K76.0 Fatty (change of) liver, not elsewhere classified
CPT/HCPCS: 36415; 80048; 80053; 83690; 85027; 85652; 86141; 86682; 87015; 87210; 87329; 87505; 88185; 96361; 96374; 96375; 96376; 99222; 99232; 99233; 99239; 99285; J1650; 71046; 74174; 74177; 83516; 83605; 83630; 83735; 85007; 85025; 86671; 86784; 87177; 88184; 88189; 99219; 99225; G0378; J0131; J0744; J2405; J3010; J3490; Q9967

== ENCOUNTER 2018-12-26 17:51 | Emergency (ER) | payer BC, SELFPAY ==
[2018-12-26 17:59] VITALS: BP 165/87; PULSE 88; RESP 16; TEMP 36.7; O2SAT 97
--- NOTE | 2018-12-26 18:14 | DI.US_ITS ---
SYMPTOMS/DIAGNOSIS: RIGHT TESTICULAR PAIN FOR 8-1/2 HOURS, ? TORSION TESTICULAR ULTRASOUND: Comparison is made with November,. The testicles are normal in size and echogenicity and show normal blood flow. There is no evidence of torsion or mass. The epididymides are unremarkable. There is a small left spermatocele, not significantly changed. There are small bilateral hydroceles. Normal groin lymph nodes are identified. IMPRESSION: Stable small left spermatocele. Minimal bilateral hydroceles. No evidence of torsion.
[2018-12-26 18:31] LABS: Bilirubin Negative (Negative); Blood Negative (Negative); Clarity Clear; Glucose Negative (Negative); Ketones Negative (Negative); Leukocyte Esterase Negative (Negative); Nitrite Negative (Negative); Specific Gravity 1.025 (1.005-1.025); Urobilinogen 0.2 EU/dL (Up TO 0.2); pH 5.5 (5-8)
--- NOTE | 2018-12-26 18:51 | ED.GENADUL_ITS ---
Discharge Plan Discharge Details Chief Complaint: Abd Prob Primary Care Provider: Temo Narvaez ED Provider: Jef Sandoval Home Meds and New Rx's Prescriptions: No Action lisinopril 20 MG tablet 20 mg PO DAILY RF: 0 mometasone [Nasonex] 17 GM spray,non-aerosol 2 spry NS DAILY RF: 0 montelukast 10 MG tablet 10 mg PO DAILY RF: 0 Prilosec OTC 20 MG tablet,delayed release (DR/EC) 20 mg PO DAILY RF: 0 loratadine 10 MG tablet 1 tab PO DAILY RF: 0 tramadol 50 mg tablet 50 mg PO Q6H PRN PRN (Reason: prn severe abdominal pain) Qty: 20 RF: 0 promethazine 25 mg tablet 25 mg PO Q6H PRN (Reason: nausea/vomiting) Qty: 10 RF: 0 Medical Decision Making 38-year-old male past medical history of hypertension and diabetes presents with acute onset right testicular pain ultrasound was significant for symmetric blood flow to both testes bilateral hydroceles with some internal echoes on the right which raises for blood infectious material or sperm in the left testes there is a question of a round echogenic structure in its 4 mm could be artifact but needs follow-up for repeat imaging and possible urology consult also a cystic structure in the left epididymis which could be an epididymal cyst, there is no right inguinal hernia identified,+ enlarged lymph nodes on the right inguinal canal. The patient continues to have severe pain somewhat improved with IM fentanyl will reach out to [facility] urology for further guidance. Differential diagnosis continues to be testicular torsion versus infection versus hernia versus other. 9:28 PM Case discussed with Dr. lorenzo and at [facility] urology for continued pain and concern for possible testicular torsion despite normal flow on ultrasound patient excepted for urology consult unavailable at [facility] in the [facility] emergency department. Will arrange BLS transfer. Discussed pros and cons of transfer with patient including risk of car accident or unexpected clinical deterioration patient and agree to transfer. Patient stabilized to the best of our ability HPI 38-year-old male past medical history of hypertension and seasonal allergies presents with acute onset right testicular pain around 11 AM today patient was just walking around was not lifting anything no sudden movements pain is progressed throughout the day and is now a 9 out of 10 severe pain with any palpation there no dysuria no discharge.patient has had milder pain on that side in the past once with riding a bike few other times where the pain was transient and resolved on its own without treatment no medical work-up in the past for this can. He has no shortness of breath chest pain nausea vomiting diarrhea LOC. Pain is sharp nonradiating worse with palpation peer General Date/Time Provider Initiated Documentation: 12/26/18 18:02 . Related Data Home Medications Medication Instructions Recorded Confirmed montelukast 10 mg PO DAILY 11/25/12 12/26/18 omeprazole magnesium [PriLOSEC Otc] 20 mg PO DAILY 11/25/12 12/26/18 loratadine 1 tab PO DAILY 12/04/13 12/26/18 lisinopril 20 mg PO DAILY tab-cap 01/30/18 12/26/18 mometasone [Nasonex] 2 spry NS DAILY spray 01/30/18 12/26/18 promethazine 25 mg PO Q6H PRN #10 tab 09/08/18 12/26/18 tramadol 50 mg PO Q6H PRN PRN #20 tab 09/08/18 12/26/18 Previous Rx's Medication Instructions Recorded promethazine 25 mg PO Q6H PRN #10 tab 09/08/18 tramadol 50 mg PO Q6H PRN PRN #20 tab 09/08/18 Allergies Allergy/AdvReac Type Severity Reaction Status Date / Time hydromorphone [From Dilaudid] AdvReac Other (See Unverified 12/26/18 18:05 Comment) morphine AdvReac severe Unverified 12/26/18 18:05 vomiting General Stated Complaint: Abd Prob TERRI: 3 Review of Systems Review of Systems All systems reviewed & are unremarkable except as noted in HPI and below PFSH Social History Smoking/Tobacco Use Status: Current every day Drug use: Never Do you feel safe at home: Yes Do you feel safe in your relationship?: Yes Exam Narrative Exam Narrative: Pulse oximetry reviewed by me and is normal [] Constitutional: Pt is in no acute distress. he is well appearing. he oriented to person, place, and time. Eyes: conjunctivae are normal. Pupils are equal, round, and reactive to light. No scleral icterus. extraocular muscles are intact Ears/Nose/Mouth/Throat: mucus membranes are moist. Musculoskeletal: neck is supple. normal range of motion in all extremities. Cardiovascular: Normal rate and rhythm. No lower extremity edema [] Respiratory: effort is normal . pt exhibits no stridor or respiratory distress. [] GastrointestinaI: abdomen soft, +BS, nontender, -rebound, -guarding. : Right testicle severely tender to palpation even to light touch question of may be some mild edema no scrotal edema no fluid no evidence of hernia no discoloration no lesions normal penis. Neurological: alert and oriented to person, place, and time. he has normal strength, no tremor. Skin: Skin is warm and dry. he is not diaphoretic. Distal perfusion in tact, warm extremities, cap refill ? 2 seconds. Hem/Lymph/Imm: No cervical LAD, no goiter, no conjunctival pallor Psych: normal mood and affect. behavior is normal Triage and nurse notes reviewed.[] Course Vital Signs Temperature 36.7 C 12/26/18 17:59 Pulse 88 12/26/18 17:59 Respiratory Rate 16 12/26/18 17:59 Blood Pressure 165/87 H 12/26/18 17:59 Pulse Oximetry 97 12/26/18 17:59 Temperature 36.7 C 12/26/18 17:59 Temperature Source Temporal Artery Scan 12/26/18 17:59 Pulse 88 12/26/18 17:59 Respiratory Rate 16 12/26/18 17:59 Respiratory Effort Non-Labored 12/26/18 18:01 Blood Pressure 165/87 H 12/26/18 17:59 Blood Pressure Position Sitting 12/26/18 17:59 Pulse Oximetry 97 12/26/18 17:59 Oxygen Delivery Method Room Air 12/26/18 17:59 Oxygen Flow Rate 0 12/26/18 17:59 Pain Level 8 12/26/18 18:03 Lab/Test Results Lab/Test Results: Laboratory Tests Range/Units 12/26/18 18:12 Urine Color (Yellow) Yellow Urine Clarity Clear Urine pH (5-8) 5.5 Ur Specific [place] (1.005-1.025) 1.025 Urine Protein (Negative) mg/dL Negative Urine Ketones (Negative) mg/dL Negative Urine Blood (Negative) Negative Urine Nitrite (Negative) Negative Urine Bilirubin (Negative) Negative Urine Urobilinogen (Up TO 0.2) EU/dL 0.2 Ur Leukocyte Esterase (Negative) Negative Urine Glucose (Negative) mg/dL Negative
[2018-12-26] MEDS: fentaNYL 100 MCG/2 ML VIAL IM (19:07)
--- NOTE | 2018-12-26 20:19 | DI.VRAD_ITS ---
Addendum created by Alina Howell MD on 12/26/2018 8:24:07 PM EDT THIS REPORT CONTAINS FINDINGS THAT MAY BE CRITICAL TO PATIENT CARE. The findings were verbally communicated via telephone conference with NESSA BURROWS at 8:23 PM EDT on 12/26/2018. The findings were acknowledged and understood. Initial report created on 12/26/2018 8:18:49 PM EDT EXAM: US Scrotum and US Duplex Artery and Vein, Scrotum, Complete EXAM DATE/TIME: 12/26/2018 7:47 PM CLINICAL HISTORY: 38 years old, male; Signs and symptoms; Other: Right testicular pain radiating to right inguinal canal since 11 am (8.5 hrs prior to study) TECHNIQUE: Imaging protocol: Real-time ultrasound of the scrotum. Real-time duplex ultrasound scan of the arterial and venous flow of the scrotum with B-mode, color Doppler flow and spectral waveform analysis. Complete exam. COMPARISON: SCROTUM US 11/24/2016 10:12 PM FINDINGS: Right Testicle: Right testis measures 4.5 x 2.4 x 2.8 cm. Left Testicle: Left testis measures 4.4 x 2.1 x 2.8 cm. Image 7:35:36 PM demonstrates a rounded echogenic structure within the left testis, 4 mm. This is only seen on longitudinal images and not on transverse images. Epididymides: Left epididymis measures 1.6 x 1.1 x 1.3 cm. Right epididymis measures 1.3 x 0.9 cm. There is a complex cystic structure in the left epididymis measuring 1.3 cm which could represent a complex epididymal cyst or spermatocele. This previously measured 1.0 cm in maximum dimension and appears to have more internal echoes than on prior exam. Scrotum: There are small bilateral hydroceles. The right hydrocele demonstrates internal echoes. No varicoceles appreciated. Other findings: There is symmetric blood flow to the testes bilaterally. Arterial and venous tracings were obtained. No right inguinal hernia was identified. Multiple prominent/enlarged lymph nodes are seen in the region of the right inguinal canal measuring up to 2.2 cm. IMPRESSION: 1. Symmetric blood flow to the testes bilaterally. 2. Small bilateral hydroceles. The right hydrocele demonstrates internal echoes. This can be seen with blood, infectious material, or sperm. 3. Image 7:35:36 PM demonstrates a rounded echogenic structure within the left testis, 4 mm. Since this is only seen on longitudinal images and not on transverse images, this is favored to represent volume averaging. However, repeat imaging of this region is recommended to exclude underlying lesion. If indicated, this can be done on a nonemergent basis. 4. Complex cystic structure in the left epididymis which could represent a complex epididymal cyst or spermatocele. This has increased slightly in maximum dimension and appears to have more internal echoes than on prior exam. 5. No right inguinal hernia was identified. Multiple prominent/enlarged lymph nodes are seen in the region of the right inguinal canal. This is a nonspecific finding which can be seen with infection, inflammation, or malignancy. For further evaluation of this finding or if symptoms remain concerning, CT scan could be considered. Other findings as above. Dictated and Authenticated by: Alina Howell MD. Ordering:JUDITH Fuchs MD
--- NOTE | 2018-12-26 21:24 | NUR.NOTE ---
Nursing Note: patient resting quietly, continues to have pain , MD aware.
[2018-12-26] MEDS: fentaNYL 100 MCG/2 ML VIAL 50 MCG IVP (22:01)
[2018-12-27 02:52] VITALS: BP 154/84; PULSE 88; RESP 16; O2SAT 97
== END 2018-12-26 22:18 | disposition left against medical advice (07) ==
PROVIDERS: Emergency Provider Emergency Medicine; PCP Family Medicine
DX: R93.811 Abnormal radiologic findings on diagnostic imaging of right testicle (principal); N43.3 Hydrocele, unspecified; I10 Essential (primary) hypertension; E11.9 Type 2 diabetes mellitus without complications
CPT/HCPCS: 96372; 96374; 99285; 76870; 81003; 99284; J3010

== ENCOUNTER 2019-01-31 08:07 | Emergency (ER) | payer BC, SELFPAY ==
[2019-01-31 08:16] VITALS: BP 156/90; PULSE 88; RESP 18; TEMP 37; O2SAT 96
--- NOTE | 2019-01-31 08:18 | ED.GENADUL_ITS ---
Discharge Plan Disposition Patient Disposition: HOME Condition: Stable Discharge Details Chief Complaint: Abd Prob Clinical Impression: Colitis Primary Care Provider: Temo Narvaez ED Provider: Kye Acharya Home Meds and New Rx's Prescriptions: New ciprofloxacin HCl 500 mg tablet 500 mg PO BID Qty: 14 RF: 0 metronidazole [Flagyl] 500 mg tablet 500 mg PO TID Qty: 21 RF: 0 oxycodone 5 mg tablet 5 mg PO Q6H PRN (Reason: pain) Qty: 12 RF: 0 ondansetron HCl 4 mg tablet 4 mg PO QID PRN (Reason: nausea) Qty: 30 RF: 0 prednisone 20 mg tablet 60 mg PO DAILY 4 Days Qty: 12 RF: 0 Continued lisinopril 20 MG tablet 20 mg PO DAILY RF: 0 mometasone [Nasonex] 17 GM spray,non-aerosol 2 spry NS DAILY RF: 0 montelukast 10 MG tablet 10 mg PO DAILY RF: 0 Prilosec OTC 20 MG tablet,delayed release (DR/EC) 20 mg PO DAILY RF: 0 loratadine 10 MG tablet 1 tab PO DAILY RF: 0 tramadol 50 mg tablet 50 mg PO Q6H PRN PRN (Reason: prn severe abdominal pain) Qty: 20 RF: 0 promethazine 25 mg tablet 25 mg PO Q6H PRN (Reason: nausea/vomiting) Qty: 10 RF: 0 Discharge Instructions Instructions: Colitis (ED) Additional Instructions: You have an appointment at 1130 with the general surgery clinic on take 1000mg tylenol and 600mg ibuprofen for pain, if pain is uncontrolled take 1 oxycodone do not drink alcohol or drive if taking oxycodone and do not drink alcohol while taking flagyl Referrals: Teresa Ordonez PA [PHYSICIANS ASSISTANT ACTIVITIES DIRECTOR] - Medical Decision Making 38 yo male with PMHx of IDDM2, HTN, Hyperlipidemia, PREM, GERD,who comes in with worsrening llq abdominal pain with n/v. Denies recent travel, new foods or meds. He localizes the pain to the llq and has tenderness and guarding in this area. He states it is similar to the pain he had in August when he had enterocolitis with eosinophilia. He never had f/u with GI for this and hadn't had pain since yesterday. He has no scrotal pain or tenderness so doubt torsion or orchitis ([place] [facility] [place] urology was not concerned for torsion based on exam and reassuring u/s). given his pain and acute onset will obtain ct imaging to eval for diverticulitis vs colitis vs kidney stone. his is asking for [place] testing as a few days ago he had some myalgias, seems unlikely but will order this at their request. he did have a negative CTA in August with similar symptoms now so doubt mesenteric ischemia at this time pt remains stable, wbc is 15 but otherwise unremarkable lab works, no eosinophilia. Awaiting CT CT shows colitis per Dr. Woo. He remains stable with some tenderness without guarding in the llq. Will start on PO abx and also steroids, given this is his second episode of colitis within a year will refer to general surgery for consult on having a colonoscopy. will d/c and return precautions given Differential Diagnosis colitis, enterocolitis, kidney stone Medical Records Medical records reviewed: Yes I reviewed the patient's medical records. Imaging Data Radiologic Study: Attestation: I personally reviewed and interpreted this imaging study as follows: Imaging: CT Scan Radiologist's impression: colitis per Dr. woo Lab Data Lab results reviewed: Yes I reviewed the patient's lab results. HPI General Mode of arrival: ambulatory . Date/Time Provider Initiated Documentation: 01/31/19 08:11 . Limitations to Documentation: no limitations . Information obtained by: patient . History of Present Illness 38 year old M presents to the emergency department with the chief complaint of abdominal pain, described as moderate and severe, Quality is described as sharp and other (cramping), and is localized to the abdomen. Patient reports no radiation. Patient started experiencing this day(s) (1) and it has been constant. No relieving factors improve symptom(s), No exacerbating factors reported . Patient notes nausea/vomiting. Related Data Home Medications Medication Instructions Recorded Confirmed Prilosec OTC 20 mg PO DAILY 11/25/12 01/31/19 montelukast 10 mg PO DAILY 11/25/12 01/31/19 loratadine 1 tab PO DAILY 12/04/13 01/31/19 lisinopril 20 mg PO DAILY tab-cap 01/30/18 01/31/19 mometasone [Nasonex] 2 spry NS DAILY spray 01/30/18 12/26/18 promethazine 25 mg PO Q6H PRN #10 tab 09/08/18 01/31/19 tramadol 50 mg PO Q6H PRN PRN #20 tab 09/08/18 01/31/19 ciprofloxacin HCl 500 mg PO BID #14 tab 01/31/19 metronidazole [Flagyl] 500 mg PO TID #21 tab 01/31/19 ondansetron HCl 4 mg PO QID PRN #30 tab 01/31/19 oxycodone 5 mg PO Q6H PRN #12 tab 01/31/19 prednisone 60 mg PO DAILY 4 Days #12 tab 01/31/19 Previous Rx's Medication Instructions Recorded promethazine 25 mg PO Q6H PRN #10 tab 09/08/18 tramadol 50 mg PO Q6H PRN PRN #20 tab 09/08/18 ciprofloxacin HCl 500 mg PO BID #14 tab 01/31/19 metronidazole [Flagyl] 500 mg PO TID #21 tab 01/31/19 ondansetron HCl 4 mg PO QID PRN #30 tab 01/31/19 oxycodone 5 mg PO Q6H PRN #12 tab 01/31/19 prednisone 60 mg PO DAILY 4 Days #12 tab 01/31/19 Allergies Allergy/AdvReac Type Severity Reaction Status Date / Time hydromorphone [From Dilaudid] AdvReac Other (See Unverified 01/31/19 08:25 Comment) morphine AdvReac severe Unverified 01/31/19 08:25 vomiting General TERRI: 3 Review of Systems Review of Systems All systems reviewed & are unremarkable except as noted in HPI and below Constitutional Denies chills and Denies fever(s) Cardiovascular Denies chest pain and Denies dyspnea Respiratory Denies cough and Denies dyspnea Genitourinary Denies dysuria Integumentary/Breasts Denies rash PFSH Social History Smoking/Tobacco Use Status: Current every day Tobacco Type: cigarettes Alcohol Intake: current Alcohol Intake frequency: holidays/special occasions o nly Drug use: Never Substance use type: does not use Do you feel safe at home: Yes Do you feel safe in your relationship?: Yes Exam Const General: no acute distress Orientation: alert HENMT Head: normal to inspection Ears: external ears normal General nose exam: external nose normal Mouth: moist mucous membranes Eyes General: appearance normal, both eyes and all related structures Neck Neck: normal visual inspection Resp Effort & Inspection: normal respiratory effort and able to speak in complete sentences Cardio Rate: regular rate GI Palpation: soft Skin General skin exam: no rashes or lesions noted Neuro General: alert and oriented x3 Extrem General: normal to inspection Psych Mental Status: mental status grossly normal
--- NOTE | 2019-01-31 08:24 | DI.CT_ITS ---
SYMPTOM/DIAGNOSIS: LEFT LOWER ABDOMINAL PAIN CT ABDOMEN AND PELVIS: Comparison is made with 05 September 2018. Images were performed from lung bases through the ischial tuberosities after IV and without oral contrast. There is wall thickening and mild stranding in the surrounding fat seen involving the ascending through mid transverse colon. Diverticulosis is noted of the descending and sigmoid colon. There is no evidence of diverticulitis. The appendix appears normal. There is no evidence of free air or free fluid. The lung bases show dependent changes. The liver again shows fatty infiltration. The gallbladder, spleen, pancreas, kidneys, adrenals and urinary bladder are unremarkable. The prostate is normal in size. Vasectomy clips are noted. There is no small bowel or gastric distension. The aorta is normal in diameter. No bony abnormalities are seen. IMPRESSION: Wall thickening and inflammation of the ascending through mid transverse colon, consistent with colitis.
[2019-01-31 08:30] LABS: Bilirubin Small (Negative); Blood Negative (Negative); Clarity Clear; Glucose Negative (Negative); Ketones Negative (Negative); Leukocyte Esterase Negative (Negative); Nitrite Negative (Negative); Specific Gravity >= 1.030 (1.005-1.025); Urobilinogen 0.2 EU/dL (Up TO 0.2)
[2019-01-31] MEDS: Ketorolac 15 MG/ML VIAL IVP (08:33)
[2019-01-31] MEDS: Normal Saline 1,000 ML 1000 ML IV ×2 (08:34→10:00)
[2019-01-31] MEDS: fentaNYL 100 MCG/2 ML VIAL IVP ×2 (08:39→09:54)
[2019-01-31 08:42] LABS: Abs Immature Grans 0.04 k/cumm (0.0-0.09); Absolute Monocyte Count 1.02 k/cumm (0.11-0.7); Basophils % 0.3; Eosinophils % 1.9; HCT 47.9 % (40.0-50.0); HGB 16.6 g/dL (13.5-17.5); Immature Grans % 0.3; Lymphocytes % 15.9; Mean Corp. HGB Concentration 34.7 g/dL (32.0-36.0); Mean Corpuscular Hemoglobin 29.2 pg (27.0-33.0); Mean Corpuscular Volume 84.2 fL (80-95); Mean Platelet Volume 10.5 fL (8.0-11.0); Monocytes % 6.5; Neutrophils % 75.1; Platelet Count 274 x1000/uL (130-400); RBC 5.69 m/cumm (4.50-6.00); RBC Distribution Width 13.2 % (11.8-14.1); White Blood Cell Count 15.64 k/cumm (4.4-10.8)
[2019-01-31 08:43] LABS: Absolute Basophil Count 0.05 k/cumm (0.0-0.2); Absolute Lymphocyte Count 2.49 k/cumm (1.2-3.4); Absolute Neutrophil Count 11.75 k/cumm (1.2-6.7)
[2019-01-31 08:46] LABS: Bacteria Few HPF (Negative); Epithelial Cells Negative HPF (Negative); Other Cells Few Renal (Negative); RBC 0-2 (0-2); WBC 0-2 HPF (0-5)
[2019-01-31 08:47] LABS: Casts Negative LPF (Negative); Crystals Negative HPF (Negative); Mucus Heavy (Negative)
[2019-01-31 08:48] LABS: C & S Indicated? No
[2019-01-31 09:02] LABS: PTT Activated 21.6 sec (21.0-31.4); Prothrombin Time 9.8 sec (9.3-11.0)
[2019-01-31 09:03] LABS: ALT 50 U/L (12-78); AST 14 U/L (15-37); Albumin 3.9 g/dL (3.4-5.0); Alkaline Phosphatase 93 U/L (46-116); BUN 14 mg/dL (7-18); Bilirubin, Total 0.5 mg/dL (0.2-1.0); CREATININE 1.04 mg/dL (0.70-1.30); Calcium 9.4 mg/dL (8.5-10.1); Chloride 102 mmol/L (98-107); Glucose 151 mg/dL (70-100); Lipase 103 U/L (73-393); Magnesium 1.8 mg/dL (1.8-2.4); Potassium 4.5 mmol/L (3.5-5.1); Sodium 139 mmol/L (136-145); Total Protein 7.9 g/dL (6.4-8.2)
[2019-01-31] MEDS: Omnipaque 350 MG/ML 100 ML BTL IV (09:03)
[2019-01-31] MEDS: methylPREDNISolone SUCC 125 MG VIAL IVP (10:22)
[2019-01-31 10:36] VITALS: BP 114/65; PULSE 69; RESP 16; TEMP 36.6; O2SAT 98
[2019-02-03 01:27] LABS: Result Negative (Negative)
== END 2019-01-31 10:36 | disposition home or self-care (01) ==
PROVIDERS: Emergency Provider Emergency Medicine; PCP Family Medicine
DX: K52.9 Noninfective gastroenteritis and colitis, unspecified (principal); K21.9 Gastro-esophageal reflux disease without esophagitis; I10 Essential (primary) hypertension; E11.9 Type 2 diabetes mellitus without complications
CPT/HCPCS: 36415; 80053; 83690; 96361; 96374; 96375; 96376; 99285; 74177; 81003; 81015; 83735; 85025; 85610; 85730; 87798; 99284; J1885; J2930; J3010; J3490

== ENCOUNTER 2019-03-22 08:45 | Day surgery (SDC) | payer BC, SELFPAY ==
[2019-03-22 08:50] VITALS: BP 130/89; PULSE 82; RESP 16; TEMP 36.3; O2SAT 99
[2019-03-22] MEDS: Lactated Ringers 1,000 ML 80 ML IV (09:32)
--- NOTE | 2019-03-22 11:29 | BOWEL_PTH ---
PATIENT: Sarabjit Valdez LOC: JT U#:[id number] AGE/SX: 38/M ROOM: RE03/22/[address]: Debby Luciano MD : 1980 BED: DIS: 03/22/2019 SPEC #: [id number] RECD: 03/22/19 13:07 STATUS: LUIS RE #: [id number] JALEN: 03/22/19 11:[address]: Debby Luciano DEPT: Surgical Specimen RECD BY: Amira Whitlock ENTERED: 03/22/19 13:08 SP TYPE: Bowel OTHR DR: Temo Narvaez Tissues: 1 - BIOPSY BOWEL 2 - BIOPSY BOWEL Procedures: GROSS AND MICRO LEVEL 4 Comments: [id number]
--- NOTE | 2019-03-22 11:41 | W.PM.DSUDISC ---
Discharge Plan Disposition Patient Disposition: HOME Condition: Good Discharge Details Reason For Visit: EGD and colonoscopy Attending Provider: Debby Luciano Primary Care Provider: Temo Narvaez Home Meds and New Rx's Prescriptions: Continued lisinopril 20 MG tablet 20 mg PO DAILY RF: 0 montelukast 10 MG tablet 10 mg PO DAILY RF: 0 Prilosec OTC 20 MG tablet,delayed release (DR/EC) 20 mg PO DAILY RF: 0 loratadine 10 MG tablet 1 tab PO DAILY RF: 0 oxycodone 5 mg tablet 5 mg PO Q6H PRN (Reason: pain) Qty: 12 RF: 0 Discontinued polyethylene glycol 3350 17 gram/dose powder 238 g PO ONCE Qty: 238 RF: 0 bisacodyl [Dulcolax (bisacodyl)] 5 mg tablet,delayed release (DR/EC) 5 mg PO ONCE Qty: 4 RF: 0 Discharge Instructions Additional Instructions: Your EGD was normal Your colonoscopy showed diverticulosis. No inflammation was seen. Biopsies were taken from the colon and my office will contact you with results. Plan for routine colon screening at age 50 unless new symptoms arise. Activity:: Activity as Tolerated Diet:: As Tolerated Discharge Orders Discharge Orders: Discharge Order (Routine); Ordered 03/22/19 Ordered By: Debby Luciano DS: Diagnosis Discharge Diagnosis (1) GERD (gastroesophageal reflux disease): Status: Chronic (2) S/P colonoscopy: Status: Acute (3) Diverticulosis: Status: Acute
[2019-03-22] MEDS: Acetaminophen 325 MG TAB 650 MG PO (12:17)
[2019-03-22 12:20] VITALS: BP 119/76; PULSE 62; RESP 16; TEMP 36.7; O2SAT 98
--- NOTE | 2019-03-25 09:22 | ENDO_ITS ---
DATE OF PROCEDURE: March 24, 2019 PREOPERATIVE DIAGNOSIS: 1. Reflux. 2. Change in bowel habits. 3. Abnormal CT scan of the abdomen. POSTOPERATIVE DIAGNOSIS: 1. Normal EGD. 2. Diverticulosis. PROCEDURE: 1. Esophagogastroduodenoscopy. 2. Colonoscopy with random biopsies. SURGEON: Debby Luciano M.D. ANESTHESIA: Monitored Anesthesia Care. INDICATIONS: This is a 38-year-old man with chronic reflux symptoms. He had also presented to the [facility] with abdominal cramping. He had a CT scan that showed thickening of the ascendin g through mid-transverse colon, consistent with mild colitis. His symptoms had improved following tr eatment with Cipro, Flagyl and prednisone. He has no family history of colon cancer or inflammatory bowel disease. PROCEDURE: The patient was placed in the left lateral decubitus position. Propofol was titrated to sedation. The scope was advanced into his esophagus under direct visualization and down into the sto mach and duodenum. There was no duodenitis or ulcers noted. The stomach itself appeared normal, inc luding on retroflex view of the fundus and lesser curvature. The GE junction was carefully inspected and showed no masses, Thomas's, inflammation or strictures. The air was suctioned from the stomach and the scope withdrawn with no other esophageal lesions found. Digital rectal examination revealed no abnormalities. The scope was advanced to the cecum without di fficulty. The ileocecal valve and appendiceal orifice were clearly identified. The distal ileum was intubated and appeared normal. The patient had no visible inflammation in the colon. I did take bi opsies from the affected areas seen on CT. Random biopsies were performed in the ascending and trans verse colon. The scope was slowly withdrawn with no abnormalities noted in these regions. The sigmo id colon revealed mild to moderate diverticular change. The rectum was normal, including on retrofle x view. He tolerated the procedure well and was stable to recovery. He will need a follow-up screening in ten years or sooner if symptoms indicate. My office will conta ct him with biopsy results. cc: Temo Narvaez M.D.
== END 2019-03-22 12:49 | disposition home or self-care (01) ==
PROVIDERS: PCP Family Medicine; Visit Provider Surgery
PROC: (CPT 45380; principal; 2019-03-22 10:00)
DX: K21.9 Gastro-esophageal reflux disease without esophagitis (principal); R19.4 Change in bowel habit; R93.3 Abnormal findings on diagnostic imaging of other parts of digestive tract; K57.30 Diverticulosis of large intestine without perforation or abscess without bleeding; K52.831 Collagenous colitis; I10 Essential (primary) hypertension
CPT/HCPCS: 45380; 43235; 88305

== ENCOUNTER 2019-07-20 16:05 | Outpatient (REF) | payer BC, SELFPAY ==
[2019-07-20 19:54] LABS: HCT 42.8 % (40.0-50.0); Mean Corpuscular Volume 83.6 fL (80-95); Mean Platelet Volume 11.8 fL (8.0-11.0); Platelet Count 289 x1000/uL (130-400); RBC 5.12 m/cumm (4.50-6.00); RBC Distribution Width 12.7 % (11.8-14.1)
[2019-07-20 20:17] LABS: Albumin 3.5 g/dL (3.4-5.0); Anion Gap 11.7 mmol/L (3-11); Bilirubin, Total 0.9 mg/dL (0.2-1.0); CO2 25.3 mmol/L (21.0-32.0); Chloride 94 mmol/L (98-107); Glucose 325 mg/dL (74-106); Potassium 4.2 mmol/L (3.5-5.1); Sodium 131 mmol/L (136-145)
[2019-07-20 20:33] LABS: Calcium 7.7 mg/dL (8.5-10.1)
[2019-07-20 20:40] LABS: HGB 15.4 g/dL (13.5-17.5); Mean Corpuscular Hemoglobin 30.1 pg (27.0-33.0)
[2019-07-20 21:10] LABS: Alkaline Phosphatase 126 U/L (46-116); BUN 16 mg/dL (7-18)
[2019-07-20 21:25] LABS: Absolute Eosinophil Count 0.25 k/cumm (0.0-0.7); Absolute Lymphocyte Count 2.92 k/cumm (1.2-3.4); Absolute Monocyte Count 1.27 k/cumm (0.11-0.7); Absolute Neutrophil Count 8.26 k/cumm (1.2-6.7)
[2019-07-20 21:26] LABS: RBC Morphology Normal
[2019-07-20 21:27] LABS: Diff Comment Manual Differential
[2019-07-20 21:59] LABS: ALT 91 U/L (16-63); AST 46 U/L (15-37); CREATININE 0.68 mg/dL (0.70-1.30); Total Protein 7.3 g/dL (6.4-8.2)
[2019-07-22 10:25] LABS: Estimated Average Glucose 321 mg/dL; Hemoglobin A1C 12.8 % (<5.7)
== END 2019-07-20 16:25 ==
LOC: NCHCN 16:05
PROVIDERS: Internal Medicine; PCP Family Medicine; Visit Provider Family Medicine
DX: D72.1 Eosinophilia (principal); K76.0 Fatty (change of) liver, not elsewhere classified; E11.9 Type 2 diabetes mellitus without complications
CPT/HCPCS: 80048; 80053; 83036; 85025

== ENCOUNTER 2019-08-27 00:45 | Outpatient (CLI) | payer BC, SELFPAY ==
[2019-08-27 11:18] LABS: ALT 75 U/L (16-63); AST 21 U/L (15-37); Albumin 3.8 g/dL (3.4-5.0); Alkaline Phosphatase 90 U/L (46-116); Anion Gap 10.9 mmol/L (3-11); Bilirubin, Total 0.3 mg/dL (0.2-1.0); CO2 26.1 mmol/L (21.0-32.0); CREATININE 0.75 mg/dL (0.70-1.30); Calcium 9.2 mg/dL (8.5-10.1); Calculated LDL 204 mg/dL; Chloride 106 mmol/L (98-107); Cholesterol 274 mg/dL (<200); Glucose 102 mg/dL (74-106); HDL Cholesterol 29 mg/dL (40-60); Potassium 4.7 mmol/L (3.5-5.1); Sodium 143 mmol/L (136-145); Triglyceride 209 mg/dL (<150)
[2019-08-27 11:37] LABS: BUN 13 mg/dL (7-18)
== END 2019-08-27 01:05 ==
PROVIDERS: Nurse Practitioner Family; PCP Family Medicine; Visit Provider Family Medicine
DX: E78.5 Hyperlipidemia, unspecified (principal); K76.0 Fatty (change of) liver, not elsewhere classified; E87.1 Hypo-osmolality and hyponatremia; E83.51 Hypocalcemia
CPT/HCPCS: 36415; 80053; 80061

== ENCOUNTER 2019-08-29 06:29 | Emergency (ER) | payer BC, SELFPAY ==
[2019-08-29] VITALS (18 sets, daily range): BP systolic 112–142; BP diastolic 59–79; PULSE 82–105; RESP 20; TEMP 36.4; O2SAT 91–100
--- NOTE | 2019-08-29 06:48 | ED.GENADUL_ITS ---
Discharge Plan Disposition Patient Disposition: HOME Condition: Stable Discharge Details Chief Complaint: Abd Prob Clinical Impression: Abdominal pain Primary Care Provider: Temo Narvaez ED Provider: Jazlyn Diehl Home Meds and New Rx's Prescriptions: New budesonide 9 mg tablet,delayed and ext.release 9 mg PO DAILY Qty: 4 RF: 0 magnesium oxide 400 mg (241.3 mg magnesium) tablet 400 mg PO QHS Qty: 30 RF: 0 Continued lisinopril 20 MG tablet 20 mg PO DAILY RF: 0 montelukast 10 MG tablet 10 mg PO DAILY RF: 0 Prilosec OTC 20 MG tablet,delayed release (DR/EC) 20 mg PO DAILY RF: 0 loratadine 10 MG tablet 1 tab PO DAILY RF: 0 ondansetron HCl 4 mg Tablet 4 mg PO Q6H PRNRF: 0 tramadol 50 mg Tablet 50 mg PO Q8H PRNRF: 0 Lantus Solostar U-100 Insulin 100 unit/mL (3 mL) Insulin Pen 20 unit SUBCUT QHS RF: 0 Ozempic 0.25 mg or 0.5 mg(2 mg/1.5 mL) Pen Injector 0.25 mg SUBCUT QWEEK RF: 0 Discharge Instructions Instructions: Budesonide (By mouth), Magnesium (By mouth), Abdominal Pain (ED) Additional Instructions: Please return immediately to the emergency department if you develop any new or worsening symptoms, if your condition does not improve as expected, or if you become otherwise concerned. It is extremely important that you call soon as possible to make an appointment to be seen in follow-up for this visit by your primary care doctor and also by Dr. Luciano this , 09/01/2019 as we discussed. Referrals: Debby Luciano MD [ [facility] STAFF PHYSICIAN] - Temo Narvaez [Primary Care Provider] - Medical Decision Making <Kye Acharya MD - Last Filed: 08/29/19 06:53> 38 yo male with hx of hld, dm, htn, gerd, and prior episode of colitis with eosinophilia last year comes in with acute onset abdominal pain described as sharp and crampy since 330am along with nausea. Denies vomit, fevers, recent travel. Does feel similar to his prior episode he had last year. He does appear in pain on exam with soft abdomen and pain throughout the lower abdomen without guarding, no testicle pain or swelling. Given the degree of pain will obtain lab work and imaging to eval for mesenteric ischemic, pancreatitis, appendicitis among other pathology pt will be signed out to oncoming provider pending results of lab work and imaging Differential Diagnosis Differential Diagnosis: colitis, pancreatitis, diveritulitis, mesenteric ischemia <Jazlyn Diehl MD - Last Filed: 08/29/19 09:47> Sarabjit Valdez is a 38-year-old man with a history of microscopic colitis, GERD, diabetes, hypertension signed out to me at time of shift change by Dr. Acharya with CT abdomen/pelvis pending. CT shows no acute process, likely capsules present in GI tract. Patient does confirm that he has taken capsulated medication within the past 12 hours. Patient states that he has had no GI bleeding: No vomiting blood, stools have been hernandez to yellow in color. On reassessment patient reporting some return of his abdominal pain, though not as severe as upon initial presentation. Plan for re-dose of fentanyl. Reexamination shows mild tenderness palpation across the lower abdomen without focality, no rebound, no guarding. Testicular exam is normal, no edema, tenderness, or mass, no skin changes. Suspect patient's pain is secondary to recurrent colitis at this time. Exam/history is not consistent with acute life- threatening process. Patient has decision-making capacity, is capable of informed consent. I discussed patient history, presentation, results with Dr. Luciano of surgery, who performed patient's colonoscopy. Dr. Luciano recommended budesonide 9 mg once daily, she will see the patient 09/01/2019 as an outpatient. I discussed this plan with patient and his and they are amenable. Patient has tramadol and Zofran at home as was previously prescribed. Plan for Rx budesonide and magnesium for mild hypomagnesemia, which I also discussed with patient and his . I had a lengthy discussion with Patient regarding return to emergency department precautions, home care, and importance of outpatient follow-up. Pt verbalizes understanding of the plan and is amenable. Patient discharged to home with clear plan for outpatient follow-up. All questions were answered. Disposition decision was made weighing the risks and benefits of hospitalization versus outpatient treatment, the risk for further decompensation, and the patient's wishes. Medical Records Medical records reviewed: Yes I reviewed the patient's medical records. Imaging Data Radiologic Study: Attestation: I personally reviewed and interpreted this imaging study as follows: Radiologist's impression: IMPRESSION: 1. Hyperdensities within the colon likely reflect ingested capsules 2. Stable hyperdense focus in the gastric antrum is noted. This does not appear to be a contrast blush. However if a GI bleed, specifically an upper GI bleed if clinically suspected, further evaluation is recommended. Differential would include nonspecific ingested material. 2. There is no evidence for mesenteric ischemia without evidence for wall thickening of the bowel, portal or mesenteric venous gas. . 3. The celiac artery and SMA as well as the ALBA are widely patent. Initial report created on 08/29/2019 8:19:57 AM EST PROCEDURE INFORMATION: Exam: CT Angiography Abdomen and Pelvis With Contrast Exam date and time: 08/29/2019 7:48 AM Age: 38 years old Clinical indication: Other: Lower abd pain, ? mesenteric ischemic TECHNIQUE: Imaging protocol: Computed tomographic angiography of the abdomen and pelvis with intravenous contrast material. 3D rendering: MIP and/or 3D reconstructed images were created by the technologist. Radiation optimization: All CT scans at this facility use at least one of these dose optimization techniques: automated exposure control; mA and/or kV adjustment per patient size (includes targeted exams where dose is matched to clinical indication); or iterative reconstruction. Contrast material: OMNI 350; Contrast volume: 80 ml; Contrast route: IV; COMPARISON: CT ABDOMEN/ PELVIS CTA 09/01/2018 3:21 AM FINDINGS: Aorta: No aortic aneurysm. No aortic dissection. Celiac trunk and mesenteric arteries: The celiac artery and SMA as well as the ALBA are widely patent. Renal arteries: No occlusion or significant stenosis. Right iliac arteries: No occlusion or significant stenosis. Left iliac arteries: No occlusion or significant stenosis. Liver: Hepatic steatosis is present. Gallbladder and bile ducts: Unremarkable. No calcified stones. No ductal dilation. Pancreas: Unremarkable. No mass. No ductal dilation. Spleen: Unremarkable. No splenomegaly. Adrenals: Hyperdense focus in the stomach likely reflects an ingested capsule left adrenal lesion likely adenoma measures 14 mm Kidneys and ureters: Unremarkable. No solid mass. No hydronephrosis. Stomach and bowel: Hypodensities within the colon likely reflect ingested capsule stable hyperdense focus in the gastric antrum is noted. This does not appear to be a contrast blush. However if a GI bleed, specifically an upper GI bleed if clinically suspected, further evaluation is recommended. Differential would include nonspecific ingested material. There is no evidence for mesenteric ischemia without evidence for wall thickening of the bowel, portal or mesenteric venous gas. . Appendix: No evidence of appendicitis. Intraperitoneal space: Unremarkable. No free air. No significant fluid collection. Lymph nodes: Unremarkable. No enlarged lymph nodes. Bladder: Unremarkable. No mass. Reproductive: Unremarkable as visualized. Bones/joints: No acute fracture. No dislocation. Soft tissues: Unremarkable. IMPRESSION: 1. Hypodensities within the colon likely reflect ingested capsule stable hyperdense focus in the gastric antrum is noted. This does not appear to be a contrast blush. However if a GI bleed, specifically an upper GI bleed if clinically suspected, further evaluation is recommended. Differential would include nonspecific ingested material. 2. There is no evidence for mesenteric ischemia without evidence for wall thickening of the bowel, portal or mesenteric venous gas. . 3. The celiac artery and SMA as well as the ALBA are widely patent. Lab Data Lab results reviewed: Yes I reviewed the patient's lab results. HPI <Kye Acharya MD - Last Filed: 08/29/19 06:53> General Mode of arrival: ambulatory . Date/Time Provider Initiated Documentation: 08/29/19 06:32 . Limitations to Documentation: no limitations . Information obtained by: patient . History of Present Illness 38 year old M presents to the emergency department with the chief complaint of abdominal pain, described as severe, and is localized to the abdomen. Patient reports no radiation. Patient started experiencing this hour(s) (3) and it has been constant. No relieving factors improve symptom(s), No exacerbating factors reported . Patient notes nausea/vomiting. Patient did receive the following treatments prior to arrival, none Related Data Home Medications Medication Instructions Recorded Confirmed Prilosec OTC 20 mg PO DAILY 11/25/12 04/04/19 montelukast 10 mg PO DAILY 11/25/12 04/04/19 loratadine 1 tab PO DAILY 12/04/13 04/04/19 lisinopril 20 mg PO DAILY tab-cap 01/30/18 04/04/19 Lantus Solostar U-100 Insulin 20 unit SUBCUT QHS 08/29/19 08/29/19 Ozempic 0.25 mg SUBCUT QWEEK 08/29/19 08/29/19 budesonide 9 mg PO DAILY #4 tab 08/29/19 magnesium oxide 400 mg PO QHS #30 tab 08/29/19 ondansetron HCl 4 mg PO Q6H PRN 08/29/19 08/29/19 tramadol 50 mg PO Q8H PRN 08/29/19 08/29/19 Previous Rx's Medication Instructions Recorded budesonide 9 mg PO DAILY #4 tab 08/29/19 magnesium oxide 400 mg PO QHS #30 tab 08/29/19 Allergies Allergy/AdvReac Type Severity Reaction Status Date / Time hydromorphone [From Dilaudid] AdvReac Other (See Verified 08/29/19 06:37 Comment) morphine AdvReac severe Verified 08/29/19 06:37 vomiting General Stated Complaint: Abd Prob TERRI: 3 Review of Systems <Kye Acharya MD - Last Filed: 08/29/19 06:53> All systems reviewed & are unremarkable except as noted in HPI and below Constitutional Constitutional: Denies chills, Denies fever(s) and Denies weakness ENT Ears, Nose, Mouth, and Throat: Denies change in voice Cardiovascular Cardiovascular: Denies chest pain and Denies dyspnea Respiratory Respiratory: Denies cough and Denies dyspnea Gastrointestinal Gastrointestinal: Denies vomiting Genitourinary Genitourinary: Denies dysuria Integumentary/Breasts Skin/Breast: Denies rash Neurologic Neurologic: Denies weakness PFSH <Kye Acharya MD - Last Filed: 08/29/19 06:53> Social History Smoking/Tobacco Use Status: Current every day Tobacco Type: cigarettes Alcohol Intake: current Alcohol Intake frequency: holidays/special occasions only Drug use: Never Substance use type: does not use Do you feel safe at home: Yes Do you feel safe in your relationship?: Yes Additional Social history: is here with ; interacts appropriately Exam <Kye Acharya MD - Last Filed: 08/29/19 06:53> Const General: other (in pain) Orientation: alert HENIA Head: normal to inspection Ears: external ears normal General nose exam: external nose normal Mouth: moist mucous membranes Eyes General: appearance normal, both eyes and all related structures Neck Neck: normal visual inspection Resp Effort & Inspection: normal respiratory effort and able to speak in complete sentences Cardio Rate: regular rate GI Palpation: soft and tender Skin General skin exam: no rashes or lesions noted Neuro General: alert and oriented x3 Extrem General: normal to inspection Psych Mental Status: mental status grossly normal Course <Kye Acharya MD - Last Filed: 08/29/19 06:53> Vital Signs Vital signs: Vital Signs Temperature 36.4 C L 08/29/19 06:35 Pulse 105 H 08/29/19 06:35 Respiratory Rate 08/29/19 06:35 Blood Pressure 142/79 H 08/29/19 06:35 Pulse Oximetry 100 08/29/19 06:35 Temperature 36.4 C L 08/29/19 06:35 Temperature Source Skin 08/29/19 06:35 Pulse 105 H 08/29/19 06:35 Respiratory Rate 08/29/19 06:35 Respiratory Effort 08/29/19 06:41 Blood Pressure 142/79 H 08/29/19 06:35 Pulse Oximetry 100 08/29/19 06:35 Pain Level 10 08/29/19 06:35 Sign Out <Kye Acharya MD - Last Filed: 08/29/19 06:53> Sign Out Data: Sign Out Comment: abdominal pain, prior colitis, follow up on labs and imaging and disposition Last updated by Kye Acharya MD at 08/29/19 06:55
[2019-08-29 06:52] LABS: BE (Venous) 2.7 mmol/L (-3-3); HCO3 (Venous) 28 mmol/L (22-28); O2 Sat (Venous) 65 % (70-80); TCO2 (Venous) 25 mmol/L (22-29); pCO2 (Venous) 51 mm/Hg (34-47); pH (Venous) 7.35 (7.35-7.45); pO2 (Venous) 32 mm/Hg (28-44)
[2019-08-29] MEDS: Normal Saline 1,000 ML 1000 ML IV ×2 (06:54→09:29)
[2019-08-29] MEDS: Prochlorperazine 10 MG/2 ML VIAL IVP (06:55)
[2019-08-29 06:56] LABS: Lactate 1.5 mmol/L (0.6-1.4)
[2019-08-29] MEDS: fentaNYL 100 MCG/2 ML VIAL IVP ×2 (06:58→09:17)
[2019-08-29 07:00] LABS: Abs Immature Grans 0.03 k/cumm (0.0-0.09); Absolute Basophil Count 0.03 k/cumm (0.0-0.2); Absolute Eosinophil Count 0.29 k/cumm (0.0-0.7); Absolute Lymphocyte Count 2.62 k/cumm (1.2-3.4); Absolute Monocyte Count 0.69 k/cumm (0.11-0.7); Basophils % 0.2; Eosinophils % 2.3; HCT 44.7 % (40.0-50.0); HGB 15.2 g/dL (13.5-17.5); Immature Grans % 0.2 %; Lymphocytes % 20.8; Mean Corpuscular Volume 85.3 fL (80-95); Mean Platelet Volume 9.7 fL (8.0-11.0); Monocytes % 5.5; Platelet Count 320 x1000/uL (130-400); RBC 5.24 m/cumm (4.50-6.00); White Blood Cell Count 12.59 k/cumm (4.4-10.8)
[2019-08-29 07:03] LABS: Absolute Neutrophil Count 8.94 k/cumm (1.2-6.7)
[2019-08-29 07:10] LABS: ALT 75 U/L (16-63); AST 22 U/L (15-37); Albumin 3.6 g/dL (3.4-5.0); Alkaline Phosphatase 88 U/L (46-116); Anion Gap 9.4 mmol/L (3-11); BUN 9 mg/dL (7-18); Bilirubin, Direct 0.08 mg/dL (0.00-0.20); Bilirubin, Total 0.3 mg/dL (0.2-1.0); CO2 27.6 mmol/L (21.0-32.0); CREATININE 0.78 mg/dL (0.70-1.30); Calcium 9.1 mg/dL (8.5-10.1); Chloride 106 mmol/L (98-107); Glucose 139 mg/dL (74-106); Lipase 129 U/L (73-393); Magnesium 1.7 mg/dL (1.8-2.4); Potassium 4.2 mmol/L (3.5-5.1); Sodium 143 mmol/L (136-145); Total Protein 7.1 g/dL (6.4-8.2)
[2019-08-29 07:12] LABS: PTT Activated 24.3 sec (21.0-31.4); Prothrombin Time 10.2 sec (9.3-11.0)
--- NOTE | 2019-08-29 07:42 | DI.CT_ITS ---
EXAM: CT ABDOMEN AND PELVIS CTA CLINICAL HISTORY: LOWER ABDOMINAL PAIN, ?MESENTERIC ISCHEMIC. TECHNIQUE: Imaging Protocol: Axial CT angiography was performed with multislice acquisition and mu ltiplanar and/or 3D reconstructions. CONTRAST MATERIAL: Intravenous: Omnipaque 350 Contrast volume:80 mL Oral: No COMPARISON: CT ABDOMEN PELVIS W from 01/31/2019 FINDINGS: Vascular Structures: Celiac [place]/SMA: No evidence of stenosis. Renal Arteries: No evidence of stenosis. There is a single renal artery perfusing each kidney. Aorta: No aneurysm. No dissection. Pelvis: Iliac Arteries: No evidence of stenosis. Common Femoral Arteries: No evidence of stenosis. Soft Tissues: Lung bases:Normal. Liver: Diffuse fatty infiltration. No measurable mass. Portal, superior mesenteric and splenic veins are patent and unremarkable. No portal venous gas is identified. Gallbladder and biliary tract: No radiodense calculus or dilation. Pancreas: Normal density, no abnormal calcifications or inflammatory process. Spleen: Normal. Kidneys: Normal size, contour and axis. No radiodense stones or obstructive uropathy. No masses seen. Adrenal glands: Stable 1.4 centimeter left adrenal nodule. Unremarkable right adrenal gland. Bladder: Symmetric distention, no gross wall thickening. Bowel: Scattered diverticula in the descending and sigmoid colon. No evidence of acute diverticuliti s. No evidence of bowel obstruction. There is a normal appendix. There is an area of hyperdensity in the gastric antrum. Peritoneal cavity: No ascites, collection or mesenteric inflammatory response. Bones: Within normal limits. Lymph nodes: Within normal limits. IMPRESSION: 1. No findings to suggest mesenteric ischemia. No significant arterial stenosis. 2. Hyperdense focus seen in the gastric antrum. This appears present on the prior examination. Furt her evaluation should be considered if there is concern for gastric bleed. DATA REPOSITORY: All CT scans at this facility are submitted to the National Radiology Data Registry (NRDR) Dose Index Registry (DIR) with the [employer] (ACR). RADIATION OPTIMIZATION: All CT scans at this facility use at least one of these dose optimization te chniques: automated exposure control; mA and/or kV adjustment per patient size (includes targeted exa ms where dose is matched to clinical indication); or iterative reconstruction.
[2019-08-29 07:49] LABS: Bilirubin Negative (Negative); Blood Negative (Negative); Clarity Clear (Clear); Glucose Negative (Negative); Ketones Negative (Negative); Leukocyte Esterase Negative (Negative); Nitrite Negative (Negative); Specific Gravity 1.025 (1.005-1.025); Urobilinogen 0.2 EU/dL (Up TO 0.2); pH 5.5 (5-8)
[2019-08-29] MEDS: Omnipaque 350 MG/ML 100 ML BTL IJ (07:56)
--- NOTE | 2019-08-29 08:20 | DI.VRAD_ITS ---
Addendum created by Prudencio Sexton MD on 08/29/2019 8:21:10 AM EST Correction: IMPRESSION: 1. Hyperdensities within the colon likely reflect ingested capsules 2. Stable hyperdense focus in the gastric antrum is noted. This does not appear to be a contrast blush. However if a GI bleed, specifically an upper GI bleed if clinically suspected, further evaluation is recommended. Differential would include nonspecific ingested material. 2. There is no evidence for mesenteric ischemia without evidence for wall thickening of the bowel, portal or mesenteric venous gas. . 3. The celiac artery and SMA as well as the ALBA are widely patent. Initial report created on 08/29/2019 8:19:57 AM EST PROCEDURE INFORMATION: Exam: CT Angiography Abdomen and Pelvis With Contrast Exam date and time: 08/29/2019 7:48 AM Age: 38 years old Clinical indication: Other: Lower abd pain, ? mesenteric ischemic TECHNIQUE: Imaging protocol: Computed tomographic angiography of the abdomen and pelvis with intravenous contrast material. 3D rendering: MIP and/or 3D reconstructed images were created by the technologist. Radiation optimization: All CT scans at this facility use at least one of these dose optimization techniques: automated exposure control; mA and/or kV adjustment per patient size (includes targeted exams where dose is matched to clinical indication); or iterative reconstruction. Contrast material: OMNI 350; Contrast volume: 80 ml; Contrast route: IV; COMPARISON: CT ABDOMEN/ PELVIS CTA 09/01/2018 3:21 AM FINDINGS: Aorta: No aortic aneurysm. No aortic dissection. Celiac trunk and mesenteric arteries: The celiac artery and SMA as well as the ALBA are widely patent. Renal arteries: No occlusion or significant stenosis. Right iliac arteries: No occlusion or significant stenosis. Left iliac arteries: No occlusion or significant stenosis. Liver: Hepatic steatosis is present. Gallbladder and bile ducts: Unremarkable. No calcified stones. No ductal dilation. Pancreas: Unremarkable. No mass. No ductal dilation. Spleen: Unremarkable. No splenomegaly. Adrenals: Hyperdense focus in the stomach likely reflects an ingested capsule left adrenal lesion likely adenoma measures 14 mm Kidneys and ureters: Unremarkable. No solid mass. No hydronephrosis. Stomach and bowel: Hypodensities within the colon likely reflect ingested capsule stable hyperdense focus in the gastric antrum is noted. This does not appear to be a contrast blush. However if a GI bleed, specifically an upper GI bleed if clinically suspected, further evaluation is recommended. Differential would include nonspecific ingested material. There is no evidence for mesenteric ischemia without evidence for wall thickening of the bowel, portal or mesenteric venous gas. . Appendix: No evidence of appendicitis. Intraperitoneal space: Unremarkable. No free air. No significant fluid collection. Lymph nodes: Unremarkable. No enlarged lymph nodes. Bladder: Unremarkable. No mass. Reproductive: Unremarkable as visualized. Bones/joints: No acute fracture. No dislocation. Soft tissues: Unremarkable. IMPRESSION: 1. Hypodensities within the colon likely reflect ingested capsule stable hyperdense focus in the gastric antrum is noted. This does not appear to be a contrast blush. However if a GI bleed, specifically an upper GI bleed if clinically suspected, further evaluation is recommended. Differential would include nonspecific ingested material. 2. There is no evidence for mesenteric ischemia without evidence for wall thickening of the bowel, portal or mesenteric venous gas. . 3. The celiac artery and SMA as well as the ALBA are widely patent. Dictated and Authenticated by: Prudencio Sexton MD. Ordering:JORDIN Fishman MD
== END 2019-08-29 09:47 | disposition home or self-care (01) ==
PROVIDERS: Emergency Medicine; Emergency Provider Student in an Organized Health Care Education/Training Program; PCP Family Medicine
DX: R10.30 Lower abdominal pain, unspecified (principal); E83.42 Hypomagnesemia; E11.9 Type 2 diabetes mellitus without complications; Z79.4 Long term (current) use of insulin; I10 Essential (primary) hypertension
CPT/HCPCS: 36415; 80053; 82805; 83690; 96361; 96374; 96375; 96376; 99285; 74174; 81003; 82248; 83605; 83735; 85025; 85610; 85730; 99284; J0780; J3010; J3490

== ENCOUNTER 2019-12-12 17:04 | Outpatient (REF) | payer BC, SELFPAY ==
[2019-12-14 09:07] LABS: COVID-19 RT-PCR UVMMC Result Negative (Negative)
== END 2019-12-12 17:24 ==
LOC: NCHCN 17:04
PROVIDERS: PCP Family Medicine; Visit Provider Nurse Practitioner Family
DX: Z11.59 Encounter for screening for other viral diseases (principal)
CPT/HCPCS: U0003

== ENCOUNTER 2020-04-02 11:11 | Emergency (ER) | payer BC, SELFPAY ==
[2020-04-02 11:14] VITALS: BP 155/101; PULSE 98; RESP 16; TEMP 36.6; O2SAT 98
--- NOTE | 2020-04-02 11:46 | ED.GENADUL_ITS ---
Discharge Plan Disposition Patient Disposition: HOME Condition: Stable Discharge Details Chief Complaint: RashLesion Clinical Impression: Abscess of groin, left Primary Care Provider: Temo Narvaez ED Provider: Trinidad Livingston Home Meds and New Rx's Prescriptions: New cephalexin 500 mg capsule 500 mg PO BID 7 Days Qty: 14 RF: 0 No Action lisinopril 20 MG tablet 20 mg PO DAILY RF: 0 montelukast 10 MG tablet 10 mg PO DAILY RF: 0 Prilosec OTC 20 MG tablet,delayed release (DR/EC) 20 mg PO DAILY RF: 0 loratadine 10 MG tablet 1 tab PO DAILY RF: 0 ondansetron HCl 4 mg Tablet 4 mg PO Q6H PRNRF: 0 tramadol 50 mg Tablet 50 mg PO Q8H PRNRF: 0 Lantus Solostar U-100 Insulin 100 unit/mL (3 mL) Insulin Pen 20 unit SUBCUT QHS RF: 0 Ozempic 0.25 mg or 0.5 mg(2 mg/1.5 mL) Pen Injector 0.25 mg SUBCUT QWEEK RF: 0 budesonide 9 mg tablet,delayed and ext.release 9 mg PO DAILY Qty: 4 RF: 0 magnesium oxide 400 mg (241.3 mg magnesium) tablet 400 mg PO QHS Qty: 30 RF: 0 Discharge Instructions Instructions: Abscess (ED) Additional Instructions: Follow up with primary care provider in 3-5 days. Return to ED sooner if any worsening or concerns. Increase oral fluids. Please take Tylenol or Ibuprofen with food every 4-6 hours as needed for pain and swelling. Allow area to air dry daily. Apply cold compresses if needed. Do not soak. Allowed to dry. Take antibiotic as directed return to the ER for any worsening swelling, redness, fever or any concerns. Stand Alone Forms: Work Release Referrals: Temo Narvaez [Primary Care Provider] - Medical Decision Making 1231: Upon further exam due to extreme pain will order labs and a CT abdomen pelvis to rule out greater cellulitis or infection versus abscess. Discussed this with patient who verbalized understanding. Alternatively will be conservative treatment with antibiotics cool compresses and sitz bath's. Labs obtained, 15.22 white blood cell count, 10.36 absolute neutrophils, 3. 45 absolute lymphocytes, urine is negative for leukocytes or nitrites. COMPARISON: CT CT ABDOMEN PELVIS CTA from 08/29/2019 FINDINGS: ABDOMEN: Lung Bases: Normal where visualized. Liver: Severe fatty infiltration. No measurable mass. Gallbladder and biliary tract: No radiodense calculus or dilation. Pancreas: Normal density, no abnormal calcifications or inflammatory process. Spleen: Normal. Kidneys: Normal size, contour and axis. No radiodense stones or obstructive uropathy. No masses seen. Adrenal glands: No masses seen. Abdominal Aorta: Abdominal portion non-dilated. PELVIS: Bladder: Symmetric distention, no gross wall thickening. Bowel: No obstruction or bowel wall thickening. Peritoneal cavity: No ascites, collection or mesenteric inflammatory response. Bones: Within normal limits. Reproductive organs: Within normal limits. Vasectomy clips. Lymph nodes: Unremarkable. Small subcutaneous abscess in the left inguinal crease, measuring 2.4 x 1.4 by 1.3 cm. There is no abnormal soft tissue gas. Impression: 2.5 centimeter abscess in the subcutaneous fat of the left inguinal crease. No acute abnormality is seen within the abdomen or pelvis. Abscess I&D as noted in procedure note above, sterile procedure performed, area infiltrated with 1% lidocaine with epi without difficulty, patient tolerated well, moderate amount of purulent white thick drainage expressed, wound culture obtained and sent for culture. Patient received ceftriaxone 1 g IV piggyback in department. Discussed home care with patient, verbalized understanding. HPI General Mode of arrival: ambulatory . Date/Time Provider Initiated Documentation: 04/02/20 11:24 . Limitations to Documentation: no limitations . Information obtained by: patient . HPI Narrative: 39-year-old male presents to the ER with a chief complaint of a perineal cyst which he noticed yesterday. He reports is on the left side of his groin denies any problems urinating or having problems with bowel movements. Denies any fever chills or any other complaints. He states he has had this before. 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 Denies any recent injuries, bike riding or any increased activity. He describes pain as burning. Does have a history of diverticulosis, enterocolitis, dyslipidemia, fatty liver, diabetes mellitus and hypertension and GERD. He is a current everyday smoker small amount of alcohol denies any drugs. Related Data Home Medications Medication Instructions Recorded Confirmed Prilosec OTC 20 mg PO DAILY 11/25/12 04/04/19 montelukast 10 mg PO DAILY 11/25/12 04/04/19 loratadine 1 tab PO DAILY 12/04/13 04/04/19 lisinopril 20 mg PO DAILY tab-cap 01/30/18 04/04/19 Lantus Solostar U-100 Insulin 20 unit SUBCUT QHS 08/29/19 08/29/19 Ozempic 0.25 mg SUBCUT QWEEK 08/29/19 08/29/19 budesonide 9 mg PO DAILY #4 tab 08/29/19 magnesium oxide 400 mg PO QHS #30 tab 08/29/19 ondansetron HCl 4 mg PO Q6H PRN 08/29/19 08/29/19 tramadol 50 mg PO Q8H PRN 08/29/19 08/29/19 cephalexin 500 mg PO BID 7 Days #14 cap 04/02/20 Previous Rx's Medication Instructions Recorded budesonide 9 mg PO DAILY #4 tab 08/29/19 magnesium oxide 400 mg PO QHS #30 tab 08/29/19 cephalexin 500 mg PO BID 7 Days #14 cap 04/02/20 Allergies Allergy/AdvReac Type Severity Reaction Status Date / Time hydromorphone [From Dilaudid] AdvReac Other (See Verified 04/02/20 11:20 Comment) morphine AdvReac severe Verified 04/02/20 11:20 vomiting General Stated Complaint: RashLesion TERRI: 4 Review of Systems Narrative: Constitutional: Negative for weight loss, alert and oriented, well groomed, normal body habitus, appears comfortable. HEENT: Denies trauma, headaches, blurry vision, nasal discharge, sore throat, trouble swallowing. Chest: Denies chest pain, palpitations, irregular rhythm, hypertension. Respiratory: Denies Shortness of breath, cough, hemoptysis. GI: Denies abdominal pain, nausea, vomiting, diarrhea, constipation. : Denies dysuria, hematuria, flank pain, rectal bleeding. Skin: Reports raised area to his left groin increased tenderness Neuro: Denies dizziness, blurry vision, weakness, syncope, headache or facial numbness. Hematologic: Denies easy bruising, intolerance to heat or cold, hair loss. [facility] Medical History Abdominal pain (Acute) Allergic rhinitis Asthma, moderate persistent Cervical spine disease Colitis (Acute) 03/22/19 Dr Debby Luciano, [facility] Diabetes mellitus (Chronic) Diabetes mellitus type II, non insulin dependent Pt states not anymore Diverticulosis (Acute) Eosinophilia (Acute) Fatty liver (Chronic) GERD (gastroesophageal reflux disease) (Chronic) Hyperlipidemia Hypertension Hypertension (Chronic) Leukocytosis (leucocytosis) (Acute) Microscopic colitis (Acute) Obstructive sleep apnea PREM (obstructive sleep apnea) (Chronic) Tobacco abuse Surgical History Excision, Pilonidal Cyst H/O vasectomy (Acute) Hx of fusion of cervical spine (Acute) February 2018 - S/P colonoscopy (Acute) 03/22/19 Social History Smoking/Tobacco Use Status: Current every day Tobacco Type: cigarettes Alcohol Intake: current Alcohol Intake frequency: holidays/special occasions only Drug use: Never Substance use type: does not use Do you feel safe at home: Yes Do you feel safe in your relationship?: Yes Additional Social history: is here with ; interacts appropriately Exam Narrative Exam Narrative: Constitutional: Alert and oriented x3. Appears stated age. Normal body habitus. Head: Normocephalic, no trauma. Eyes: Pupils PERRLA, Red reflex noted, EOM's intact. Eyelids symmetrical without lesions, discharge, or swelling. ENT: Bilateral TM's WNL, External ear normal to inspection, no mastoid TTP, swelling, or erythema, Nasal turbinates WNL, no nasal discharge. Normal dentition, Posterior pharynx WNL, no exudate. Chest: RRR, Normal S1, S2, distal pulses intact. Resp: Lungs clear to auscultation bilaterally, no wheezes, rales, or rhonchi. : No testicle swelling. Musculoskeletal: Normal gait, 5/5 strength to all four extremities. Skin: Has a approximately 2 cm x 1 cm red raised area which is extremely painful to touch to left groin no area of fluctuance palpated no appreciable surrounding erythema or induration noted, capillary refill less than 2 sec. Neurologic: Cranial nerves II-XII intact. Alert and oriented x 3. DTR's intact. Hematologic/Lymphatic: No ecchymosis, no lymphadenopathy. Course Vital Signs Vital signs: Vital Signs Temperature 36.6 C 04/02/20 11:14 Pulse 98 H 04/02/20 11:14 Respiratory Rate 16 04/02/20 11:14 Blood Pressure 155/101 H 04/02/20 11:14 Pulse Oximetry 98 04/02/20 11:14 Temperature 36.6 C 04/02/20 11:14 Temperature Source Skin 04/02/20 11:14 Pulse 98 H 04/02/20 11:14 Respiratory Rate 16 04/02/20 11:14 Respiratory Effort 04/02/20 11:20 Blood Pressure 155/101 H 04/02/20 11:14 Blood Pressure Position Sitting 04/02/20 11:14 Pulse Oximetry 98 04/02/20 11:14 Oxygen Delivery Method Room Air 04/02/20 11:14 Oxygen Flow Rate 0 04/02/20 11:14 Pain Level 7 04/02/20 11:14 Procedures Abscess I/D Site: Scrotum (groin) Side (if applicable): Left Local Anesthetic: Lidocaine 1% and With Epi Amount of anesthesia used (mL): 1 Technique: Incised with #11 Blade Amount of fluid expressed (mL): 3 Irrigation: No Packing used?: None Complications: Other (none)
--- NOTE | 2020-04-02 12:28 | DI.CT_ITS ---
EXAM: CT ABDOMEN PELVIS W CLINICAL HISTORY: R/o abscess, cellulitis, left groin, PERINEAL LESION,RASH. TECHNIQUE: Imaging Protocol: Axial computed tomography images with coronal and sagittal reformatted images were created and reviewed CONTRAST MATERIAL: Intravenous: Omnipaque 350 Contrast volume:100 cc Oral: no COMPARISON: CT CT ABDOMEN PELVIS CTA from 08/29/2019 FINDINGS: ABDOMEN: Lung Bases: Normal where visualized. Liver: Severe fatty infiltration. No measurable mass. Gallbladder and biliary tract: No radiodense calculus or dilation. Pancreas: Normal density, no abnormal calcifications or inflammatory process. Spleen: Normal. Kidneys: Normal size, contour and axis. No radiodense stones or obstructive uropathy. No masses seen. Adrenal glands: No masses seen. Abdominal Aorta: Abdominal portion non-dilated. PELVIS: Bladder: Symmetric distention, no gross wall thickening. Bowel: No obstruction or bowel wall thickening. Peritoneal cavity: No ascites, collection or mesenteric inflammatory response. Bones: Within normal limits. Reproductive organs: Within normal limits. Vasectomy clips. Lymph nodes: Unremarkable. Small subcutaneous abscess in the left inguinal crease, measuring 2.4 x 1.4 by 1.3 cm. There is no a bnormal soft tissue gas. Impression: 2.5 centimeter abscess in the subcutaneous fat of the left inguinal crease. No acute abnormality is seen within the abdomen or pelvis. RADIATION DOSE DELIVERED: 1,184.14mGy.cm Total DLP DATA REPOSITORY: All CT scans at this facility are submitted to the National Radiology Data Registry (NRDR) Dose Index Registry (DIR) with the [employer] (ACR). RADIATION OPTIMIZATION: All CT scans at this facility use at least one of these dose optimization te chniques: automated exposure control; mA and/or kV adjustment per patient size (includes targeted exa ms where dose is matched to clinical indication); or iterative reconstruction.
[2020-04-02 12:54] LABS: Bilirubin Negative (Negative); Blood Negative (Negative); Clarity Clear (Clear); Glucose Negative (Negative); Ketones Negative (Negative); Leukocyte Esterase Negative (Negative); Nitrite Negative (Negative); Specific Gravity >= 1.030 (1.005-1.025); Urobilinogen 0.2 EU/dL (Up TO 0.2); pH 5.5 (5-8)
[2020-04-02 12:58] LABS: Abs Immature Grans 0.08 10^3/uL (0.0-0.06); Absolute Monocyte Count 0.91 10^3/uL (0.1-0.8); Absolute Neutrophil Count 10.36 10^3/uL (1.2-6.7); Basophils % 0.5; Eosinophils % 2.2; HCT 44.9 % (40.0-50.0); HGB 15.1 g/dL (13.5-17.5); Immature Grans % 0.5; Lymphocytes % 22.7; MCH 29.3 pg (27.0-33.0); MCHC 33.6 % (32.0-36.0); Neutrophils % 68.1; Nucleated RBC 0 %; Platelet Count 267 10^3/uL (130-400); RBC 5.16 10^6/uL (4.36-5.78); RDW-SD 38.5 fL; WBC 15.22 10^3/uL (4.4-10.8)
[2020-04-02 13:00] LABS: Absolute Basophil Count 0.08 10^3/uL (0.0-0.2); Absolute Eosinophil Count 0.33 10^3/uL (0.0-0.7); Absolute Lymphocyte Count 3.45 10^3/uL (1.2-3.4)
[2020-04-02 13:20] LABS: ALT 67 U/L (16-63); AST 24 U/L (15-37); Alkaline Phosphatase 81 U/L (46-116); Anion Gap 8.9 mmol/L (3-11); BUN 11 mg/dL (7-18); Bilirubin, Total 0.4 mg/dL (0.2-1.0); CO2 29.1 mmol/L (21.0-32.0); CREATININE 0.93 mg/dL (0.70-1.30); Calcium 9.2 mg/dL (8.5-10.1); Chloride 102 mmol/L (98-107); Glucose 137 mg/dL (74-106); Potassium 4.1 mmol/L (3.5-5.1); Sodium 140 mmol/L (136-145); Total Protein 7.5 g/dL (6.4-8.2)
[2020-04-02] MEDS: Normal Saline - Diluent 50 ML VIAL IV (13:58)
[2020-04-02] MEDS: Normal Saline Flush 10 ML SYR IVP (13:59)
[2020-04-02] MEDS: Omnipaque 350 MG/ML 100 ML BTL IJ (13:59)
[2020-04-02] MEDS: Ketorolac 30 MG/ML VIAL IVP (14:24)
[2020-04-02] MEDS: LORazepam 2 MG/ML VIAL 0.5 MG IVP (15:00)
[2020-04-02] MEDS: cefTRIAXone 1 GM/50 ML BAG IVPB (15:00)
[2020-04-02 15:37] VITALS: PULSE 75; O2SAT 98
== END 2020-04-02 15:51 | disposition home or self-care (01) ==
PROVIDERS: Emergency Provider Registered Nurse Emergency; PCP Family Medicine
DX: L02.214 Cutaneous abscess of groin (principal); E11.9 Type 2 diabetes mellitus without complications; Z79.4 Long term (current) use of insulin; I10 Essential (primary) hypertension
CPT/HCPCS: 10060; 36415; 80053; 96365; 96375; 99285; 74177; 81003; 85025; 87070; 87205; 99283; J0696; J1885; J2060; J3490

== ENCOUNTER 2020-07-09 20:36 | Outpatient (REF) | payer BC, SELFPAY ==
[2020-07-12 07:30] LABS: Patient Race White; SARS-CoV-2 RNA Undetected (Undetected); SARS-CoV-2 Specimen Source Nasal
== END 2020-07-09 20:56 ==
LOC: NCHCN 20:36
PROVIDERS: PCP Family Medicine; Visit Provider Nurse Practitioner Family
DX: R05 Cough (principal)
CPT/HCPCS: U0003

== ENCOUNTER 2020-09-03 16:28 | Outpatient (REF) | payer BC, SELFPAY ==
[2020-09-04 13:30] LABS: COVID-19 RT-PCR UVMMC Result Negative (Negative)
== END 2020-09-03 16:48 ==
LOC: NCHCN 16:28
PROVIDERS: PCP Family Medicine; Visit Provider Nurse Practitioner Family
DX: Z20.822 Contact with and (suspected) exposure to COVID-19 (principal)
CPT/HCPCS: U0003

== ENCOUNTER 2021-03-02 15:53 | Observation (INO) | payer BC, SELFPAY ==
[2021-03-02] VITALS (79 sets, daily range): BP systolic 86–144; BP diastolic 47–90; PULSE 73–123; RESP 9–32; TEMP 37.3–39.2; O2SAT 90–100
--- NOTE | 2021-03-02 16:00 | RT.EKG_ITS ---
APPROVED REPORT Exam: Resting ECG Reason for Exam: sob Patient Location: E HR:113 bpm ECG Measurements Heart Rate 113 AXIS LA 136 P 47 QRSd 84 QRS 12 QT 292 T 19 QTc 400 Conclusion Sinus tachycardia...rate> 99. No STEMI. I have reviewed and interpreted ECG and agree with software generated interpretation.
--- NOTE | 2021-03-02 16:15 | DI.RAD_ITS ---
Exam(s) XR PORTABLE CHEST AP EXAM: XR PORTABLE CHEST AP CLINICAL HISTORY: Fever, Hx asthma. TECHNIQUE: 2D digital imaging was performed. COMPARISON: CR XR CHEST 2V PA LATERAL from 09/05/2018 FINDINGS: Heart size is normal. The mediastinum is not widened. Lungs are clear. No infiltrates nor obvious pleural effusions. IMPRESSION: No acute pulmonary findings on this single AP portable view of the chest. Surgical hardware noted in the lower cervical spine C6-7 level seen on the upper aspect of the field of view of this study. DATA REPOSITORY: RADIATION DOSE DELIVERED: All CT scans at this facility use at least one of these dose optimization techniques: automated exposure control; mA and/or kV adjustment per patient size (includes targeted e xams where dose is matched to clinical indication); or iterative reconstruction.
--- NOTE | 2021-03-02 16:15 | DI.CT_ITS ---
Exam(s) CT HEAD WO EXAM: CT HEAD WO CLINICAL HISTORY: Headache. TECHNIQUE: Imaging Protocol: Axial computed tomography images with coronal and sagittal reformatted images were created and reviewed COMPARISON: CT HEAD WITHOUT CONTRAST from 03/24/2015 FINDINGS: There are no skull fractures nor fluid in the visualized paranasal sinuses. Mild mucosal thickening is noted in the posterior wall of the partially visualized left maxillary sinus. Also opacification of some of the ethmoidal air cells bilaterally. Sphenoid and frontal sinuses are clear. Mastoid ai r cells are clear. There is no evidence of intracranial hemorrhage, mass effect, or shift of midline structures. There are no extra-axial fluid collections. The ventricles are not enlarged or shifted and there is no blo od within the ventricular system nor within the basal cisterns. IMPRESSION: No acute intracranial findings on this noninfused CT scan of the brain. Mild sinus disease as described above RADIATION DOSE DELIVERED: 769.77mGy.cm Total DLP DATA REPOSITORY: All CT scans at this facility are submitted to the National Radiology Data Registry (NRDR) Dose Index Registry (DIR) with the [employer] (ACR). RADIATION OPTIMIZATION: All CT scans at this facility use at least one of these dose optimization te chniques: automated exposure control; mA and/or kV adjustment per patient size (includes targeted exa ms where dose is matched to clinical indication); or iterative reconstruction.
--- NOTE | 2021-03-02 16:19 | ED.GENADUL_ITS ---
Discharge Plan Disposition Patient Disposition: [facility] Condition: Stable Discharge Details Clinical Impression: Fever, Headache Admit Date/Time: 03/02/21 22:37 Admit Provider: Kimani Forbes Attending Provider: Kimani Forbes Primary Care Provider: Temo Narvaez ED Provider: Trinidad Livingston Discharge Data Discharge Date/Time-TO BE ENTERED AT DEPARTURE: 03/03/21 00:30 Medical Decision Making <Trinidad Livingston - Last Filed: 03/03/21 21:39> 40-year-old male presents to the ER with chief complaint of headache, myalgias, chest pain and fever which began today. Patient reports that he was outside doing some heavy lifting and activity today. Complaining of back pain all day. Per patient is having confused complaining of headache on the way over here. Positive nausea no vomiting no diarrhea. Does have a history of anxiety, asthma, type 2 diabetes, GERD, hypertension, sleep apnea is a daily smoker. Differential diagnosis includes but not limited to heat exhaustion, menningitis, dehydration, UTI Lactate within normal limits, EKG shows sinus tachycardia, CBC shows leukocytosis at 20.92 with a left shift with absolute neutrophils 17.20 CMP shows anion gap 11.4, glucose 119, magnesium 1.6, initial troponin within normal limits less than 0.05. Urine is negative for leukocytes or nitrites. Covid swab is negative. 1914: Patient reevaluation, patient is still complaining of a headache that radiates into his back he is alert and oriented. He is no longer tachycardic. Discussed options of plan of care for lumbar puncture and admission patient verbalized understanding. However patient is requesting to be sedated for the lumbar puncture since he has had approximately of them in his life. CT head largely within normal limits impression shows no acute intracranial pathology. Mild mucosal thickening worse in the ethmoids. Chest x-ray is negative for any acute findings no pleural effusion no pneumothorax. 1917: Hospitalist munira. 1940: Spoke with Dr. Garcia regarding patient case and details he verbalized understanding, he would like to speak after the lumbar puncture. 1958: Requested with Dr. Stapleton regarding lumbar puncture will consent patient f or procedure. LP was performed by Dr. Stapleton as noted in his procedure note above. Awaiting CSF results and probable admission for headache and fever. 2128: Patient c/o SRIVASTAVA Additional Fentanyl 50 mcg IV ordered. Temp 99.2 patient reporting chills. Ibuprofen 600mg PO ordered. Spoke again with Dr. Forbes regarding patient and admission for intractable fever, headache and further evaluation and treatment. He agrees to accept patient for admission and IV antibiotics. 2350: Patient reevaluation, patient is awaiting transfer up to floor bed assignment, he is continuing to complain of headache. Has received ceftriaxone 2 g IV piggyback which is done infusing. Discussed plan of care with who verbalizes understanding and will be going home for the evening. <Sherman Stapleton DO - Last Filed: 03/02/21 20:54> I was asked to perform a lumbar puncture on the patient. Please refer to Bertha Palmer's HPI, physical exam and assessment and plan. 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 Based on information given to me the time of my assessment of the patient lumbar puncture appears to be the appropriate next step in diagnostic evaluation clinically. Discussed risks and benefits fits of the procedure with the patient and his was at bedside. Patient did note a history of severe anxiety and challenge when doing a lumbar puncture secondary to the multiple lumbar punctures he has had. We did elect to utilize Valium understanding the risk and benefits of this. Patient also understands the risk and benefits of utilizing this. 12.5 mg of Valium were used for management of the patient anxious state associated with lumbar puncture. He tolerated this very well, maintained airway during the entire procedure, and had no complications with this. He verbalized throughout the entire procedure he had had a continued GCS of 15 during the procedure with this Valium dosing. Lumbar puncture was performed without complication. Please refer to procedure note for documentation of this. HPI <Trinidad Livingston - Last Filed: 03/03/21 21:39> General Mode of arrival: wheelchair . Date/Time Provider Initiated Documentation: 03/02/21 15:55 . Limitations to Documentation: no limitations . Information obtained by: patient and family () . HPI Narrative: 40-year-old male presents to the ER with chief complaint of headache, myalgias, chest pain and fever which began today. Patient reports that he was outside doing some heavy lifting and activity today. Complaining of back pain all day. Per patient is having confused complaining of headache on the way over here. Positive nausea no vomiting no diarrhea. Does have a history of anxiety, asthma, type 2 diabetes, GERD, hypertension, sleep apnea is a daily smoker. Related Data Home Medications Medication Instructions Recorded Confirmed montelukast 10 mg PO DAILY 11/25/12 03/02/21 omeprazole magnesium [Prilosec OTC] 20 mg PO DAILY 11/25/12 03/02/21 loratadine 1 tab PO DAILY 12/04/13 03/02/21 lisinopril 20 mg PO DAILY tab-cap 01/30/18 03/02/21 Lantus Solostar U-100 Insulin 20 unit SUBCUT QHS 08/29/19 08/29/19 Ozempic 0.25 mg SUBCUT QWEEK 08/29/19 08/29/19 budesonide 9 mg PO DAILY #4 tab 08/29/19 magnesium oxide 400 mg PO QHS #30 tab 08/29/19 03/02/21 ondansetron HCl 4 mg PO Q6H PRN 08/29/19 08/29/19 tramadol 50 mg PO Q8H PRN 08/29/19 08/29/19 atorvastatin 40 mg PO DAILY 03/02/21 03/02/21 fluticasone propion-salmeterol inh INHALATION BID 03/02/21 [Wixela Inhub] metformin 1,000 mg PO DAILY 03/02/21 03/02/21 sitagliptin [Januvia] 50 mg PO QHS 03/02/21 03/02/21 Previous Rx's Medication Instructions Recorded budesonide 9 mg PO DAILY #4 tab 08/29/19 magnesium oxide 400 mg PO QHS #30 tab 08/29/19 Allergies Allergy/AdvReac Type Severity Reaction Status Date / Time hydromorphone [From Dilaudid] AdvReac Other (See Verified 03/02/21 16:15 Comment) morphine AdvReac severe Verified 03/02/21 16:15 vomiting General Stated Complaint: Fever TERRI: 2 Review of Systems <Trinidad Livingston - Last Filed: 03/03/21 21:39> Narrative: Constitutional: Negative for weight loss, alert and oriented, well groomed, normal body habitus, appears uncomfortable. Positive fever HEENT: Denies trauma, blurry vision, nasal discharge, sore throat, trouble swallowing. Chest: Denies palpitations, irregular rhythm, hypertension. Positive chest pain Respiratory: Denies Shortness of breath, cough, hemoptysis. GI: Denies abdominal pain, vomiting, diarrhea, constipation. Positive nausea. : Denies dysuria, hematuria, flank pain, rectal bleeding. Neuro: Denies dizziness, blurry vision, weakness, syncope, or facial numbness. Positive headache, confusion Hematologic: Denies easy bruising, intolerance to heat or cold, hair loss. PFSH <Trinidad Livingston - [facility] Filed: 03/03/21 21:39> Medical History (Updated 03/03/21 @ 15:06 by Ronnell Case MD) Abdominal pain Allergic rhinitis Asthma, moderate persistent Cervical spine disease Colitis 03/22/19 Dr Debby Luciano, [facility] Diabetes mellitus Diabetes mellitus type II, non insulin dependent Pt states not anymore Diverticulosis Eosinophilia Fatty liver GERD (gastroesophageal reflux disease) Hyperlipidemia Hypertension Hypertension Leukocytosis (leucocytosis) Microscopic colitis Obstructive sleep apnea PREM (obstructive sleep apnea) Tobacco abuse Surgical History Excision, Pilonidal Cyst H/O vasectomy Hx of fusion of cervical spine February 2018 - [facility] S/P colonoscopy 03/22/19 Social History Smoking/Tobacco Use Status: Current every day Tobacco Type: cigarettes Smoking risk assessment performed?: Yes Alcohol Intake: current Alcohol Intake frequency: holidays/special occasions only Drug use: Never Substance use type: does not use Do you feel safe at home: Yes Do you feel safe in your relationship?: Yes Additional Social history: is here with ; interacts appropriately Exam <Trinidad Livingston - [facility] Filed: 03/03/21 21:39> Narrative Exam Narrative: Constitutional: Alert and oriented x3. Appears stated age. Normal body habitus.Flushed Head: Normocephalic, no trauma. Eyes: Pupils PERRLA, Red reflex noted, EOM's intact. Eyelids symmetrical without lesions, discharge, or swelling. ENT: Bilateral TM's WNL, External ear normal to inspection, no mastoid TTP, swelling, or erythema, Nasal turbinates WNL, no nasal discharge. Normal dentition, Posterior pharynx WNL, no exudate. Chest: RRR, Normal S1, S2, distal pulses intact. Resp: Lungs clear to auscultation bilaterally, no wheezes, rales, or rhonchi. Abdomen: Soft, non-distended, Non-tender to palpation Musculoskeletal: Unable to assess gait, 5/5 strength to all four extremities. Skin: No suspicious rashes or lesions. Capillary refill less than 2 sec. Neurologic: Cranial nerves II-XII intact. Alert and oriented x 3. DTR's intact. Hematologic/Lymphatic: No ecchymosis, no lymphadenopathy. Course <Trinidad Livingston - Last Filed: 03/03/21 21:39> Vital Signs Vital signs: Vital Signs Temperature 38.9 C H 03/02/21 16:06 Pulse 113 H 03/02/21 16:06 Blood Pressure 144/90 H 03/02/21 16:06 Pulse Oximetry 98 03/02/21 16:06 Temperature 38.9 C H 03/02/21 16:06 Temperature Source Temporal Artery Scan 03/02/21 16:06 Pulse 113 H 03/02/21 16:06 Blood Pressure 144/90 H 03/02/21 16:06 Blood Pressure Position Supine 03/02/21 16:06 Pulse Oximetry 98 03/02/21 16:06 Oxygen Delivery Method Room Air 03/02/21 16:06 Oxygen Flow Rate 0 03/02/21 16:06 Pain Level 9 03/02/21 16:06 <Sherman Stapleton DO - Last Filed: 03/02/21 20:54> Lumbar Puncture Time Out Performed: Yes Patient Position: right lateral decubitus Skin Prep: Povidone-Iodine 1% Local Anesthetic: Lidocaine 1% Amount of anesthesia used (mL): 4 Spinal Needle Gauge: 20G Interspace Used: L3-L4 Fluid Initially Obtained: clear Complications: none
[2021-03-02 16:26] LABS: Lactate 1.1 mmol/L (0.6-1.4)
[2021-03-02 16:31] LABS: Abs Immature Grans 0.11 10^3/uL (0.0-0.06); Absolute Basophil Count 0.08 10^3/uL (0.0-0.2); Basophils % 0.4; Eosinophils % 0.6; HGB 14.4 g/dL (13.5-17.5); Immature Grans % 0.5; Lymphocytes % 9.8; MCH 28.8 pg (27.0-33.0); MCHC 32.7 % (32.0-36.0); MPV 10.2 fL (8.0-11.0); Monocytes % 6.5; Neutrophils % 82.2; Nucleated RBC 0 %; Platelet Count 263 10^3/uL (130-400); RDW-SD 42.2 fL; WBC 20.92 10^3/uL (4.4-10.8)
[2021-03-02 16:34] LABS: Absolute Eosinophil Count 0.13 10^3/uL (0.0-0.7); Absolute Lymphocyte Count 2.05 10^3/uL (1.2-3.4); Absolute Monocyte Count 1.36 10^3/uL (0.1-0.8)
[2021-03-02] MEDS: ACETAMINOPHEN 1,000 MG/100 ML BTL 400 MG IVPB (16:37)
[2021-03-02] MEDS: Normal Saline 1,000 ML 1000 ML IV ×2 (16:37→18:39)
[2021-03-02 16:50] LABS: Bilirubin Negative (Negative); Blood Negative (Negative); Clarity Clear (Clear); Glucose Negative (Negative); Ketones Negative (Negative); Leukocyte Esterase Negative (Negative); Nitrite Negative (Negative); Specific Gravity 1.025 (1.005-1.025)
[2021-03-02 16:51] LABS: ALT 47 U/L (16-63); AST 16 U/L (15-37); Albumin 4.1 g/dL (3.4-5.0); Alkaline Phosphatase 74 U/L (46-116); Anion Gap 11.4 mmol/L (3-11); BUN 15 mg/dL (7-18); Bilirubin, Total 0.5 mg/dL (0.2-1.0); CO2 25.6 mmol/L (21.0-32.0); CREATININE 1.1 mg/dL (0.70-1.30); Calcium 9.2 mg/dL (8.5-10.1); Chloride 103 mmol/L (98-107); Glucose 119 mg/dL (74-106); Magnesium 1.6 mg/dL (1.8-2.4); Potassium 4.2 mmol/L (3.5-5.1); Sodium 140 mmol/L (136-145); Total Protein 7.8 g/dL (6.4-8.2)
[2021-03-02 16:52] LABS: Troponin I < 0.05 ng/mL (<0.06)
[2021-03-02] MEDS: Ketorolac 30 MG/ML VIAL IVP (16:59)
[2021-03-02 17:25] LABS: Source Nasal/Nares
--- NOTE | 2021-03-02 18:45 | DI.VRAD_ITS ---
PROCEDURE INFORMATION: Exam: XR Chest Exam date and time: 03/02/2021 4:20 PM Age: 40 years old Clinical indication: Other: Fever, history of asthma, pui TECHNIQUE: Imaging protocol: XR of the chest. Views: 1 view. COMPARISON: CR XR CHEST 2V PA LATERAL 09/05/2018 2:34 PM FINDINGS: Lungs: Unremarkable. No consolidation. Pleural spaces: Unremarkable. No pleural effusion. No pneumothorax. Heart/Mediastinum: Unremarkable. No cardiomegaly. Bones/joints: Unremarkable. IMPRESSION: No acute findings. Dictated and Authenticated by: Vernon Goldsmith MD. Ordering:KVNG Abdi MD
--- NOTE | 2021-03-02 18:45 | DI.VRAD_ITS ---
PROCEDURE INFORMATION: Exam: CT Head Without Contrast Exam date and time: 03/02/2021 4:20 PM Age: 40 years old Clinical indication: Other: Headache TECHNIQUE: Imaging protocol: Computed tomography of the head without contrast. Radiation optimization: All CT scans at this facility use at least one of these dose optimization techniques: automated exposure control; mA and/or kV adjustment per patient size (includes targeted exams where dose is matched to clinical indication); or iterative reconstruction. COMPARISON: CT HEAD WITHOUT CONTRAST 03/24/2015 2:48 PM FINDINGS: Brain: Normal. No hemorrhage. Unremarkable white matter. No mass effect. Cerebral ventricles: No ventriculomegaly. Paranasal sinuses: Mild mucosal thickening seen worst in the ethmoids. Mastoid air cells: Visualized mastoid air cells are well aerated. Bones/joints: Unremarkable. No acute fracture. Soft tissues: Unremarkable. IMPRESSION: 1. No acute intracranial pathology. 2. Mild mucosal thickening seen worst in the ethmoids. Dictated and Authenticated by: Vernon Goldsmith MD. Ordering:KVNG Abdi MD
[2021-03-02 19:05] LABS: COVID-19 PCR Negative (Negative)
[2021-03-02] MEDS: fentaNYL 100 MCG/2 ML VIAL 50 MCG IVP ×2 (19:22→21:36)
[2021-03-02 19:53] LABS: Troponin I < 0.05 ng/mL (<0.06)
[2021-03-02] MEDS: diazePAM 10 MG/2 ML SYR 5 MG IVP ×4 (20:18→20:45)
[2021-03-02] MEDS: MAGNESIUM SULFATE 1 GM/100 ML BAG IVPB (21:00)
[2021-03-02] MEDS: Ondansetron 4 MG/2 ML VIAL IVP (21:00)
[2021-03-02 21:42] LABS: Clarity Clear; RBC 1 /mm3 (0-5); Tube # 4; WBC 4 /uL (0-5); Xanthochromia Absent
[2021-03-02 21:51] LABS: Glucose (CSF) 71 mg/dL (40-70); Total Protein (CSF) 41 mg/dL (15-45)
[2021-03-02] MEDS: Ibuprofen 600 MG TAB PO (21:57)
--- NOTE | 2021-03-02 22:30 | DI.RAD_ITS ---
Exam(s) XR CHEST 1V IN DI DEPT EXAM: XR CHEST 1V IN DI DEPT CLINICAL HISTORY: R/O Pneumonia. TECHNIQUE: 2D digital imaging was performed. COMPARISON: CR,XR XR PORTABLE CHEST AP from 03/02/2021 FINDINGS: Heart size is normal. The mediastinum is not widened. Lungs are clear. No infiltrates nor obvious pleural effusions. Fusion hardware is noted in the lower cervical spine. IMPRESSION: No acute pulmonary findings on this single AP portable view of the chest. DATA REPOSITORY: RADIATION DOSE DELIVERED: All CT scans at this facility use at least one of these dose optimization techniques: automated exposure control; mA and/or kV adjustment per patient size (includes targeted e xams where dose is matched to clinical indication); or iterative reconstruction.
--- NOTE | 2021-03-02 22:55 | W.PM.HP.N ---
Date of service: 03/02/21 Time of Service: 22:55 Assessment and Plan Assessment and plan (1) Fever: Start date: 03/02/21 Status: Acute Assessment and plan: This is a 40-year-old gentleman who presents with mostly fever and headache with some suggestion of neck discomfort but mostly headache over his sinus areas with mucosal swelling in the ethmoid sinuses but no abscess. It is possible he has significant sinusitis as a source of fever but he also has respiratory findings with a history of asthma and continued smoking with possible early pneumonia. Chest x-ray was unrevealing. CT scan of the chest was not performed. Patient will be treated symptomatically with Tylenol for fever, fentanyl for pain and headache and was initiated on Rocephin 2 g IV daily with doxycycline 100 mg twice daily pending LP cultures and evaluation as well as blood cultures. Patient will hydrate orally and continue IV hydration. Qualifiers: Fever type: due to other condition Qualified Code(s): R50.81 - Fever presenting with conditions classified elsewhere (2) Headache: Start date: 03/02/21 Status: Acute Assessment and plan: Patient does not appear to have meningitis but sinus headache and possibly headache from acute infection with fever. Is managing with fentanyl IV as needed with Tylenol for fever and headache as well. Qualifiers: Headache chronicity pattern: acute headache Headache type: unspecified Intractability: intractable Qualified Code(s): R51.9 - Headache, unspecified (3) Cough: Start date: 03/02/21 Status: Acute Assessment and plan: Patient has a history of asthma and is still smoking tobacco. Albuterol nebulizers and continue Symbicort with patient taking Advair at home. Follow-up imaging if indicated with patient being treated for possible me acquired pneumonia with presentation of fever and elevated WBCs. This could be a viral phenomenon and if cultures resolve and symptoms resolved will treat symptomatically. (4) Diabetes mellitus: Status: Chronic Assessment and plan: Hold usual outpatient medical therapy and advanced diabetic diet. Glucometers with insulin coverage while hospitalized. 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 Qualifiers: Hypertension type: primary hypertension Qualified Code(s): I10 - Essential (primary) hypertension History of Present Illness History of Present Illness Chief Complaint: Headache with fever Narrative: This is a 40-year-old male patient who is in the ED with a chief complaint of myalgias with chest discomfort, fever and headache which began the day of presentation. He has been doing some heavy lifting outside and activity with cooking chicken on the grill or an event over the weekend. 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 He also has a type II diabetic with history of hypertension but no cardiac history. He says that his headache was causing some slight confusion and with his fever he has rigors. He denies any significant neck pain but did have some discomfort over his neck and lumbar puncture in the ED was negative. In the ED he was found to have significant fever, elevation of his WBC over 20,000 and significant headache which required fentanyl IV for pain control. The patient has had no GI symptoms with no nausea or vomiting and no diarrhea. He has no focal neurological complaints. He denies hemoptysis. He does have sinus pressure over his eyes and forehead. The patient does have significant history of sleep apnea. He is overweight. Review of Systems Narrative: 13 point review of systems otherwise unrevealing or stable. [facility] Medical History (Updated 03/03/21 @ 12:39 by Kimani Forbes) Abdominal pain Allergic rhinitis Asthma, moderate persistent Cervical spine disease Colitis 03/22/19 Dr Debby Luciano, [facility] Diabetes mellitus Diabetes mellitus type II, non insulin dependent Pt states not anymore Diverticulosis Eosinophilia Fatty liver GERD (gastroesophageal reflux disease) Hyperlipidemia Hypertension Hypertension Leukocytosis (leucocytosis) Microscopic colitis Obstructive sleep apnea PREM (obstructive sleep apnea) Tobacco abuse Surgical History Excision, Pilonidal Cyst H/O vasectomy Hx of fusion of cervical spine February 2018 - [facility]onia Reynosok Day S/P colonoscopy 03/22/19 Social History Smoking/Tobacco Use Status: Current every day Tobacco Type: cigarettes Smoking risk assessment performed?: Yes Alcohol Intake: current Alcohol Intake frequency: holidays/special occasions only Drug use: Never Substance use type: does not use Do you feel safe at home: Yes Do you feel safe in your relationship?: Yes Additional Social history: is here with ; interacts appropriately Meds Allergies and Home Medications Allergies Allergy/AdvReac Type Severity Reaction Status Date / Time hydromorphone [From Dilaudid] AdvReac Other (See Verified 03/02/21 16:15 Comment) morphine AdvReac severe Verified 03/02/21 16:15 vomiting Home Medications Medication Instructions Recorded Confirmed Type montelukast 10 mg PO DAILY 11/25/12 03/02/21 History omeprazole magnesium [Prilosec OTC] 20 mg PO DAILY 11/25/12 03/02/21 History loratadine 1 tab PO DAILY 12/04/13 03/02/21 History lisinopril 20 mg PO DAILY tab-cap 01/30/18 03/02/21 History Lantus Solostar U-100 Insulin 20 unit SUBCUT QHS 08/29/19 08/29/19 History Ozempic 0.25 mg SUBCUT QWEEK 08/29/19 08/29/19 History budesonide 9 mg PO DAILY #4 tab 08/29/19 Rx magnesium oxide 400 mg PO QHS #30 tab 08/29/19 03/02/21 Rx ondansetron HCl 4 mg PO Q6H PRN 08/29/19 08/29/19 History tramadol 50 mg PO Q8H PRN 08/29/19 08/29/19 History atorvastatin 40 mg PO DAILY 03/02/21 03/02/21 History fluticasone propion-salmeterol inh INHALATION BID 03/02/21 History [Wixela Inhub] metformin 1,000 mg PO DAILY 03/02/21 03/02/21 History sitagliptin [Januvia] 50 mg PO QHS 03/02/21 03/02/21 History Exam Narrative Exam Narrative: General: Patient appears older than stated age, in moderate distress from his headache with his eyes closed. He moves slowly. He is alert and oriented x3. HEENT: Normocephalic, eyes with pupils equal and reactive to light symmetrically, extraocular movement intact and sclera anicteric. Oropharynx with dry mucosa and fair dentition. There is tenderness to palpation over the frontal and maxillary sinus area as well as over the medial aspect below the eyes. There is no swelling over these areas. Nasal mucosa is erythematous but no nasal discharge. Neck: Supple without JVD. Lungs: Bronchovesicular breath sounds diffusely with inspiratory coarse crackles nonfocalizing and expiratory rhonchi with slight expiratory wheeze especially with cough. Fair aeration diffusely. No dullness to percussion. Heart: Regular rate and rhythm with no murmurs or gallops appreciated. Abdomen: Obese contour, soft nontender to palpation with no focalizing guarding. No palpable hepatosplenomegaly. Genitalia/rectal: Exam deferred. Extremities: Without clubbing, cyanosis or pitting edema. Peripheral pulses intact. Skin: Normal color with multiple tattoos, warm to touch and dry. Normal turgor. Dr. Child was exposed areas. Neuro: Cranial nerves II to XII grossly intact, no focalizing motor deficits. No meningismus. Psych: Flattened affect with depressed mood, no abnormal thought processes. Remote and recent memory intact. Speech monotonous and slow. Results Imaging Imaging Studies: Exam: CT Head Without Contrast Exam date and time: 03/02/2021 4:20 PM Age: 40 years old Clinical indication: Other: Headache TECHNIQUE: Imaging protocol: Computed tomography of the head without contrast. Radiation optimization: All CT scans at this facility use at least one of these dose optimization techniques: automated exposure control; mA and/or kV adjustment per patient size (includes targeted exams where dose is matched to clinical indication); or iterative reconstruction. COMPARISON: CT HEAD WITHOUT CONTRAST 03/24/2015 2:48 PM FINDINGS: Brain: Normal. No hemorrhage. Unremarkable white matter. No mass effect. Cerebral ventricles: No ventriculomegaly. Paranasal sinuses: Mild mucosal thickening seen worst in the ethmoids. Mastoid air cells: Visualized mastoid air cells are well aerated. Bones/joints: Unremarkable. No acute fracture. Soft tissues: Unremarkable. IMPRESSION: 1. No acute intracranial pathology. 2. Mild mucosal thickening seen worst in the ethmoids. Exam: XR Chest Exam date and time: 03/02/2021 4:20 PM Age: 40 years old Clinical indication: Other: Fever, history of asthma, pui TECHNIQUE: Imaging protocol: XR of the chest. Views: 1 view. COMPARISON: CR XR CHEST 2V PA LATERAL 09/05/2018 2:34 PM FINDINGS: Lungs: Unremarkable. No consolidation. Pleural spaces: Unremarkable. No pleural effusion. No pneumothorax. Heart/Mediastinum: Unremarkable. No cardiomegaly. Bones/joints: Unremarkable. IMPRESSION: No acute findings. Labs Result diagrams: 03/03/21 05:35 03/03/21 06:20 Labs: Laboratory Results - last 24 hr 03/02/21 03/02/21 03/02/21 16:10 16:10 16:10 WBC 20.92 H RBC 5.00 Hgb 14.4 Hct 44.0 MCV 88.0 MCH 28.8 MCHC 32.7 RDW 13.0 Plt Count 263 MPV 10.2 Immature Gran % 0.5 Neutrophils % 82.2 Lymphocytes % 9.8 Monocytes % 6.5 Eosinophils % 0.6 Basophils % 0.4 Nucleated RBC % 0 Absolute Neutrophils 17.20 H Absolute Lymphocytes 2.05 Absolute Monocytes 1.36 H Absolute Eosinophils 0.13 Absolute Basophils 0.08 Xanthochromia VBG Lactate 1.1 Sodium 140 Potassium 4.2 Chloride 103 Carbon Dioxide 25.6 Anion Gap 11.4 H BUN 15 Creatinine 1.1 Estimated GFR/1.73 m2 >= 60.00 Glucose 119 H Calcium 9.2 Magnesium 1.6 L Total Bilirubin 0.5 AST 16 ALT 47 Alkaline Phosphatase 74 Troponin I < 0.05 Total Protein 7.8 Albumin 4.1 Urine Color Urine Clarity Urine pH Ur Specific [place] Urine Protein Urine Ketones Urine Blood Urine Nitrite Urine Bilirubin Urine Urobilinogen Ur Leukocyte Esterase Urine Glucose CSF Tube Number CSF Color CSF Clarity CSF WBC CSF RBC CSF Diff Comment CSF Glucose CSF Total Protein COVID-19 Source SARS-CoV-2 (PCR) 03/02/21 03/02/21 03/02/21 16:30 17:15 19:15 WBC RBC Hgb Hct MCV MCH MCHC RDW Plt Count MPV Immature Gran % Neutrophils % Lymphocytes % Monocytes % Eosinophils % Basophils % Nucleated RBC % Absolute Neutrophils Absolute Lymphocytes Absolute Monocytes Absolute Eosinophils Absolute Basophils Xanthochromia VBG Lactate Sodium Potassium Chloride Carbon Dioxide Anion Gap BUN Creatinine Estimated GFR/1.73 m2 Glucose Calcium Magnesium Total Bilirubin AST ALT Alkaline Phosphatase Troponin I < 0.05 Total Protein Albumin Urine Color Yellow Urine Clarity Clear Urine pH 7.0 Ur Specific [place] 1.025 Urine Protein Negative Urine Ketones Negative Urine Blood Negative Urine Nitrite Negative Urine Bilirubin Negative Urine Urobilinogen 1.0 H Ur Leukocyte Esterase Negative Urine Glucose Negative CSF Tube Number CSF Color CSF Clarity CSF WBC CSF RBC CSF Diff Comment CSF Glucose CSF Total Protein COVID-19 Source Nasal/Nares SARS-CoV-2 (PCR) Negative 03/02/21 03/02/21 20:45 20:45 WBC RBC Hgb Hct MCV MCH MCHC RDW Plt Count MPV Immature Gran % Neutrophils % Lymphocytes % Monocytes % Eosinophils % Basophils % Nucleated RBC % Absolute Neutrophils Absolute Lymphocytes Absolute Monocytes Absolute Eosinophils Absolute Basophils Xanthochromia Absent VBG Lactate Sodium Potassium Chloride Carbon Dioxide Anion Gap BUN Creatinine Estimated GFR/1.73 m2 Glucose Calcium Magnesium Total Bilirubin AST ALT Alkaline Phosphatase Troponin I Total Protein Albumin Urine Color Urine Clarity Urine pH Ur Specific [place] Urine Protein Urine Ketones Urine Blood Urine Nitrite Urine Bilirubin Urine Urobilinogen Ur Leukocyte Esterase Urine Glucose CSF Tube Number 4 CSF Color Colorless CSF Clarity Clear CSF WBC 4 CSF RBC 1 CSF Diff Comment Not Applicable CSF Glucose 71 H CSF Total Protein 41 COVID-19 Source SARS-CoV-2 (PCR) Last Vital Signs Temp 37.3 C 03/02/21 21:33 Pulse 81 03/02/21 21:15 Resp 31 H 03/02/21 21:20 BP 86/54 L 03/02/21 21:15 Pulse Ox 100 03/02/21 21:20
--- NOTE | 2021-03-02 23:04 | DI.VRAD_ITS ---
PROCEDURE INFORMATION: Exam: XR Chest Exam date and time: 03/02/2021 10:33 PM Age: 40 years old Clinical indication: Shortness of breath; Additional info: Lateral only per er TECHNIQUE: Imaging protocol: XR of the chest. Views: 1 view. COMPARISON: CR XR PORTABLE CHEST AP 03/02/2021 6:16 PM FINDINGS: Lungs: Unremarkable. No consolidation. Pleural spaces: Unremarkable. No pleural effusion. No pneumothorax. Heart/Mediastinum: Unremarkable. No cardiomegaly. Bones/joints: Unremarkable. IMPRESSION: No acute findings. Dictated and Authenticated by: Vernon Goldsmith MD. Ordering:KVNG Abdi MD
[2021-03-02] MEDS: cefTRIAXone 2 GM/50 ML BAG IVPB (23:19)
[2021-03-02] MEDS: Acetaminophen 325 MG TAB 1000 MG PO (23:20)
[2021-03-03] VITALS (64 sets, daily range): BP systolic 114–135; BP diastolic 60–80; PULSE 78–106; RESP 1–32; TEMP 36.6–37.2; O2SAT 78–97
[2021-03-03] MEDS: Normal Saline 1,000 ML 125 ML IV (01:25)
[2021-03-03] MEDS: DOXYCYCLINE 100 MG in Normal Saline 100 ML IVPB ×2 (01:45→15:02)
[2021-03-03] MEDS: fentaNYL 100 MCG/2 ML VIAL 50 MCG IVP ×2 (03:43→06:19)
[2021-03-03] MEDS: Mylanta Suspension 30 ML CUP PO (03:54)
[2021-03-03] MEDS: Acetaminophen 325 MG TAB 1000 MG PO ×2 (06:20→08:34)
[2021-03-03] MEDS: Albuterol 2.5 MG/3 ML INH SOLN VIAL UPD ×2 (06:20→22:54)
[2021-03-03 06:57] LABS: Abs Immature Grans 0.11 10^3/uL (0.0-0.06); Absolute Basophil Count 0.06 10^3/uL (0.0-0.2); Absolute Monocyte Count 1.27 10^3/uL (0.1-0.8); Basophils % 0.3; Eosinophils % 0.4; HCT 39.1 % (40.0-50.0); HGB 12.9 g/dL (13.5-17.5); Immature Grans % 0.5; Lymphocytes % 7.3; MCH 28.6 pg (27.0-33.0); MCV 86.7 fL (80-95); MPV 10.8 fL (8.0-11.0); Monocytes % 6.3; Neutrophils % 85.2; Nucleated RBC 0 %; Platelet Count 204 10^3/uL (130-400); RBC 4.51 10^6/uL (4.36-5.78); RDW 13.2 % (11.8-14.1); RDW-SD 41.7 fL; WBC 20.17 10^3/uL (4.4-10.8)
[2021-03-03 06:59] LABS: Absolute Eosinophil Count 0.08 10^3/uL (0.0-0.7); Absolute Lymphocyte Count 1.47 10^3/uL (1.2-3.4); Absolute Neutrophil Count 17.18 10^3/uL (1.2-6.7)
[2021-03-03 07:10] LABS: ESR 20 mm/hr (0-15)
[2021-03-03 07:37] LABS: Procalcitonin < 0.1 ng/mL
[2021-03-03 07:44] LABS: ALT 33 U/L (16-63); AST 12 U/L (15-37); Albumin 3.1 g/dL (3.4-5.0); Alkaline Phosphatase 69 U/L (46-116); BUN 14 mg/dL (7-18); Bilirubin, Total 0.4 mg/dL (0.2-1.0); CREATININE 0.9 mg/dL (0.70-1.30); Calcium 8.2 mg/dL (8.5-10.1); Chloride 106 mmol/L (98-107); Glucose 222 mg/dL (74-106); Potassium 3.9 mmol/L (3.5-5.1); Sodium 141 mmol/L (136-145); Total Protein 6.5 g/dL (6.4-8.2)
[2021-03-03 07:49] LABS: C-Reactive Protein 7.83 mg/dL (0.0-0.3)
[2021-03-03] MEDS: Atorvastatin 40 MG TAB PO (08:21)
[2021-03-03] MEDS: Ketorolac 30 MG/ML VIAL IVP ×3 (08:22→20:53)
[2021-03-03] MEDS: Montelukast 10 MG TAB PO (08:23)
[2021-03-03] MEDS: Loratidine 10 MG TAB PO (08:24)
[2021-03-03] MEDS: Omeprazole 20 MG CAPCR PO (08:24)
[2021-03-03] MEDS: Insulin Aspart 300 UNITS/3 ML PEN SC ×3 (08:30→16:47)
[2021-03-03] MEDS: Fluticasone NASAL SPRAY 16 GM BTL NS (08:31)
[2021-03-03] MEDS: Budesonide/Formoterol 160/4.5 6 GM 60 PUFF INH IH ×2 (10:30→20:52)
--- NOTE | 2021-03-03 15:01 | PGE_ITS ---
Date of Service Date of service: 03/03/21 Time of Service: 15:02 Assessment and Plan Assessment and plan (1) Hypertension: Status: Chronic Assessment and plan: His lisinopril was held on admission d/t relatively low BP Will restart lisinopril in the AM. BP currently in the 120-130's. Monitor Qualifiers: Hypertension type: primary hypertension Qualified Code(s): I10 - Essential (primary) hypertension (2) Ethmoid sinusitis: Status: Acute Assessment and plan: Likely the source of his SRIVASTAVA, fever (no fever since admission. Cont Rocephin and doxycycline. Added Fluticasone nasal steroid. Toradol, acetaminophen, oxycodone po all prn. (3) Diabetes mellitus type II, non insulin dependent: Status: None Assessment and plan: Holding metformin. Cont Januvia Sliding scale insulin correction dosing. Diabetic diet. Subjective Subjective Patient reports: tolerating a regular diet and afebrile; denies nausea, vomiting and shortness of breath Interval history since last seen: Ongoing SRIVASTAVA Feeling tired Exam Const General: cooperative, no acute distress and ill appearing Nutritional Appearance: obese Orientation: alert and oriented x3 Eyes Sclera: sclerae normal Pupils: PERRL Resp Effort & Inspection: normal respiratory effort Auscultation: clear to auscultation bilaterally Cardio Rate: regular rate Rhythm: regular rhythm Heart Sounds: S1 normal and S2 normal GI Palpation: soft and nontender Skin General skin exam: other (karely erythema of cheeks) Neuro General: no focal motor deficits Speech: speech normal Objective Last Vital Signs Temp 36.7 C 03/03/21 13:16 Pulse 80 03/03/21 13:16 Resp 16 03/03/21 13:16 BP 129/73 03/03/21 13:16 Pulse Ox 95 03/03/21 13:16 Laboratory Results - last 24 hr 03/02/21 03/02/21 03/02/21 16:10 16:10 16:10 WBC 20.92 H RBC 5.00 Hgb 14.4 Hct 44.0 MCV 88.0 MCH 28.8 MCHC 32.7 RDW 13.0 Plt Count 263 MPV 10.2 Immature Gran % 0.5 Neutrophils % 82.2 Lymphocytes % 9.8 Monocytes % 6.5 Eosinophils % 0.6 Basophils % 0.4 Nucleated RBC % 0 Absolute Neutrophils 17.20 H Absolute Lymphocytes 2.05 Absolute Monocytes 1.36 H Absolute Eosinophils 0.13 Absolute Basophils 0.08 Xanthochromia ESR VBG Lactate 1.1 Sodium 140 Potassium 4.2 Chloride 103 Carbon Dioxide 25.6 Anion Gap 11.4 H BUN 15 Creatinine 1.1 Estimated GFR/1.73 m2 >= 60.00 Glucose 119 H Calcium 9.2 Magnesium 1.6 L Total Bilirubin 0.5 AST 16 ALT 47 Alkaline Phosphatase 74 Troponin I < 0.05 C-Reactive Protein Total Protein 7.8 Albumin 4.1 Procalcitonin Urine Color Urine Clarity Urine pH Ur Specific [place] Urine Protein Urine Ketones Urine Blood Urine Nitrite Urine Bilirubin Urine Urobilinogen Ur Leukocyte Esterase Urine Glucose CSF Tube Number CSF Color CSF Clarity CSF WBC CSF RBC CSF Diff Comment CSF Glucose CSF Total Protein COVID-19 Source SARS-CoV-2 (PCR) 03/02/21 03/02/21 03/02/21 16:30 17:15 19:15 WBC RBC Hgb Hct MCV MCH MCHC RDW Plt Count MPV Immature Gran % Neutrophils % Lymphocytes % Monocytes % Eosinophils % Basophils % Nucleated RBC % Absolute Neutrophils Absolute Lymphocytes Absolute Monocytes Absolute Eosinophils Absolute Basophils Xanthochromia ESR VBG Lactate Sodium Potassium Chloride Carbon Dioxide Anion Gap BUN Creatinine Estimated GFR/1.73 m2 Glucose Calcium Magnesium Total Bilirubin AST ALT Alkaline Phosphatase Troponin I < 0.05 C-Reactive Protein Total Protein Albumin Procalcitonin Urine Color Yellow Urine Clarity Clear Urine pH 7.0 Ur Specific [place] 1.025 Urine Protein Negative Urine Ketones Negative Urine Blood Negative Urine Nitrite Negative Urine Bilirubin Negative Urine Urobilinogen 1.0 H Ur Leukocyte Esterase Negative Urine Glucose Negative CSF Tube Number CSF Color CSF Clarity CSF WBC CSF RBC CSF Diff Comment CSF Glucose CSF Total Protein COVID-19 Source Nasal/Nares SARS-CoV-2 (PCR) Negative 03/02/21 03/02/21 03/03/21 20:45 20:45 05:35 WBC 20.17 H RBC 4.51 Hgb 12.9 L Hct 39.1 L MCV 86.7 MCH 28.6 MCHC 33.0 RDW 13.2 Plt Count 204 MPV 10.8 Immature Gran % 0.5 Neutrophils % 85.2 Lymphocytes % 7.3 Monocytes % 6.3 Eosinophils % 0.4 Basophils % 0.3 Nucleated RBC % 0 Absolute Neutrophils 17.18 H Absolute Lymphocytes 1.47 Absolute Monocytes 1.27 H Absolute Eosinophils 0.08 Absolute Basophils 0.06 Xanthochromia Absent ESR VBG Lactate Sodium Potassium Chloride Carbon Dioxide Anion Gap BUN Creatinine Estimated GFR/1.73 m2 Glucose Calcium Magnesium Total Bilirubin AST ALT Alkaline Phosphatase Troponin I C-Reactive Protein Total Protein Albumin Procalcitonin Urine Color Urine Clarity Urine pH Ur Specific [place] Urine Protein Urine Ketones Urine Blood Urine Nitrite Urine Bilirubin Urine Urobilinogen Ur Leukocyte Esterase Urine Glucose CSF Tube Number 4 CSF Color Colorless CSF Clarity Clear CSF WBC 4 CSF RBC 1 CSF Diff Comment CSF Glucose 71 H CSF Total Protein 41 COVID-19 Source SARS-CoV-2 (PCR) 03/03/21 03/03/21 03/03/21 06:20 06:20 06:20 WBC RBC Hgb Hct MCV MCH MCHC RDW Plt Count MPV Immature Gran % Neutrophils % Lymphocytes % Monocytes % Eosinophils % Basophils % Nucleated RBC % Absolute Neutrophils Absolute Lymphocytes Absolute Monocytes Absolute Eosinophils Absolute Basophils Xanthochromia ESR 20 H VBG Lactate Sodium Potassium Chloride Carbon Dioxide Anion Gap BUN Creatinine Estimated GFR/1.73 m2 Glucose Calcium Magnesium Total Bilirubin AST ALT Alkaline Phosphatase Troponin I C-Reactive Protein 7.83 H Total Protein Albumin Procalcitonin < 0.1 Urine Color Urine Clarity Urine pH Ur Specific [place] Urine Protein Urine Ketones Urine Blood Urine Nitrite Urine Bilirubin Urine Urobilinogen Ur Leukocyte Esterase Urine Glucose CSF Tube Number CSF Color CSF Clarity CSF WBC CSF RBC CSF Diff Comment CSF Glucose CSF Total Protein COVID-19 Source SARS-CoV-2 (PCR) 03/03/21 06:20 WBC RBC Hgb Hct MCV MCH MCHC RDW Plt Count MPV Immature Gran % Neutrophils % Lymphocytes % Monocytes % Eosinophils % Basophils % Nucleated RBC % Absolute Neutrophils Absolute Lymphocytes Absolute Monocytes Absolute Eosinophils Absolute Basophils Xanthochromia ESR VBG Lactate Sodium 141 Potassium 3.9 Chloride 106 Carbon Dioxide 24.0 Anion Gap 11.0 BUN 14 Creatinine 0.9 Estimated GFR/1.73 m2 >= 60.00 Glucose 222 H D Calcium 8.2 L Magnesium Total Bilirubin 0.4 AST 12 L ALT 33 Alkaline Phosphatase 69 Troponin I C-Reactive Protein Total Protein 6.5 Albumin 3.1 L Procalcitonin Urine Color Urine Clarity Urine pH Ur Specific [place] Urine Protein Urine Ketones Urine Blood Urine Nitrite Urine Bilirubin Urine Urobilinogen Ur Leukocyte Esterase Urine Glucose CSF Tube Number CSF Color CSF Clarity CSF WBC CSF RBC CSF Diff Comment CSF Glucose CSF Total Protein COVID-19 Source SARS-CoV-2 (PCR)
[2021-03-03] MEDS: Nicotine 21 MG/24 HR PATCH TD (15:11)
--- NOTE | 2021-03-03 15:12 | NUR.NOTE ---
Nursing Note: Pt transferred to 215 from ICU. A&Ox3. oriented to room.
[2021-03-03] MEDS: oxyCODONE 5 MG TAB PO ×2 (16:46→22:34)
[2021-03-03] MEDS: Acetaminophen 500 MG TAB 1000 MG PO ×2 (16:52→22:34)
[2021-03-03] MEDS: Normal Saline Flush 10 ML SYR IVP (20:53)
[2021-03-03] MEDS: Melatonin 3 MG TAB PO (22:34)
[2021-03-03] MEDS: diphenhydrAMINE 25 MG CAP PO (22:34)
[2021-03-03] MEDS: cefTRIAXone 2 GM/50 ML BAG IVPB (22:35)
[2021-03-04 00:05] VITALS: BP 124/70; PULSE 82; RESP 20; TEMP 36.5; O2SAT 98
[2021-03-04] MEDS: fentaNYL 100 MCG/2 ML VIAL 50 MCG IVP (00:27)
[2021-03-04 00:39] VITALS: BP 122/72; PULSE 91; RESP 18; TEMP 36.6; O2SAT 93
[2021-03-04] MEDS: DOXYCYCLINE 100 MG in Normal Saline 100 ML IVPB (01:57)
[2021-03-04 03:36] VITALS: BP 111/64; PULSE 72; RESP 16; TEMP 36.5; O2SAT 95
[2021-03-04] MEDS: Ketorolac 30 MG/ML VIAL IVP (03:38)
[2021-03-04] MEDS: Normal Saline Flush 10 ML SYR IVP (03:41)
[2021-03-04 06:40] LABS: Cryptococcal Antigen CSF Negative (Negative)
[2021-03-04 07:24] VITALS: BP 145/87; PULSE 71; RESP 18; TEMP 36.7; O2SAT 97
[2021-03-04] MEDS: Acetaminophen 500 MG TAB 1000 MG PO (08:06)
[2021-03-04] MEDS: Atorvastatin 40 MG TAB PO (08:07)
[2021-03-04] MEDS: Lisinopril 20 MG TAB PO (08:07)
[2021-03-04] MEDS: Omeprazole 20 MG CAPCR PO (08:07)
[2021-03-04] MEDS: Montelukast 10 MG TAB PO (08:07)
[2021-03-04] MEDS: Loratidine 10 MG TAB PO (08:07)
[2021-03-04] MEDS: Fluticasone NASAL SPRAY 16 GM BTL NS (08:47)
[2021-03-04] MEDS: Budesonide/Formoterol 160/4.5 6 GM 60 PUFF INH IH (09:10)
--- NOTE | 2021-03-04 09:10 | DSE_ITS ---
Date of service: 03/04/21 Time of Service: 09:15 DS: Diagnosis Discharge Diagnosis (1) Hypertension: Status: Chronic (2) Ethmoid sinusitis: Status: Acute (3) Diabetes mellitus type II, non insulin dependent: Status: None Discharge Plan Disposition Patient Disposition: HOME Condition: Good Discharge Details Reason For Visit: FEVER WITH LEUKOCYTOSIS,SRIVASTAVA,COUGH Admit Date/Time: 03/02/21 22:37 Admit Provider: Kimani Forbes Attending Provider: Kimani Forbes [facility]: This is a 40-year-old male patient who is in the ED with a chief complaint of myalgias with chest discomfort, fever and headache which began the day of presentation. He had been doing some heavy lifting outside and activity with cooking chicken on the grill at an event over the weekend. 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 He also has type II diabetic with history of hypertension but no cardiac history. He says that his headache was causing some slight confusion and with his fever he had rigors. He denied any significant neck pain but did have some discomfort of his neck; lumbar puncture in the ED was negative. He was found to have significant fever, elevation of his WBC over 20,000 and significant headache which required fentanyl IV for pain control. The patient endorsed no GI symptoms; no nauseam vomiting or diarrhea. He had no focal neurological complaints. He denied hemoptysis. He did have sinus pressure over his eyes and forehead. The patient does have significant history of sleep apnea. He is overweight. With prn Toradol, acetiminophen and oxycodone, his SRIVASTAVA eventually improved to a very dull 1-2/10. He had no recorded fevers. He will d/c on a course of Augmentin and doxycycline. A tick-born disease panel was ordered and pending. Nasonex was initiated and he will continue. He feels he is ready to quit smoking and plans on continuing the use of nicotine replacement patches. PCP follow up in 1 week Home Meds and New Rx's Prescriptions: New Acetaminophen [Tylenol] 650 mg PO Q6H PRN PRNQty: 0 RF: 0 nicotine 21 mg/24 hr Patch 24 Hour 21 mg transdermal DAILY PRN PRNQty: 0 RF: 0 fluticasone propionate 50 mcg/actuation [place],Suspension See Rx Instructions .ROUTE .COMPLEX Qty: 16 RF: 0 amoxicillin-pot clavulanate [Augmentin] 875-125 mg tablet 1 tab PO BID Qty: 10 RF: 0 doxycycline hyclate 100 mg capsule 100 mg PO BID Qty: 14 RF: 0 oxycodone 5 mg capsule 5 mg PO Q6H PRNQty: 10 RF: 0 Continued lisinopril 20 MG tablet 20 mg PO DAILY RF: 0 montelukast 10 MG tablet 10 mg PO DAILY RF: 0 omeprazole magnesium [Prilosec OTC] 20 MG tablet,delayed release (DR/EC) 20 mg PO DAILY RF: 0 loratadine 10 MG tablet 1 tab PO DAILY RF: 0 atorvastatin 40 mg tablet 40 mg PO DAILY RF: 0 metformin 1,000 mg tablet 1,000 mg PO DAILY RF: 0 fluticasone propion-salmeterol [Wixela Inhub] 500-50 mcg/dose blister with device INHALATION BID RF: 0 Januvia 50 mg tablet 50 mg PO QHS RF: 0 ondansetron HCl 4 mg Tablet 4 mg PO Q6H PRNRF: 0 tramadol 50 mg Tablet 50 mg PO Q8H PRNRF: 0 Lantus Solostar U-100 Insulin 100 unit/mL (3 mL) Insulin Pen 20 unit SUBCUT QHS RF: 0 Ozempic 0.25 mg or 0.5 mg(2 mg/1.5 mL) Pen Injector 0.25 mg SUBCUT QWEEK RF: 0 budesonide 9 mg tablet,delayed and ext.release 9 mg PO DAILY Qty: 4 RF: 0 magnesium oxide 400 mg (241.3 mg magnesium) tablet 400 mg PO QHS Qty: 30 RF: 0 Discharge Instructions Instructions: Leukocytosis (DC) Stand Alone Forms: Nursing Discharge Form Referrals: Temo Narvaez [Primary Care Provider] - 03/07/21 11:00 am (Please see Dr. Narvaez at [facility]. ) Activity:: Activity as Tolerated Equipment/Supplies:: No Equipment Needed Diet:: Heart Healthy Discharge Orders Discharge Orders: Discharge Order (Routine); Ordered 03/04/21 Ordered By: Ronnell Case Discharge Data Discharge Date/Time-TO BE ENTERED AT DEPARTURE: 03/04/21 10:22 DS: Summary Time Spent with Patient providing and/or coordinating discharge services: Greater than 30 minutes Status at Discharge Functional status at discharge: independent ambulation Overall status at discharge: patient is progressing back to baseline Mental Status: mental status grossly normal Speech and Movement: speech and movement normal Mood: congruent mood Affect: normal affect Exam Const General: cooperative, no acute distress and ill appearing Nutritional Appearance: obese Orientation: alert and oriented x3 Eyes Sclera: sclerae normal Pupils: PERRL Resp Effort & Inspection: normal respiratory effort Auscultation: clear to auscultation bilaterally Cardio Rate: regular rate Rhythm: regular rhythm Heart Sounds: S1 normal and S2 normal GI Palpation: soft and nontender Skin General skin exam: other (karely erythema of cheeks) Neuro General: no focal motor deficits Speech: speech normal Psych Mental Status: mental status grossly normal Speech and Movement: speech and movement normal Mood: congruent mood Affect: normal affect DS: Data Vitals/I&O Vitals and I&O: Vital Signs Temperature 36.7 C 03/04/21 07:24 Temperature Source Temporal Artery Scan 03/04/21 07:24 Pulse 71 03/04/21 07:24 Pulse Rhythm Regular 03/04/21 00:39 Pulse 91 H 03/03/21 01:05 Respiratory Rate 18 03/04/21 07:24 Respiratory Effort Non-Labored 03/04/21 00:39 Respiratory Depth Shallow 03/04/21 00:39 Respiratory Pattern Normal 03/04/21 00:39 Blood Pressure 145/87 H 03/04/21 07:24 Blood Pressure Mean 91 03/03/21 06:33 Blood Pressure Position Supine 03/03/21 01:05 Pulse Oximetry 97 03/04/21 07:24 Respiratory End-tidal CO2 52 03/02/21 21:50 Oxygen Delivery Method Room Air 03/04/21 07:24 Oxygen Flow Rate 0 03/04/21 07:24 Pain Level 4 03/04/21 08:06 Comment 03/04/21 00:39 Intake & Output 03/03/21 03/03/21 03/04/21 11:59 23:59 11:59 Intake Total 520 / 620 100 / 620 100 / 100 Output Total 1100 / 1100 350 / 350 Balance -580 / -480 100 / -480 -250 / -250 Weight 99.1 kg Intake: IV 160 / 260 100 / 260 100 / 100 Oral 360 / 360 Output: Urine 1100 / 1100 350 / 350 Other: Urine Color Yellow Yellow Light Bindu Urine Appearance Clear Clear Clear Urine Odor Normal None Comment pt voiding independently in toilet pt denies ssues Voiding Methods Urinal Toilet Urinal Data Completed and Pending Labs on day of discharge: Labs from last 24 hours 03/04/21 03/02/21 08:45 20:42 CSF Cryptococcal Ag Ttr Not Applicable CSF Cryptococcus Ag Negative A.phagocytophil DNA PCR Pending B. divergens/MO-1 PCR Pending Babesia duncani (PCR) Pending Babesia microti DNA PCR Pending Borrelia (PCR) Pending E.chaffeensis DNA (PCR) Pending E.ewingii/canis DNA PCR Pending E. muris-like DNA (PCR) Pending Preliminary micro results at discharge 03/02/21 20:45 Body Fluid Culture - Preliminary Cerebrospinal Fluid 03/02/21 17:00 Blood Culture - Preliminary Blood NO GROWTH 24 HOURS 03/02/21 17:00 Blood Culture - Preliminary Blood NO GROWTH 24 HOURS [facility] Medical History Abdominal pain Allergic rhinitis Asthma, moderate persistent Cervical spine disease Colitis 03/22/19 Dr Debby Luciano, [facility] Diabetes mellitus Diabetes mellitus type II, non insulin dependent Pt states not anymore Diverticulosis Eosinophilia Fatty liver GERD (gastroesophageal reflux disease) Hyperlipidemia Hypertension Hypertension Leukocytosis (leucocytosis) Microscopic colitis Obstructive sleep apnea PREM (obstructive sleep apnea) Tobacco abuse Surgical History Excision, Pilonidal Cyst H/O vasectomy Hx of fusion of cervical spine February 2018 - Zonia Reynosok Day S/P colonoscopy 03/22/19 Social History Smoking/Tobacco Use Status: Current every day Tobacco Type: cigarettes Smoking risk assessment performed?: Yes Alcohol Intake: current Alcohol Intake frequency: holidays/special occasions only Drug use: Never Substance use type: does not use Do you feel safe at home: Yes Do you feel safe in your relationship?: Yes Additional Social history: is here with ; interacts appropriately
[2021-03-04] MEDS: Insulin Aspart 300 UNITS/3 ML PEN SC (09:47)
[2021-03-04 10:51] LABS: Lyme Ab w Rflx to Lyme Confirm Negative (Negative)
[2021-03-05 12:41] LABS: Anaplasma phagocytophilum Negative (Negative); B. miyamotoi PCR Negative (Negative); Babesia divergens/MO-1 Negative (Negative); Babesia duncani Negative (Negative); Babesia microti Negative (Negative); Ehrlichia chaffeensis Negative (Negative); Ehrlichia ewingii/canis Negative (Negative); Ehrlichia muris eauclairensis Negative (Negative)
[2021-03-05 14:53] LABS: VDRL, CSF Negative (Negative)
[2021-03-05 21:48] LABS: Anaplasma phagocytophilum Negative (Negative); B. miyamotoi PCR Negative (Negative); Babesia divergens/MO-1 Negative (Negative); Babesia duncani Negative (Negative); Babesia microti Negative (Negative); Ehrlichia chaffeensis Negative (Negative); Ehrlichia ewingii/canis Negative (Negative); Ehrlichia muris eauclairensis Negative (Negative)
[2021-03-08 13:28] LABS: West Nile Virus PCR, CSF Negative (Negative)
== END 2021-03-04 10:22 | disposition home or self-care (01) | DRG 153 ==
LOC: ER 23:19 → MS 03-04 09:16 → ICU 05-20 21:42 → MS 05-20 21:43
PROVIDERS: Family Medicine; Admitting Provider Family Medicine; Emergency Provider Registered Nurse Emergency; PCP Family Medicine; Visit Provider Family Medicine
DX: J01.20 Acute ethmoidal sinusitis, unspecified (principal); F17.210 Nicotine dependence, cigarettes, uncomplicated; E11.9 Type 2 diabetes mellitus without complications; Z79.4 Long term (current) use of insulin; I10 Essential (primary) hypertension; M79.10 Myalgia, unspecified site; J45.40 Moderate persistent asthma, uncomplicated; K57.90 Diverticulosis of intestine, part unspecified, without perforation or abscess without bleeding; D72.10 Eosinophilia, unspecified; K76.0 Fatty (change of) liver, not elsewhere classified; K21.9 Gastro-esophageal reflux disease without esophagitis; E78.5 Hyperlipidemia, unspecified; G47.33 Obstructive sleep apnea (adult) (pediatric); Z98.1 Arthrodesis status; K52.839 Microscopic colitis, unspecified; E66.9 Obesity, unspecified; Z68.34 Body mass index [BMI] 34.0-34.9, adult; Z20.822 Contact with and (suspected) exposure to COVID-19
CPT/HCPCS: 36415; 36416; 62270; 80053; 82945; 82962; 84145; 85652; 87040; 87635; 87798; 89050; 89051; 93005; 94640; 96361; 96365; 96366; 96367; 96375; 96376; 99285; 70450; 71045; 81003; 83605; 83735; 84157; 84484; 85025; 86140; 86403; 86592; 86618; 87070; 87205; 93010; 99223; 99232; 99239; J0131; J1885; J2405; J3010; J3360; J3475; J7613

== ENCOUNTER 2021-03-11 16:05 | Outpatient (CLI) | payer BC, SELFPAY ==
[2021-03-11 13:15] LABS: Hemoglobin A1C 6.9 % (<5.7)
[2021-03-11 13:20] LABS: Abs Immature Grans 0.26 10^3/uL (0.0-0.06); Absolute Basophil Count 0.12 10^3/uL (0.0-0.2); Absolute Lymphocyte Count 3.88 10^3/uL (1.2-3.4); Basophils % 0.6; Eosinophils % 1.5; HCT 48.4 % (40.0-50.0); HGB 16.1 g/dL (13.5-17.5); Immature Grans % 1.3; Lymphocytes % 18.9; MCH 28.8 pg (27.0-33.0); MCHC 33.3 % (32.0-36.0); MCV 86.6 fL (80-95); MPV 9.8 fL (8.0-11.0); Monocytes % 4.4; Neutrophils % 73.3; Nucleated RBC 0 %; Platelet Count 398 10^3/uL (130-400); RBC 5.59 10^6/uL (4.36-5.78); RDW 12.5 % (11.8-14.1); RDW-SD 39.3 fL; WBC 20.52 10^3/uL (4.4-10.8)
[2021-03-11 13:24] LABS: Absolute Eosinophil Count 0.31 10^3/uL (0.0-0.7); Absolute Neutrophil Count 15.04 10^3/uL (1.2-6.7)
[2021-03-11 13:32] LABS: C-Reactive Protein 0.57 mg/dL (0.0-0.3)
== END 2021-03-11 16:06 | disposition home or self-care (01) ==
LOC: LBO 16:06
PROVIDERS: PCP Family Medicine; Visit Provider Family Medicine
DX: D72.829 Elevated white blood cell count, unspecified (principal); E11.9 Type 2 diabetes mellitus without complications
CPT/HCPCS: 36415; 83036; 85025; 86140

== ENCOUNTER 2022-01-15 03:49 | Outpatient (CLI) | payer BC, SELFPAY ==
[2022-01-15 15:29] LABS: Source Nasal/Nares
[2022-01-15 22:48] LABS: COVID-19 PCR Negative (Negative)
== END 2022-01-15 03:50 | disposition home or self-care (01) ==
LOC: LBO 03:49
PROVIDERS: PCP Family Medicine; Visit Provider Surgery
DX: Z20.822 Contact with and (suspected) exposure to COVID-19 (principal); Z01.818 Encounter for other preprocedural examination
CPT/HCPCS: 87635

== ENCOUNTER 2022-01-17 10:54 | Day surgery (SDC) | payer BC, SELFPAY ==
[2022-01-17] VITALS (13 sets, daily range): BP systolic 82–123; BP diastolic 38–85; PULSE 67–96; RESP 13–29; TEMP 36.2–36.7; O2SAT 89–97; BMI 32.4
--- NOTE | 2022-01-17 10:10 | W.ANESPRE ---
General Info Date of Service Date Performed: 01/17/22 Height: 5 ft 7 in Weight: 93.894 kg Body Mass Index (BMI): 32.4 Surgical Procedure: Operation Date: 01/17/22 12:10 Proposed Procedure Side Surgeon p Herniorrhaphy Umbilical Repair w/ Mesh Audra Mixon MD Meds Allergies and Home Medications Allergies Allergy/AdvReac Type Severity Reaction Status Date / Time exenatide Allergy Intermediate Diarrhea Verified 01/17/22 11:18 [From Bydureon BCise] hydromorphone [From Dilaudid] AdvReac Other (See Verified 01/17/22 11:18 Comment) morphine AdvReac severe Verified 01/17/22 11:18 vomiting Home Medication Medication Instructions Recorded montelukast 10 mg tablet 10 mg PO DAILY 11/25/12 omeprazole magnesium 20 mg 20 mg PO DAILY 11/25/12 tablet,delayed release (Prilosec OTC) loratadine 10 mg tablet 1 tab PO DAILY 12/04/13 lisinopril 20 mg tablet 20 mg PO DAILY 01/30/18 ondansetron HCl 4 mg tablet 4 mg PO Q6H PRN 08/29/19 atorvastatin 40 mg tablet 40 mg PO DAILY 03/02/21 fluticasone 500 mcg-salmeterol 50 2 inh inhalation BID 03/02/21 mcg/dose blistr powdr for inhalation (Wixela Inhub) metformin 1,000 mg tablet 1,000 mg PO DAILY 03/02/21 sitagliptin 50 mg tablet (Januvia) 50 mg PO QHS 03/02/21 Acetaminophen [Tylenol] 650 mg PO Q6H PRN PRN ##0 03/04/21 albuterol sulfate 2.5 mg/3 mL 2.5 mg inhalation Q6H 12/31/21 (0.083 %) solution for nebulization glipizide 5 mg tablet 5 mg PO DAILY 12/31/21 melatonin 10 mg-lemon balm leaf 1 tab PO DAILY 12/31/21 extract 1 mg tablet pioglitazone 15 mg tablet 15 mg PO DAILY 12/31/21 lorazepam 1 mg tablet (Ativan) 1 mg PO QHS PRN anxiety #1 tab 01/07/22 Current Visit Medications: Current Medications Generic Name Dose Route Start Last Admin Trade Name Freq PRN Reason Stop Dose Admin Acetaminophen 1,000 mg 01/17/22 06:00 Acetaminophen 500 Mg Tab PO 01/17/22 23:59 PREOP YEVGENIY Celecoxib 200 mg 01/17/22 06:00 Celecoxib 200 Mg Cap PO 01/17/22 23:59 PREOP YEVGENIY Gabapentin 300 mg 01/17/22 06:00 Gabapentin 300 Mg Cap PO 01/17/22 23:59 PREOP YEVGENIY Ringer's Solution 1,000 mls @ 80 mls/hr 01/17/22 06:00 IV 02/13/22 23:59 INFUSION YEVGENIY Cefazolin Sodium/Dextrose 2 gm in 50 mls @ 100 mls/hr 01/17/22 06:00 Ancef Duplex IVPB 01/17/22 23:59 PREOP YEVGENIY IV Miscellaneous Supplies 1 each 01/17/22 06:00 Iv Access IV 02/13/22 23:59 DIRECTED YEVGENIY Sodium Chloride 0 ml 01/17/22 06:00 Normal Saline Flush 10 Ml Syr IV 02/13/22 23:59 PRN PRN Sodium Chloride 0 ml 01/17/22 06:00 Normal Saline 10 Ml Vial IJ 02/13/22 23:59 DIRECTED PRN Sterile Water 0 ml 01/17/22 06:00 Water,Injection,Sterile 10 Ml Vial IJ 02/13/22 23:59 DIRECTED PRN PFSH Active Problems Active Problems: Problem Status Onset Code Umbilical hernia K42.9 PREM (obstructive sleep apnea) G47.33 Medical History Medical History Abdominal pain Allergic rhinitis Anxiety Asthma, moderate persistent Cervical spine disease Colitis 03/22/19 Dr Debby Luciano, [facility] Cough Diabetes mellitus type II, non insulin dependent Pt states not anymore Diarrhea Diverticulosis DVT prophylaxis Dyslipidemia Enterocolitis Eosinophilia Ethmoid sinusitis Fatty liver Fever GERD (gastroesophageal reflux disease) Gout Headache Hyperlipidemia Hypertension Leukocytosis (leucocytosis) Microscopic colitis Obstructive sleep apnea SIRS (systemic inflammatory response syndrome) Tobacco abuse Surgical History Surgical History Excision, Pilonidal Cyst H/O vasectomy Hx of fusion of cervical spine February 2018 - Zonia Brooks Day S/P colonoscopy 03/22/19 Tobacco Smoking/Tobacco Use Status: Current every day Tobacco Type: cigarettes Smoking cigarettes per day: 10 Alcohol Alcohol Intake: current Alcohol intake frequency: holidays/special occasions only Substance Use Substance use: Never Substance use type: does not use Vital Signs and Lab Results Lab Results Blood Type / Crossmatch: No Data to Display Complete Blood Count: No Data to Display Complete Metabolic Panel: No Data to Display Liver Function Panel: No Data to Display Coagulation Panel: No Data to Display Cardiac Panel: No Data to Display Arterial Blood Gas: No Data to Display Venous Blood Gas: No Data to Display Pancreas Panel: No Data to Display Thyroid Panel: No Data to Display Infectious Disease: Coronavirus (COVID-19)(PCR) Negative (Negative) 01/15/22 15:00 Coronavirus 2019 Source Nasal/Nares 01/15/22 15:00 Blood Cultures: No Data to Display Toxicology Panel: No Data to Display Imaging and Studies Imaging and Studies Study information below may be from another EMR and interpreted by another provider. Please see original notes in EMR for more complete details. EKG Summary: Conclusion Sinus tachycardia...rate> 99. Pulmonary Function Summary: IMPRESSION Overall normal pulmonary function study. Clinical correlation recommended. When this study was compared to previous once from 01/01/15, the patient had an overall 190 cc improvement in FVC. FEV1 has improved by 80 cc. Clinical correlation recommended. Anesthesia Assessment and Plan Anesthesia History Personal History: No History of Anesthesia Complications Family History: No Family History of Anesthesia Complications Exercise Tolerance Exercise Tolerance: Metabolic Equivalents>4 Pertinent Negatives Pertinent Negatives: No Symptoms of GERD, No Major Cardiovascular Symptoms or Complaints, No Major Pulmonary Symptoms or Complaints and No History of CVA/TIA Cardiac & Pulmonary Exam Cardiac Exam: Normal S1/S2 Heart Sounds Pulmonary Exam: Clear Bilateral Breath Sounds Implantable Cardiac Device Does patient have a Pacemaker or an ICD?: No Airway Exam Known Difficult Airway: No Mallampati Class: 2 Mouth Opening: Normal (> 3cm) Thyromental Distance: Greater than 3 cm Neck Range of Motion: Full ROM Neck Circumference: Normal Teeth Condition: Normal Dentition ASA Classification ASA Score: ASA 2 Emergency Case?: No NPO Status NPO Status: NPO Clears >2 hours, Solids >8 hours Anesthesia Plan Resuscitation Status: Full Code Anesthesia Technique: General Anesthesia Airway Planned: Endotracheal Tube Pain Management: Surgeon and patient request nerve block Monitors Used: Standard Monitors Preoperative Comments:: High anxiety, MKO on arrival
[2022-01-17] MEDS: Lactated Ringers 1,000 ML 80 ML IV (11:36)
[2022-01-17] MEDS: Acetaminophen 500 MG TAB 1000 MG PO (11:38)
[2022-01-17] MEDS: Gabapentin 300 MG CAP PO (11:39)
[2022-01-17] MEDS: Celecoxib 200 MG CAP PO (11:39)
[2022-01-17] MEDS: Midazolam/Ketamine/Ondansetron (3/25/2MG) 1 TAB 1 EACH SL (12:05)
[2022-01-17] MEDS: ceFAZolin 2 GM/50 ML BAG IVPB (12:09)
[2022-01-17] MEDS: Bupivacaine LIPOSOME/PF 133 MG/10 ML VIAL IJ (12:50)
[2022-01-17] MEDS: Bupivacaine 0.25% Pres-Free 10 ML VIAL (12:50)
--- NOTE | 2022-01-17 12:52 | W.ANESNERVE ---
Nerve Block Single Injection Procedure Date and Time Date Performed: 01/17/22 Procedure Start: 12:20 Location Where Procedure Performed Procedure Location: Operating Room Procedure Stop: 12:25 Reason Performed: Postoperative Analgesia Requesting Provider: Audra Mixon Timeout Performed Timeout Performed: Yes Monitoring Used ECG, Blood Pressure and SpO2 Sterility Sterility: Hand Hygiene, Surgical Cap, Surgical Mask, Sterile Gloves and Chlorhexidine Sedation Given During Procedure Sedation Given (Indicate Dose Given): No Sedation given Patient Mental Status Patient Mental Status: Performed under general anesthesia Nerve Block 1st Nerve Block: Laterality: Bilateral Block Type: Rectus Sheath (Bilateral) Needle / Catheter Used: 100mm SonoPlex II Local Anesthetic Bolus (Indicate Dose Given): Injected in 3-5ml increments after negative blood aspiration, Half of Total block solution given into each side and Bupivacaine 0.25% Dose:: 19 ml Additives (Indicate Dose Given): Precedex Dose:: 100 mcg Ultrasound: Sterile probe cover and gel used Ultrasound Image Saved?: Yes Nerve Stimulator: Not Used Paresthesia: None Procedure Tolerated: No Complications Procedure Outcome: Successful Performed By: Kimani Torres
--- NOTE | 2022-01-17 13:12 | PDOC.DSDIS_ITS ---
Discharge Plan Disposition Patient Disposition: HOME Condition: Good Discharge Details Reason For Visit: umbilical hernia repair Attending Provider: Audra Mixon Primary Care Provider: Temo Narvaez Home Meds and New Rx's Prescriptions: New oxycodone 5 mg tablet 5 mg PO Q6H PRNQty: 14 0RF Continued lorazepam [Ativan] 1 mg tablet 1 mg PO QHS PRN (Reason: anxiety) Qty: 1 0RF Rx Instructions: Take the night before surgery lisinopril 20 MG tablet 20 mg PO DAILY glipizide 5 mg tablet 5 mg PO DAILY pioglitazone 15 mg tablet 15 mg PO DAILY albuterol sulfate 2.5 mg /3 mL (0.083 %) solution for nebulization 2.5 mg inhalation Q6H melatonin-lemon balm leaf extr 10-1 mg tablet 1 tab PO DAILY montelukast 10 MG tablet 10 mg PO DAILY omeprazole magnesium [Prilosec OTC] 20 MG tablet,delayed release (DR/EC) 20 mg PO DAILY loratadine 10 MG tablet 1 tab PO DAILY atorvastatin 40 mg tablet 40 mg PO DAILY Label Comments: TAKE 1 TABLET BY MOUTH DAILY AT BEDTIME FOR CHOLESTEROL metformin 1,000 mg tablet 1,000 mg PO DAILY Label Comments: TAKE 1 TABLET BY MOUTH TWICE DAILY fluticasone propion-salmeterol [Wixela Inhub] 500-50 mcg/dose blister with device 2 inh INHALATION BID Label Comments: INHALE 1 PUFF BY MOUTH TWICE DAILY Januvia 50 mg tablet 50 mg PO QHS Label Comments: Take 1 tablet by mouth daily for blood sugar Acetaminophen [Tylenol] 650 mg PO Q6H PRN PRNQty: 0 0RF ondansetron HCl 4 mg Tablet 4 mg PO Q6H PRN Discharge Instructions Instructions: Umbilical Hernia Repair (DC) Additional Instructions: Activity at Home after surgery: 1. Make sure you walk outside 2. You should be able to climb a flight of stairs 3. No driving while in pain or taking pain medications 4. No strenuous activity or heavy lifting for 4 weeks (open surgery) Diet, Nutrition, & wound healin. Avoid alcohol until after you are recovered from your surgery 2. Make sure to eat plenty of lean protein (meat, fish, eggs, cottage cheese, beans) 3. Eat a variety of fruits and vegetables. Eat plenty of high fiber foods to avoid constipation. 4. Drink plenty of liquids to stay hydrated and avoid constipation Pain Medications: 1. Tylenol 650mg every 6 hours as needed and Ibuprofen 600 mg every 6 hours as needed. You may alternate between the 2 medications every 3 hours 2. If a narcotic has been prescribed take as directed only for breakthrough pain For Constipation: 1. Take Milk of Magnesia or MiraLax as needed for constipation Other: 1. You may shower daily. Do not scrub the incisions 2. Do not soak the incisions for 1 week 3. You may alternate ice and heat as needed for pain and swelling Wound Care: 1. Keep the incisions clean and dry Please call our office if you develop: 1. Fevers >101.5 2. Nausea or Vomiting 3. Worsening pain 4. Redness and thick discharge from the wounds If after hours please call the Hospital at and ask to speak to the on-call surgeon Referrals: Audra Mixon MD [ [facility] STAFF PHYSICIAN] - Activity:: see above Remove Dressings/Wound Care:: Do Not Remove Shower/Bathe:: 24 hours Diet:: As Tolerated Discharge Orders Discharge Orders: Discharge Order (Routine); Ordered 01/17/22 Ordered By: Audra Mixon
--- NOTE | 2022-01-17 13:18 | ROE_ITS ---
Date of service: 01/17/22 Time of Service: 12:18 Operative Note Operative Note DATE OF PROCEDURE: 01/17/22 PRE-OP DIAGNOSIS: umbilical hernia POST-OP DIAGNOSIS: same PROCEDURE: Umbilical hernia repair with mesh SURGEON: Audra Mixon MANAGER OF HUMAN RESOURCES: Carin Lynn Refer to Anesthesia Record ESTIMATED BLOOD LOSS: 25 PATHOLOGY: none sent COMPLICATIONS: None Patient was transported to: PACU Patient's condition: stable Implants: Ventralex ST Hernia Patch: REF- [id number] LOT- [id number] Indications: Julio Cesar is a pleasant 41-year-old gentleman with an umbilical hernia.? We discussed the procedure in detail using a pamphlet.? I reviewed the risks and benefits with him.? His biggest concern is his anxiety in regards to having surgery.? We discussed a prescription for Ativan to take the night before surgery.? Once he is in same-day surgery and anesthesia has a chance to see him they can either give him in an M KO or IV Versed.? I will send anesthesia message just to let them know. Risks, benefits and complications have been reviewed. Complications include but are not limited to bleeding, pain, infection, injury to underlying structures like bowel and adverse reaction to the medication.? Questions were entertained and answered to their satisfaction and they wished to proceed. No guarantees were given or implied. Proceed with umbilical hernia repair with mesh under general Findings: incarcerated fat within a 1 cm hernia defect Procedure Description: After informed consent was obtained the patient was taken to the operating room and placed in a supine position. Monitors and SCDs were applied and a timeout was done. The patient's name, date of , procedure type, procedure site, allergies to medications, preoperative antibiotic, and DVT prophylaxis were all reviewed. Fire risk was assessed. Next anesthesia did a bilateral rectus block under ultrasound guidance. Please see their separate dictation. Once anesthesia was done the abdomen was prepped and draped in a sterile surgical fashion. An incision was made with a 10 blade under the umbilicus. Dissection was done with cautery through the subcutaneous tissues and through the umbilical stalk down to the fascia. The hernia defect was identified and measured 1 cm. A small amount of pre-peritoneal fat was noted within the defect. The fat was amputated. The peritoneum was swept for adhesions. No adhesions were noted. A 4.5 cm round mesh was then placed under the peritoneum and secured in 4 quarters with 2-0 Proline. Once the mesh was secured the tissues were irrigated with some normal saline. No bleeding was identified. The fascia was closed over the mesh with 2-0 vicryl running suture. 2-0 Vicryl was used to secure the umbilicus down to the fascia. The subcutaneous tissue was re-approximated with 2-0 vicryl. The dermis was re-approximated with a running 4-0 Vicryl. The skin was cleaned and dried and skin affix was applied. The patient was woken up and taken back to recovery in stable condition. There were no immediate complications. Sponge, instrument and needle counts were correct at the end of the case x2.
[2022-01-17] MEDS: Ondansetron 4 MG/2 ML VIAL IVP (13:57)
[2022-01-17] MEDS: fentaNYL 100 MCG/2 ML VIAL IVP (14:00)
[2022-01-17] MEDS: Albuterol/Ipratropium 3 ML UPD VIAL UPD (14:12)
[2022-01-17] MEDS: Ketorolac 15 MG/ML VIAL IVP (14:25)
--- NOTE | 2022-01-17 15:17 | W.ANESPOSTOP ---
Postoperative Evaluation Date, Time and Location Date Performed: 01/17/22 Time Performed: 15:17 Patient Location: Day Surgery Unit Vital Signs Most Recent Imported Vital Signs: Most Recent Vital Signs Temp Pulse Resp BP Pulse Ox 36.5 C 74 14 111/61 94 01/17/22 15:00 01/17/22 15:00 01/17/22 15:00 01/17/22 15:00 01/17/22 15:00 Pain Score Most Recent Pain Score: Most Recent Pain Score Pain Level 7 01/17/22 15:00 Assessment Mental Status: Awake (Alert & Oriented to Patient Baseline) Airway and Respiratory Function: Patent airway with normal (patient baseline) respiratory exam Cardiovascular Function: Hemodynamically Stable Hydration Status: Adequately Hydrated Nausea & Vomiting: No Nausea or Vomiting Pain: Pain is Moderate or Severe Postoperative Pain Management: Pain being addressed with medication (in DSU) Peripheral Nerve Block: Patient did not receive a nerve block
[2022-01-17] MEDS: oxyCODONE 5 MG TAB PO (15:23)
== END 2022-01-17 16:00 | disposition home or self-care (01) ==
PROVIDERS: PCP Family Medicine; Visit Provider Surgery
PROC: (CPT 49585; principal; 2022-01-17 12:00)
DX: K42.9 Umbilical hernia without obstruction or gangrene (principal); G47.33 Obstructive sleep apnea (adult) (pediatric); K21.9 Gastro-esophageal reflux disease without esophagitis; J45.40 Moderate persistent asthma, uncomplicated; F17.210 Nicotine dependence, cigarettes, uncomplicated
CPT/HCPCS: 49585; 76942; C1781; J0690; J1100; J1885; J2250; J2405; J2704; J3010; J7620

== ENCOUNTER 2022-01-23 12:54 | Outpatient (REF) | payer BC, SELFPAY | END 2022-01-23 12:55 | disposition home or self-care (01) | LOC: LBN 12:54 | PROVIDERS: PCP Family Medicine; Visit Provider Physician Assistant Medical | DX: L02.214 Cutaneous abscess of groin (principal) | CPT/HCPCS: 87070; 87205 ==

== ENCOUNTER 2022-08-12 07:04 | Emergency (ER) | payer BC, SELFPAY ==
[2022-08-12 07:06] VITALS: BP 155/89; PULSE 84; RESP 18; TEMP 36.6; O2SAT 99
--- NOTE | 2022-08-12 07:12 | ED.GENADUL_ITS ---
Discharge Plan Disposition Patient Disposition: Home Condition: Stable Discharge Details Clinical Impression: TMJ arthralgia, Acute effusion of right ear Primary Care Provider: Temo Narvaez ED Provider: Ashley Cary Home Meds and New Rx's Prescriptions: New methylprednisolone [Medrol (Nathaniel)] 4 mg tablets,dose pack See Rx Instructions .ROUTE .COMPLEX Qty: 21 0RF Rx Instructions: orally per package directions Continued lisinopril 20 MG tablet 20 mg PO DAILY glipizide 5 mg tablet 5 mg PO DAILY pioglitazone 15 mg tablet 15 mg PO DAILY albuterol sulfate 2.5 mg /3 mL (0.083 %) solution for nebulization 2.5 mg inhalation Q6H melatonin-lemon balm leaf extr 10-1 mg tablet 1 tab PO DAILY montelukast 10 MG tablet 10 mg PO DAILY omeprazole magnesium [Prilosec OTC] 20 MG tablet,delayed release (DR/EC) 20 mg PO DAILY loratadine 10 MG tablet 1 tab PO DAILY atorvastatin 40 mg tablet 40 mg PO DAILY Label Comments: TAKE 1 TABLET BY MOUTH DAILY AT BEDTIME FOR CHOLESTEROL metformin 1,000 mg tablet 1,000 mg PO DAILY Label Comments: TAKE 1 TABLET BY MOUTH TWICE DAILY fluticasone propion-salmeterol [Wixela Inhub] 500-50 mcg/dose blister with device 2 inh INHALATION BID Label Comments: INHALE 1 PUFF BY MOUTH TWICE DAILY Januvia 50 mg tablet 50 mg PO QHS Label Comments: Take 1 tablet by mouth daily for blood sugar Acetaminophen [Tylenol] 650 mg PO Q6H PRN PRNQty: 0 0RF ondansetron HCl 4 mg Tablet 4 mg PO Q6H PRN Discharge Instructions Instructions: Temporomandibular Disorder (ED), Arthritis (ED) Additional Instructions: It is suspected that your jaw pain is secondary to arthritis in your right temporomandibular joint. This can be secondary to excessive chewing or grinding your teeth. It is recommended to eat soft foods to limit chewing and to allow your jaw to rest as much as possible. You may also have fluid in your right ear which can cause a popping or cracking sound. This can be secondary to inflammation within your ear which can be related to a viral illness. Alternate tylenol and motrin as needed and directed for pain. Take the tramadol for pain not relieved with Tylenol or Motrin. A prescription for steroids has been sent electronically to your pharmacy to take as directed until finished. Call a dentist on the dental list to schedule follow-up appointment for reevaluation. Continue to wear your bite block as directed. Follow-up with your primary care doctor in 1 week. Return to the emergency department with any worsening or new concerning symptoms. Discharge Data Discharge Physician: Ashley Cary Medical Decision Making 41-year-old male with a history of obesity, hypertension, hyperlipidemia, GERD, gout, diabetes, asthma and history of chewing tobacco presents with 1 month of right sided jaw pain, worse this morning and cracking and popping in his right ear for the past week. Patient appears uncomfortable but nontoxic. His blood pressure is moderately elevated but remainder of vitals within normal limits. He has reproducible tenderness overlying the right TMJ to palpation and with opening and closing his jaw. There is no overlying cellulitis, rash or trauma. There is no evidence of skin abscess. His right TM appears dull and minimally erythematous but there is no drainage or signs of otitis externa. No tenderness to palpation of teeth and normal oropharynx. No drooling, trismus, submandibular swelling or lymphadenopathy. Suspect his right jaw pain is secondary to TMJ arthralgia. His right ear popping and cracking may be related to his TMJ or may be related to fluid within his right ear but there are no concerning signs of otitis media. Do not see an indication for antibiotics. As patient had no relief with Tylenol or ibuprofen, will give a dose of tramadol now and 2 tabs to go. We will also cover with steroids which will help with your inflammation and an acute flare of right TMJ arthralgia. He states he has not seen a dentist recently. He was given a dental follow-up list and advised to follow-up for reevaluation and that he might need a more personalized bite block. He is advised to follow a diet of soft foods and to continue Tylenol and ibuprofen. Advised to check his sugars regularly as steroids can raise his blood sugar. A prescription for Medrol Dosepak sent electronically to his pharmacy. Advised to follow up with the primary care doctor for re-evaluation. Usual and customary return precautions given prior to discharge. Medical Records Medical records reviewed: Yes I reviewed the patient's medical records. HPI General Mode of arrival: ambulatory . Date/Time Provider Initiated Documentation: 08/12/22 07:11 . Limitations to Documentation: no limitations . Information obtained by: patient . HPI Narrative: Patient is a 41-year-old male with a history of obesity, hypertension, hyperlipidemia, diabetes, GERD, history of chewing tobacco, asthma who presents with 1 month of right-sided jaw pain and 1 week of cracking and popping in his right ear. He states he awoke this morning and the right jaw pain was much worse. Patient states he got an [id number] bite block which he custom made for his teeth recently wear at nighttime. Patient states he chews tobacco but states that tobacco mainly stays in his right lower anterior tooth. Patient states he took Tylenol and ibuprofen this morning for pain without relief. He denies any pain within his right ear, dental pain, sore throat, fever, difficulty swallowing, coughing, neck pain or headache. Related Data Home Medications Medication Instructions Recorded Confirmed montelukast 10 mg tablet 10 mg PO DAILY 11/25/12 08/12/22 omeprazole magnesium 20 mg 20 mg PO DAILY 11/25/12 08/12/22 tablet,delayed release (Prilosec OTC) loratadine 10 mg tablet 1 tab PO DAILY 12/04/13 01/23/22 lisinopril 20 mg tablet 20 mg PO DAILY 01/30/18 08/12/22 ondansetron HCl 4 mg tablet 4 mg PO Q6H PRN 08/29/19 08/12/22 atorvastatin 40 mg tablet 40 mg PO DAILY 03/02/21 08/12/22 fluticasone 500 mcg-salmeterol 50 2 inh inhalation BID 03/02/21 08/12/22 mcg/dose blistr powdr for inhalation (Wixela Inhub) metformin 1,000 mg tablet 1,000 mg PO DAILY 03/02/21 08/12/22 sitagliptin phosphate 50 mg tablet 50 mg PO QHS 03/02/21 08/12/22 (Januvia) Acetaminophen [Tylenol] 650 mg PO Q6H PRN PRN ##0 03/04/21 08/12/22 albuterol sulfate 2.5 mg/3 mL 2.5 mg inhalation Q6H 12/31/21 08/12/22 (0.083 %) solution for nebulization glipizide 5 mg tablet 5 mg PO DAILY 12/31/21 08/12/22 melatonin 10 mg-lemon balm leaf 1 tab PO DAILY 12/31/21 08/12/22 extract 1 mg tablet pioglitazone 15 mg tablet 15 mg PO DAILY 12/31/21 08/12/22 methylprednisolone 4 mg tablets in See Rx Instructions PO .COMPLEX 08/12/22 a dose pack (Medrol (Nathaniel)) #21 dose pk Previous Rx's Medication Instructions Recorded Acetaminophen [Tylenol] 650 mg PO Q6H PRN PRN ##0 03/04/21 methylprednisolone 4 mg tablets in See Rx Instructions PO .COMPLEX 08/12/22 a dose pack (Medrol (Nathaniel)) #21 dose pk Allergies Allergy/AdvReac Type Severity Reaction Status Date / Time exenatide Allergy Intermediate Diarrhea Verified 08/12/22 07:09 [From Bydureon BCise] hydromorphone [From Dilaudid] AdvReac Other (See Verified 08/12/22 07:09 Comment) morphine AdvReac severe Verified 08/12/22 07:09 vomiting General Stated Complaint: FacialProb TERRI: 4 Review of Systems All systems reviewed & are unremarkable except as noted in HPI and below Constitutional Constitutional: Reports as per HPI, Denies chills and Denies fever(s) Eyes Eyes: Denies blurry vision ENT Ears, Nose, Mouth, and Throat: Denies dizziness, Reports facial pain (R jaw pain), Denies sore throat, Denies throat swelling and Reports other (ear popping and crackling) Cardiovascular Cardiovascular: Denies chest pain and Denies dyspnea Respiratory Respiratory: Denies cough and Denies dyspnea Gastrointestinal Gastrointestinal: Denies abdominal pain, Denies diarrhea and Denies vomiting Genitourinary Genitourinary: Denies hematuria and Denies dysuria Musculoskeletal Musculoskeletal: Denies back pain and Denies numbness Integumentary/Breasts Skin/Breast: Denies lesions and Denies rash Neurologic Neurologic: Denies dizziness, Denies localized weakness and Denies numbness Allergic/Immunologic Allergic/Immunologic: Denies throat swelling PFSH All Active Problems (Updated 08/12/22 @ 07:35 by Ashley Cary DO) TMJ arthralgia (Acute) Acute effusion of right ear (Acute) Umbilical hernia (Acute) PREM (obstructive sleep apnea) (Chronic) Medical History (Updated 08/12/22 @ 07:35 by Ashley Cary DO) Abdominal pain Allergic rhinitis Anxiety Asthma, moderate persistent Cervical spine disease Colitis 03/22/19 Dr Debby Luciano, [facility] Cough Diabetes mellitus type II, non insulin dependent Pt states not anymore Diarrhea Diverticulosis DVT prophylaxis Dyslipidemia Enterocolitis Eosinophilia Ethmoid sinusitis Fatty liver Fever GERD (gastroesophageal reflux disease) Gout Headache Hyperlipidemia Hypertension Leukocytosis (leucocytosis) Microscopic colitis Obstructive sleep apnea SIRS (systemic inflammatory response syndrome) Tobacco abuse Surgical History Excision, Pilonidal Cyst H/O vasectomy Hx of fusion of cervical spine February 2018 - Day S/P colonoscopy 03/22/19 Social History Smoking/Tobacco Use Status: Current every day Tobacco Type: cigarettes Smoking risk assessment performed?: Yes Alcohol Intake: current Alcohol Intake frequency: holidays/special occasions only Drug use: Never Substance use type: does not use Do you feel safe at home: Yes ( in room, unable to assess privately) Do you feel safe in your relationship?: Yes Exam Const General: cooperative, healthy appearing and no acute distress HENMT Head: normal to inspection Ears: hearing grossly normal bilaterally, external ears normal and TM abnormal dull on the right and on the left and erythematous on the right (minimal) General nose exam: external nose normal Face and sinus: normal facial exam and no sinus tenderness Face images: 1. Tenderness to palpation overlying right TMJ that is reproducible with palpation and with opening and closing jaw. There is no significant edema, erythema, rash, lesions, induration or fluctuance. Mouth: oral mucosae normal Teeth and gingiva: dentition normal Throat: posterior oropharynx normal Eyes General: appearance normal, both eyes and all related structures Neck Neck: normal visual inspection, no lymphadenopathy, no meningeal signs, trachea midline, supple, no anterior neck swelling and No submandibular swelling Resp Effort & Inspection: normal respiratory effort and able to speak in complete sentences Cardio Rate: regular rate Skin General skin exam: no rashes or lesions noted Neuro General: patient alert, patient awake and patient oriented x3 Motor: muscle tone normal throughout Extrem General: normal to inspection and full ROM Psych Appearance: grossly normal Affect: normal affect Course Vital Signs Vital signs: Vital Signs Temperature 97.8 F 12/27/22 07:06 Pulse 84 08/12/22 07:06 Respiratory Rate 18 08/12/22 07:06 Blood Pressure 155/89 H 08/12/22 07:06 Pulse Oximetry 99 08/12/22 07:06 Temperature 97.8 F 08/12/22 07:06 Pulse 84 08/12/22 07:06 Respiratory Rate 18 08/12/22 07:06 Respiratory Effort 08/12/22 07:09 Blood Pressure 155/89 H 08/12/22 07:06 Blood Pressure Position Sitting 08/12/22 07:06 Pulse Oximetry 99 08/12/22 07:06 Oxygen Delivery Method Room Air 08/12/22 07:06 Oxygen Flow Rate 0 08/12/22 07:06 Pain Level 8 08/12/22 07:06
[2022-08-12] MEDS: predniSONE 20 MG TAB 40 MG PO (07:40)
[2022-08-12] MEDS: traMADol 50 MG TAB PO (07:40)
== END 2022-08-12 07:49 | disposition home or self-care (01) ==
PROVIDERS: Emergency Provider Physician Assistant; PCP Family Medicine
DX: M26.621 Arthralgia of right temporomandibular joint (principal); H92.01 Otalgia, right ear
CPT/HCPCS: 99283; J7512

== ENCOUNTER 2022-11-23 14:05 | Emergency (ER) | payer BC, SELFPAY ==
[2022-11-23 14:07] VITALS: BP 136/89; PULSE 104; RESP 20; O2SAT 97
[2022-11-23] MEDS: Ibuprofen 400 MG TAB (14:45)
[2022-11-23] MEDS: Acetaminophen 500 MG TAB (14:45)
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
[2022-11-23] MEDS: Cephalexin 500 MG CAP PO (15:32)
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
[2022-11-23 16:03] VITALS: BP 119/76; PULSE 84; RESP 16; O2SAT 97
== END 2022-11-23 16:05 | disposition home or self-care (01) ==
PROVIDERS: Emergency Provider Student in an Organized Health Care Education/Training Program; PCP Family Medicine
DX: S00.83XA Contusion of other part of head, initial encounter (principal); Y04.2XXA Assault by strike against or bumped into by another person, initial encounter; S30.851A Superficial foreign body of abdominal wall, initial encounter; S06.0X0A Concussion without loss of consciousness, initial encounter; W17.89XA Other fall from one level to another, initial encounter
CPT/HCPCS: 99284; 70450; 70486; 99283

== ENCOUNTER 2022-12-17 17:59 | Outpatient (REF) | payer BC, SELFPAY ==
[2022-12-17 19:08] LABS: ALT 85 U/L (16-63); AST 40 U/L (15-37); Alkaline Phosphatase 102 U/L (46-116); Anion Gap 10.7 mmol/L (3-11); BUN 19 mg/dL (7-18); Bilirubin, Total 0.3 mg/dL (0.2-1.0); CO2 26.3 mmol/L (21.0-32.0); Calcium 9.5 mg/dL (8.5-10.1); Chloride 104 mmol/L (98-107); Estimated GFR 96.97 (mL/min/1.73m2); Glucose 175 mg/dL (74-106); Potassium 4.5 mmol/L (3.5-5.1); Sodium 141 mmol/L (136-145); Total Protein 7.8 g/dL (6.4-8.2)
[2022-12-17 19:16] LABS: Abs Immature Grans 0.18 10^3/uL (0.0-0.06); Absolute Basophil Count 0.09 10^3/uL (0.0-0.2); Absolute Eosinophil Count 0.25 10^3/uL (0.0-0.7); Absolute Monocyte Count 0.87 10^3/uL (0.1-0.8); Basophils % 0.6; Eosinophils % 1.7; HCT 45.4 % (40.0-50.0); HGB 15.5 g/dL (13.5-17.5); Immature Grans % 1.2; Lymphocytes % 23.7; MCH 29.4 pg (27.0-33.0); MCHC 34.1 % (32.0-36.0); MCV 86 fL (80-95); MPV 11.1 fL (8.0-11.0); Neutrophils % 66.8; Platelet Count 295 10^3/uL (130-400); RBC 5.27 10^6/uL (4.36-5.78); RDW 12.1 % (11.8-14.1); RDW-SD 38.2 fL; WBC 14.57 10^3/uL (4.4-10.8)
[2022-12-17 19:21] LABS: Absolute Lymphocyte Count 3.45 10^3/uL (1.2-3.4); Absolute Neutrophil Count 9.73 10^3/uL (1.2-6.7)
[2022-12-17 20:25] LABS: COMMENT (LAB VIEW ONLY) 258.93 mg/dL; Microalb ug/mg Crea 9.3 ug/mg Cr
== END 2022-12-17 18:00 | disposition home or self-care (01) ==
LOC: NCHCN 17:59
PROVIDERS: PCP Family Medicine; Visit Provider Family Medicine
DX: D72.829 Elevated white blood cell count, unspecified (principal); K76.0 Fatty (change of) liver, not elsewhere classified; E11.9 Type 2 diabetes mellitus without complications
CPT/HCPCS: 80053; 82043; 82570; 85025

== ENCOUNTER 2023-05-05 13:32 | Emergency (ER) | payer BC, SELFPAY ==
[2023-05-05 13:43] VITALS: BP 125/85; PULSE 110; RESP 20; TEMP 37.2; O2SAT 100
--- NOTE | 2023-05-05 14:09 | ED.GENADUL_ITS ---
Discharge Plan Disposition Patient Disposition: Home Condition: Stable Discharge Details Clinical Impression: Abdominal pain, Colitis Primary Care Provider: Temo Narvaez ED Provider: Kye Acharya [place] Meds and New Rx's Prescriptions: New ondansetron 4 mg tablet,disintegrating 4 mg PO Q8H PRN (Reason: nausea and vomiting) Qty: 30 0RF amoxicillin-pot clavulanate 875-125 mg tablet 1 tab PO BID Qty: 14 0RF Continued lisinopril 20 MG tablet 20 mg PO DAILY glipizide 5 mg tablet 5 mg PO DAILY pioglitazone 15 mg tablet 15 mg PO DAILY albuterol sulfate 2.5 mg /3 mL (0.083 %) solution for nebulization 2.5 mg inhalation Q6H melatonin-lemon balm leaf extr 10-1 mg tablet 1 tab PO DAILY montelukast 10 MG tablet 10 mg PO DAILY omeprazole magnesium [Prilosec OTC] 20 MG tablet,delayed release (DR/EC) 20 mg PO DAILY loratadine 10 MG tablet 1 tab PO DAILY atorvastatin 40 mg tablet 40 mg PO DAILY Patient Comments: TAKE 1 TABLET BY MOUTH DAILY AT BEDTIME FOR CHOLESTEROL metformin 1,000 mg tablet 1,000 mg PO DAILY Patient Comments: TAKE 1 TABLET BY MOUTH TWICE DAILY fluticasone propion-salmeterol [Wixela Inhub] 500-50 mcg/dose blister with device 2 inh INHALATION BID Patient Comments: INHALE 1 PUFF BY MOUTH TWICE DAILY Januvia 50 mg tablet 50 mg PO QHS Patient Comments: Take 1 tablet by mouth daily for blood sugar Acetaminophen [Tylenol] 650 mg PO Q6H PRN PRNQty: 0 0RF methylprednisolone [Medrol (Nathaniel)] 4 mg tablets,dose pack See Rx Instructions .ROUTE .COMPLEX Qty: 21 0RF Rx Instructions: orally per package directions ondansetron HCl 4 mg Tablet 4 mg PO Q6H PRN Discharge Instructions Instructions: Colitis (ED) Additional Instructions: your cat scan showed that you have inflammation of your colon. Your spleen was mildly enlarged, your primary care provider should be made aware of this when you follow up with them. you can take 1000mg tylenol and 600mg ibuprofen every 6 hours as needed if you have severe worsening pain, feel more ill or have persistent vomiting return to the emergency department Medical Decision Making 42 yo male with hx of dm, prem, prior colitis in the past, who comes in with lower abdominal cramping since around 10pm last night. no vomiting but has had nausea and also having diarrhea. Denies chest pain, dyspnea, fevers. He is stable on arrival, has tenderness in the rlq and llq, no distention or guarding. Suspect colitis, will obtain cbc, cmp, lipase and ct abd/pelvis to evaluate for diverticulitis vs appendicitis. labs show wbc of 15, mag 1.5, tolerating po so do not feel iv mag indicated. He has colitis on ct, also enlarged spleen. Has no tenderness now on exam, sleeping on reassessment and awakens easily to voice. Will place on augmentin for colitis, advised to f/u with pcp regarding the enlarged spleen. Return precautions given Differential Diagnosis Differential Diagnosis: colitis, diverticulitis, appendicitis Medical Records Medical records reviewed: Yes I reviewed the patient's medical records. Imaging Data Radiologic Study: Attestation: I personally reviewed and interpreted this imaging study as follows: Imaging: CT Scan Radiologist's impression: IMPRESSION: Splenomegaly 13.9 cm.. Differential diagnosis of splenomegaly is lymphoma/leukemia, mononucleosis, hemolytic anemia, portal hypertension. Low- attenuation bowel wall thickening is seen throughout the colon consistent with colitis. Differential diagnosis includes infectious and inflammatory etiologies.. Lab Data Lab results reviewed: Yes I reviewed the patient's lab results. HPI General Mode of arrival: ambulatory . Date/Time Provider Initiated Documentation: 05/05/23 13:35 . Limitations to Documentation: no limitations . Information obtained by: patient . History of Present Illness 42 year old M presents to the emergency department with the chief complaint of abdominal pain, described as moderate, Quality is described as sharp, Patient started experiencing this day(s) (1) and it has been constant. No relieving factors improve symptom(s), No exacerbating factors reported . Patient notes denies chest pain and shortness of breath. Patient did receive the following treatments prior to arrival, none Related Data Home Medications Medication Instructions Recorded Confirmed montelukast 10 mg tablet 10 mg PO DAILY 11/25/12 05/05/23 omeprazole magnesium 20 mg 20 mg PO DAILY 11/25/12 05/05/23 tablet,delayed release (Prilosec OTC) loratadine 10 mg tablet 1 tab PO DAILY 12/04/13 05/05/23 lisinopril 20 mg tablet 20 mg PO DAILY 01/30/18 05/05/23 ondansetron HCl 4 mg tablet 4 mg PO Q6H PRN 08/29/19 05/05/23 atorvastatin 40 mg tablet 40 mg PO DAILY 03/02/21 05/05/23 fluticasone 500 mcg-salmeterol 50 2 inh inhalation BID 03/02/21 05/05/23 mcg/dose blistr powdr for inhalation (Wixela Inhub) metformin 1,000 mg tablet 1,000 mg PO DAILY 03/02/21 05/05/23 sitagliptin phosphate 50 mg tablet 50 mg PO QHS 03/02/21 11/23/22 (Januvia) Acetaminophen [Tylenol] 650 mg PO Q6H PRN PRN ##0 03/04/21 05/05/23 albuterol sulfate 2.5 mg/3 mL 2.5 mg inhalation Q6H 12/31/21 05/05/23 (0.083 %) solution for nebulization glipizide 5 mg tablet 5 mg PO DAILY 12/31/21 05/05/23 melatonin 10 mg-lemon balm leaf 1 tab PO DAILY 12/31/21 05/05/23 extract 1 mg tablet pioglitazone 15 mg tablet 15 mg PO DAILY 12/31/21 05/05/23 methylprednisolone 4 mg tablets in See Rx Instructions PO .COMPLEX 08/12/22 a dose pack ([employer])) #21 dose pk amoxicillin 875 mg-potassium 1 tab PO BID #14 tabs 05/05/23 clavulanate 125 mg tablet ondansetron 4 mg disintegrating 4 mg PO Q8H PRN nausea and 05/05/23 tablet vomiting #30 tabs Previous Rx's Medication Instructions Recorded Acetaminophen [Tylenol] 650 mg PO Q6H PRN PRN ##0 03/04/21 methylprednisolone 4 mg tablets in See Rx Instructions PO .COMPLEX 08/12/22 a dose pack ([employer])) #21 dose pk amoxicillin 875 mg-potassium 1 tab PO BID #14 tabs 05/05/23 clavulanate 125 mg tablet ondansetron 4 mg disintegrating 4 mg PO Q8H PRN nausea and 05/05/23 tablet vomiting #30 tabs Allergies Allergy/AdvReac Type Severity Reaction Status Date / Time exenatide Allergy Intermediate Diarrhea Verified 11/23/22 14:11 [From Bydureon BCise] hydromorphone [From Dilaudid] AdvReac Other (See Verified 11/23/22 14:11 Comment) morphine AdvReac severe Verified 11/23/22 14:11 vomiting General Stated Complaint: Abd Prob TERRI: 3 Review of Systems All systems reviewed & are unremarkable except as noted in HPI and below Constitutional Constitutional: Denies chills, Denies fever(s) and Denies weakness Cardiovascular Cardiovascular: Denies chest pain and Denies dyspnea Respiratory Respiratory: Denies cough and Denies dyspnea Gastrointestinal Gastrointestinal: Reports cramping, Reports diarrhea, Reports nausea and Denies vomiting Integumentary/Breasts Skin/Breast: Denies rash Neurologic Neurologic: Denies weakness PFSH All Active Problems (Updated 05/05/23 @ 17:09 by Kye Acharya MD) Abdominal pain (Acute) Colitis (Acute) Umbilical hernia (Acute) PREM (obstructive sleep apnea) (Chronic) Medical History Abdominal pain Allergic rhinitis Anxiety Asthma, moderate persistent Cervical spine disease Colitis 03/22/19 Dr Debby Luciano, [facility] Cough Diabetes mellitus type II, non insulin dependent Pt states not anymore Diarrhea Diverticulosis DVT prophylaxis Dyslipidemia Enterocolitis Eosinophilia Ethmoid sinusitis Fatty liver Fever GERD (gastroesophageal reflux disease) Gout Headache Hyperlipidemia Hypertension Leukocytosis (leucocytosis) Microscopic colitis Obstructive sleep apnea SIRS (systemic inflammatory response syndrome) Tobacco abuse Surgical History Excision, Pilonidal Cyst H/O vasectomy Hx of fusion of cervical spine February 2018 - [facility] S/P colonoscopy 03/22/19 Social History Smoking/Tobacco Use Status: Current every day Tobacco Type: cigarettes Smoking risk assessment performed?: Yes Alcohol Intake: current Alcohol Intake frequency: holidays/special occasions only Drug use: Never Substance use type: does not use Do you feel safe at home: Yes Do you feel safe in your relationship?: Yes Exam Const General: no acute distress Orientation: alert HENMT Head: normal to inspection Ears: external ears normal General nose exam: external nose normal Mouth: moist mucous membranes Eyes General: appearance normal, both eyes and all related structures Neck Neck: normal visual inspection Resp Effort & Inspection: normal respiratory effort and able to speak in complete sentences Cardio Rate: regular rate GI Palpation: soft and tender Skin General skin exam: no rashes or lesions noted Neuro General: patient alert and patient oriented x3 Extrem General: normal to inspection Psych Mental Status: mental status grossly normal Course Vital Signs Vital signs: Vital Signs Temperature 37.2 C 05/05/23 13:43 Pulse 110 H 05/05/23 13:43 Respiratory Rate 05/05/23 13:43 Blood Pressure 125/85 05/05/23 13:43 Pulse Oximetry 100 05/05/23 13:43 Temperature 37.2 C 05/05/23 13:43 Temperature Source Oral 05/05/23 13:43 Pulse 110 H 05/05/23 13:43 Respiratory Rate 05/05/23 13:43 Respiratory Effort Normal, Non-Labored 05/05/23 13:50 Blood Pressure 125/85 05/05/23 13:43 Blood Pressure Position Sitting 05/05/23 13:43 Pulse Oximetry 100 05/05/23 13:43 Oxygen Delivery Method Room Air 05/05/23 13:43 Oxygen Flow Rate 0 05/05/23 13:43 Pain Level 5 05/05/23 13:43
[2023-05-05] MEDS: Normal Saline 1,000 ML 1000 ML IV (14:15)
[2023-05-05] MEDS: Ketorolac 15 MG/ML VIAL IVP (14:15)
[2023-05-05 14:22] LABS: BE (Venous) 0 mmol/L (-2-3); HCO3 (Venous) 26 mmol/L (23-28); O2 Sat (Venous) 72 %; TCO2 (Venous) 24 mmol/L (24-29); pCO2 (Venous) 48 mmHg (41-51); pH (Venous) 7.34 (7.31-7.41); pO2 (Venous) 41 mmHg
[2023-05-05 14:23] LABS: Abs Immature Grans 0.07 10^3/uL (0.0-0.06); Absolute Basophil Count 0.09 10^3/uL (0.0-0.2); Absolute Eosinophil Count 0.24 10^3/uL (0.0-0.7); Basophils % 0.6; Eosinophils % 1.6; HCT 47.1 % (40.0-50.0); Immature Grans % 0.5; Lymphocytes % 18.1; MCH 28.7 pg (27.0-33.0); MCV 84 fL (80-95); MPV 10.1 fL (8.0-11.0); Monocytes % 6.3; Neutrophils % 72.9; Platelet Count 297 10^3/uL (130-400); RBC 5.58 10^6/uL (4.36-5.78); RDW 12.3 % (11.8-14.1); RDW-SD 37.5 fL; WBC 15.16 10^3/uL (4.4-10.8)
[2023-05-05 14:27] LABS: Absolute Lymphocyte Count 2.74 10^3/uL (1.2-3.4); Absolute Monocyte Count 0.96 10^3/uL (0.1-0.8); Absolute Neutrophil Count 11.05 10^3/uL (1.2-6.7)
[2023-05-05] MEDS: Droperidol 5 MG/2 ML VIAL 2.5 MG IVP (14:36)
[2023-05-05 14:39] LABS: ALT 69 U/L (16-63); AST 23 U/L (15-37); Alkaline Phosphatase 110 U/L (46-116); Anion Gap 10.5 mmol/L (3-11); BUN 11 mg/dL (7-18); Bilirubin, Total 0.5 mg/dL (0.2-1.0); CO2 26.5 mmol/L (21.0-32.0); CREATININE 0.9 mg/dL (0.70-1.30); Calcium 9.7 mg/dL (8.5-10.1); Chloride 100 mmol/L (98-107); Estimated GFR 109.36 (mL/min/1.73m2); Glucose 329 mg/dL (74-106); Lipase 33 U/L (16-77); Magnesium 1.5 mg/dL (1.8-2.4); Potassium 3.9 mmol/L (3.5-5.1); Sodium 137 mmol/L (136-145)
[2023-05-05] MEDS: MAGNESIUM SULFATE 1 GM/100 ML BAG IVPB (15:00)
--- NOTE | 2023-05-05 15:00 | DI.CT_ITS ---
Exam(s) CT ABDOMEN PELVIS W EXAM: CT ABDOMEN PELVIS W CLINICAL HISTORY: lower abdominal pain. TECHNIQUE: Imaging Protocol: Axial computed tomography images with coronal and sagittal reformatted images were created and reviewed CONTRAST MATERIAL: Intravenous: Omnipaque 350 Contrast volume:100 ml Oral: / no COMPARISON: CT CT ABDOMEN PELVIS W from 04/02/2020 FINDINGS: ABDOMEN: Lung Bases: Normal where visualized. Liver: Hepatic steatosis again noted. Liver mildly enlarged. No measurable mass. Gallbladder and biliary tract: No radiodense calculus or dilation. Pancreas: Normal density, no abnormal calcifications or inflammatory process. Spleen: Borderline enlarged. Kidneys: Normal size, contour and axis. No radiodense stones or obstructive uropathy. No suspicious m asses seen. Adrenal glands: No masses seen. Vasculature: Abdominal aorta non-dilated. Soft tissues: Unremarkable. PELVIS: Bladder: Nearly empty. Bowel: No significant stool. Diffuse colonic wall thickening consistent with colitis. Diverticulosi s. No evidence of diverticulitis. No obstruction. Appendix normal. Peritoneal cavity: No ascites, collection or mesenteric inflammatory response. Bones: Unremarkable for age. Reproductive organs: Within normal limits. Lymph nodes: Unremarkable. IMPRESSION:: Diffuse colonic wall thickening, consistent with colitis. RADIATION DOSE DELIVERED: 1,140.72mGy.cm Total DLP DATA REPOSITORY: All CT scans at this facility are submitted to the National Radiology Data Registry (NRDR) Dose Index Registry (DIR) with the [employer] ([employer]). RADIATION OPTIMIZATION: All CT scans at this facility use at least one of these dose optimization te chniques: automated exposure control; mA and/or kV adjustment per patient size (includes targeted exa ms where dose is matched to clinical indication); or iterative reconstruction.
[2023-05-05 15:58] LABS: Bilirubin Negative (Negative); Blood Negative (Negative); Clarity Clear (Clear); Glucose >=1000 mg/dL (Negative); Ketones Negative (Negative); Leukocyte Esterase Negative (Negative); Nitrite Negative (Negative); Specific Gravity >= 1.030 (1.005-1.025); Urobilinogen 0.2 mg/dL (Up to 0.2); pH 5.5 (5-8)
[2023-05-05] MEDS: Omnipaque 350 MG/ML 100 ML BTL IJ (16:02)
[2023-05-05] MEDS: Normal Saline - Diluent 50 ML VIAL IJ (16:07)
--- NOTE | 2023-05-05 16:31 | DI.VRAD_ITS ---
PROCEDURE INFORMATION: Exam: CT Abdomen And Pelvis With Contrast Exam date and time: 05/05/2023 4:02 PM Age: 42 years old Clinical indication: Localized; Patient HX: Lower central abdominal pain TECHNIQUE: Imaging protocol: Computed tomography of the abdomen and pelvis with contrast. COMPARISON: CT ABDOMEN PELVIS W 04/02/2020 1:46 PM FINDINGS: Liver: Normal. No mass. Gallbladder and bile ducts: Normal. No calcified stones. No ductal dilation. Pancreas: Normal. No ductal dilation. Spleen: Splenomegaly 13.9 cm.. Adrenal glands: Normal. No mass. Kidneys and ureters: Normal. No hydronephrosis. Stomach and bowel: Diverticulosis of the rectosigmoid. No diverticulitis Low-attenuation bowel wall thickening is seen throughout the colon consistent with colitis. Differential diagnosis includes infectious and inflammatory etiologies.. Appendix: Normal appendix Intraperitoneal space: Unremarkable. No free air. No significant fluid collection. Vasculature: Unremarkable. No abdominal aortic aneurysm. Lymph nodes: Unremarkable. No enlarged lymph nodes. Urinary bladder: Unremarkable as visualized. Reproductive: Unremarkable as visualized. Bones/joints: Unremarkable. No acute fracture. Soft tissues: Unremarkable. IMPRESSION: Splenomegaly 13.9 cm.. Differential diagnosis of splenomegaly is lymphoma/leukemia, mononucleosis, hemolytic anemia, portal hypertension. Low-attenuation bowel wall thickening is seen throughout the colon consistent with colitis. Differential diagnosis includes infectious and inflammatory etiologies.. Dictated and Authenticated by: Norma Palencia MD. Ordering:JORDIN Fishman MD
[2023-05-05] MEDS: Amoxicillin 875/Clav. 125 TAB PO (17:33)
== END 2023-05-05 17:36 | disposition home or self-care (01) ==
PROVIDERS: Emergency Provider Emergency Medicine; PCP Family Medicine
DX: R10.32 Left lower quadrant pain (principal); R10.31 Right lower quadrant pain; K52.9 Noninfective gastroenteritis and colitis, unspecified; R16.1 Splenomegaly, not elsewhere classified
CPT/HCPCS: 80053; 82805; 83690; 96361; 96365; 96366; 96375; 99285; 74177; 81003; 83735; 85025; 99284; J1790; J1885; J3475; J3490

== ENCOUNTER 2023-05-20 19:24 | Outpatient (REF) | payer BC, SELFPAY | END 2023-05-20 19:25 | disposition home or self-care (01) | LOC: NCHCN 19:24 | PROVIDERS: PCP Family Medicine; Visit Provider Family Medicine | DX: E11.9 Type 2 diabetes mellitus without complications (principal) | CPT/HCPCS: 84681 ==

== ENCOUNTER 2023-09-07 22:23 | Outpatient (REF) | payer BC, SELFPAY ==
[2023-09-07 20:51] LABS: Hemoglobin A1C 6.5 % (<5.7)
== END 2023-09-07 22:24 | disposition home or self-care (01) ==
LOC: NCHCN 22:23
PROVIDERS: PCP Family Medicine; Visit Provider Family Medicine
DX: E11.9 Type 2 diabetes mellitus without complications (principal)
CPT/HCPCS: 83036

== ENCOUNTER 2024-08-16 14:44 | Outpatient (REF) | payer BC, SELFPAY | END 2024-08-16 14:45 | disposition home or self-care (01) | LOC: LBN 14:44 | PROVIDERS: PCP Family Medicine; Visit Provider Nurse Practitioner Family | DX: J06.9 Acute upper respiratory infection, unspecified (principal) | CPT/HCPCS: 87070 ==

== ENCOUNTER 2024-08-24 18:37 | Outpatient (REF) | payer BC, SELFPAY ==
[2024-08-24 15:22] LABS: Anion Gap 10.1 mmol/L (3-11); BUN 14 mg/dL (7-18); CO2 26.9 mmol/L (21.0-32.0); CREATININE 0.9 mg/dL (0.70-1.30); Calcium 9.7 mg/dL (8.5-10.1); Calculated LDL 74 mg/dL (<100); Chloride 106 mmol/L (98-107); Cholesterol 163 mg/dL (<200); Estimated GFR 108.68 (mL/min/1.73m2); Glucose 117 mg/dL (74-106); HDL Cholesterol 39 mg/dL (40-60); Potassium 4.3 mmol/L (3.5-5.1); Sodium 143 mmol/L (136-145); Triglyceride 253 mg/dL (<150)
== END 2024-08-24 18:38 | disposition home or self-care (01) ==
LOC: NCHCN 18:37
PROVIDERS: PCP Family Medicine; Visit Provider Student in an Organized Health Care Education/Training Program
DX: I10 Essential (primary) hypertension (principal); E78.5 Hyperlipidemia, unspecified
CPT/HCPCS: 80048; 80061